=== PATIENT | male | born 1950 | race Caucasian/White ===

== ENCOUNTER 2018-05-07 11:20 | Day surgery (SDC) | payer MEDICARE ==
[~2018-05-07] VITALS: Ht 195.6 cm; Wt 115.7 kg
[~2018-05-07 11:20] MED LIST: ALPRAZOLAM0.5 MG PO; ASPIRIN EC325 MG PO; ATENOLOL100 MG PO; B COMPLEX1 EACH PO; CEPHALEXIN250 MG PO; CEPHALEXIN500 MG PO; CIPRO500 MG PO; CIPROFLOXACIN500 MG PO; COQ-10100 MG PO; DULCOLAX10 MG PR; GLIMEPIRIDE1 MG PO; GLYCOLAX225 GM PO; HYDROCODON-ACE1 EA10 PO; KEFLEX500 MG PO; LEVAQUIN750 MG PO; LEVO-T150 MCG PO; LOSARTAN POTAS100 MG PO; LOSARTAN POTASS25 MG PO; METAMUCIL FIBE3.4 GM PO; MULTIVITAMINS1 EAC8 PO; NORCO 5-325 TA1 EACH PO; OMEGA-31000 MG PO; OMEPRAZOLE20 M1 PO; PANTOPRAZOLE SO40 MG PO; POTASSIUM CHLO10 MEQ PO; PROBIOTIC1 EAC1 PO; PROTONIX40 MG PO; VERAPAMIL ER120 M1 PO; VERAPAMIL HCL120 MG; VITAMIN C250 MG PO; VITAMIN D5000 UNIT PO; WARFARIN SODIU7.5 MG PO; WARFARIN SODIUM5 MG PO
[2018-05-07] MEDS ORDERED: LEVAQUIN500 MG PO (17:30)
[2018-05-07] MEDS ORDERED: PERCOCET 5-3251 EACH PO (17:30)
[2018-05-07] MEDS ORDERED: PYRIDIUM200 MG PO (17:31)
--- NOTE | 2018-05-10 14:20 | OR ---
[facility] [address] [facility] [address] [place] [address] Signed DATE OF OPERATION: 05/07/2018 SURGEON: Vickie Hayes MD PREOPERATIVE DIAGNOSES: 1. 2.5 cm bladder calculus. 2. Neurogenic bladder with resulting urinary retention. POSTOPERATIVE DIAGNOSES: 1. 2.5 cm bladder calculus. 2. Neurogenic bladder with resulting urinary retention. NAMES OF PROCEDURES: 1. Diagnostic cystoscopy. 2. Urethral dilation from 16-Micronesian to 24-Micronesian. 3. Laser lithotripsy and extraction of multiple bladder calculi, the largest measuring 2.5 cm. ANESTHESIA: General. ESTIMATED BLOOD LOSS: Minimal. COMPLICATIONS: None. SPECIMENS: Multiple bladder calculi fragments sent to the lab for stone analysis. DRAINS: A 22-Micronesian three-way Rm catheter, connected to gravity drainage. INDICATIONS FOR PROCEDURE: Mr. Aparicio is a very pleasant 68-year-old gentleman with neurogenic bladder, which results in urinary retention. The patient currently catheterizes himself every 6 hours or so using a 14-Micronesian catheter. He has a history of urethral stricture and has reportedly undergone surgery for urethral stricture in the past. He recently underwent a KUB, given his history of a neurogenic bladder. He was found to have a 2.5 cm stone present within his bladder. He is a former patient of Dr. Kristina Paul, who at that Electronically Signed By: VICKIE HAYES MD 05/10/18 1420 PATIENT NAME: FABIENNE APARICIO OPERATIVE REPORT DATE OF : 52 REPORT #: [id number] PHYSICIAN: VICKIE HAYES MD PCP: Dez GUTIÉRREZ MD REPORT IS CONFIDENTIAL AND NOT TO BE RELEASED WITHOUT AUTHORIZATION [facility] [address] [place], [place] [address] Signed time noted bilateral Hutch diverticula that was subsequently causing issues with recurrent urinary tract infections. He presents today to undergo cystoscopy with possible urethral dilation, along with lithotripsy and extraction of his large bladder stone. OPERATIVE FINDINGS: 1. Urethroscopy revealed an approximately 16-Micronesian caliber pendulous urethra. No obvious strictures or stenoses noted. I was able to successfully dilate the patient's pendulous urethra from a 16-Micronesian to a 24-Micronesian without difficulty. 2. Diagnostic cystoscopy revealed presence of a large capacity bladder with two large Hutch diverticula located on the lateral wall of each side of the bladder. There is an approximately 2 cm os that communicates with each Hutch diverticulum. On the left-sided Hutch diverticulum, I located the very large 2.5 cm stone, along with multiple smaller stone fragments. 3. The large stone was basketed and brought out to the main portion of the bladder where it was then fragmented into smaller stones using a 600 micron fiber. All of the stone fragments were then extracted from the bladder via the cystoscope. 4. At the end of the procedure, a 22-Micronesian three-way Rm catheter was inserted into the patient's bladder and connected to gravity drainage. A three-way Rm catheter was inserted in anticipation of possible gross hematuria postoperatively. DESCRIPTION OF PROCEDURE: After informed consent was obtained, the patient was taken back to the operating room. He was transferred from the [facility] to the operating room table, where general anesthesia was induced. He was placed in the dorsal lithotomy position and his genitalia prepped and draped in a standard sterile fashion. Using a 30-degree lens on a 17-Micronesian introducer, rigid cystoscope was inserted through the patient's urethra and a complete urethroscopy was performed. Please see above findings. A 0.035 Sensor wire was placed into the patient's bladder via the cystoscope. The cystoscope was removed and then the patient's bladder was then dilated using Ad sounds over a wire from 16-Micronesian to 24-Micronesian without difficulty. I was then able to insert a 22-1/2-Micronesian sheath under direct visualization and a thorough cystoscopy was performed. Please see above findings. Bilateral ureteral orifices were in the normal anatomic location. There were no obvious bladder masses or lesions noted. There was however a very large stone located in the left Hutch diverticulum. The patient has two Hutch diverticula present on the lateral wall on both sides. There was approximately 2 cm os that communicates with the main bladder and each Hutch diverticulum. On the left side of the Hutch diverticulum where I located the multiple bladder calculi, the largest one measuring 2.5 cm in size. The smaller stone fragments were extracted immediately using a Zero tip basket. The large bladder calculus was brought out from the Hutch and into the main bladder where it was then fragmented using a 600 micron holmium laser fiber. Once the bladder stone was fragmented to my satisfaction, I extracted all the small stone Electronically Signed By: VICKIE HAYES MD 05/10/18 2599 PATIENT NAME: FABIENNE APARICIO OPERATIVE REPORT DATE OF : 52 REPORT #: [id number] PHYSICIAN: VICKIE HAYES MD PCP: Dez GUTIÉRREZ MD REPORT IS CONFIDENTIAL AND NOT TO BE RELEASED WITHOUT AUTHORIZATION [address] [address] Signed fragments via the cystoscope. Once the patient's bladder was completely free of stone, debris, and sediment, the patient's bladder was then drained and the cystoscope was removed. A 22-Micronesian three-way Rm catheter was inserted into the patient's bladder and connected to gravity drainage. The procedure was then terminated. The patient tolerated the procedure well without any complication. He will now be transferred to the postanesthesia care unit in stable condition. DISPOSITION: Mr. Aparicio will be discharged to home later today in stable condition. I discussed the results of today's procedure with his and answered all of her questions. He will be sent home with Levaquin for a total of 7 days. He will return to clinic in approximately 3 days to undergo removal of his Rm catheter. He will then return to his usual self catheterization schedule. I recommended to the patient that he increase the diameter of his catheters to 16-Micronesian. I also had a long discussion with the patient's today regarding ways to diminish his risk of recurrent UTIs and bladder stones. I recommended that the best way to do so would be to undergo a diverticulectomy at the hands of a surgeon, who specializes in this area. The will discuss this in detail with her once he is fully recovered. MD TUTU Aguilar/RIVAS /[id number] Copies: ~ Electronically Signed By: VICKIE HAYES MD 05/10/18 1420 PATIENT NAME: FABIENNE APARICIO OPERATIVE REPORT DATE OF : 52 REPORT #: [id number] PHYSICIAN: VICKIE HAYES MD PCP: Dez GUTIÉRREZ MD REPORT IS CONFIDENTIAL AND NOT TO BE RELEASED WITHOUT AUTHORIZATION
[2018-05-15] MEDS ORDERED: VERAPAMIL ER120 M1 PO (12:42)
[2018-05-15] MEDS ORDERED: ATENOLOL50 MG PO (12:43)
[2018-05-15] MEDS ORDERED: WARFARIN SODIUM5 MG PO (14:22)
[2018-05-15] MEDS ORDERED: METAMUCIL660 GM PO (14:25)
== END 2018-05-07 18:35 | disposition home or self-care (01) ==
LOC: DS 11:20 → OPS 11:20 → DS 13:00 → OPS 18:35
PROVIDERS: Urology
PROC: 0TCB8ZZ Extirpation of Matter from Bladder, Via Natural or Artificial Opening Endoscopic (ICD-10-PCS; principal; 2018-05-07 13:00)
DX: N21.0 Calculus in bladder (principal); N32.3 Diverticulum of bladder; N31.9 Neuromuscular dysfunction of bladder, unspecified; R33.9 Retention of urine, unspecified; I10 Essential (primary) hypertension; E11.9 Type 2 diabetes mellitus without complications; E03.9 Hypothyroidism, unspecified; D68.9 Coagulation defect, unspecified; F32.9 Major depressive disorder, single episode, unspecified; Z88.1 Allergy status to other antibiotic agents; Z86.73 Personal history of transient ischemic attack (TIA), and cerebral infarction without residual deficits; Z79.82 Long term (current) use of aspirin; Z79.84 Long term (current) use of oral hypoglycemic drugs; Z79.899 Other long term (current) drug therapy
CPT/HCPCS: 82365; J1580; J2250; J2370; J2405; J3010; J3370; J7040; J7120

== ENCOUNTER 2018-08-26 09:56 | Emergency (ER) | payer MEDICARE ==
[~2018-08-26] VITALS: Ht 195.6 cm; Wt 115.7 kg
--- OUTSIDE RECORDS SUMMARY | ~2018-08-26 | XMS | Clinical Summary ---
Demographics + + + | Address | [address] | | | [place] [address] | + + + | Home Phone | | + + + | Preferred Language | Unknown | + + + | Marital Status | Unknown | + + + | Yazidism Affiliation | Unknown | + + + | Race | Unknown | + + + | Ethnic Group | Unknown | + + + Author + + + | Author | [facility] | | | and Pb | + + + | Organization | [facility] | | | and [place] | + + + | Address | Unknown | + + + | Phone | Unavailable | + + + Care Team Providers + +------+ + | Care Assignment Officer Name | Role | Phone | + +------+ + PP | Unavailable | + +------+ + Allergies Not on File Current Medications Not on file Active Problems Not on file Social History + +-------+ +--------+------+ | Tobacco Use | Types | Packs/Day | Years | Date | | | | | Used | | + +-------+ +--------+------+ | Never Assessed | | | | | + +-------+ +--------+------+ + + + | Sex Assigned at | Date Recorded | | | | + + + | Not on file | | + + + Plan of Treatment + + + + + | Health Maintenance | Due Date | Last Done | Comments | + + + + + | Vaccine: | | | | | Dtap/Tdap/Td (1 - | 0 | | | | Tdap) | | | | + + + + + | Vaccine: Zoster (1 | | | | | of 2) | 1 | | | + + + + + | Vaccine: | | | | | Pneumococcal 65+ | 6 | | | | Low/Medium Risk (1 | | | | | of 2 - PCV13) | | | | + + + + + | Vaccine: Influenza | | | | | (#1) | 8 | | | + + + + + Results Not on filefrom Last 3 Months"
--- OUTSIDE RECORDS SUMMARY | ~2018-08-26 | XMS | Clinical Summary ---
Demographics + + + | Address | [address] | | | [place] [address] | + + + | Home Phone | | + + + | Preferred Language | Unknown | + + + | Marital Status | Unknown | + + + | Cheondoism Affiliation | Unknown | + + + | Race | Unknown | + + + | Ethnic Group | Unknown | + + + Author + + + | Author | NON REVENUE LOCATIONS | + + + | Organization | NON REVENUE LOCATIONS | + + + | Address | Unknown | + + + | Phone | Unavailable | + + + Care Team Providers + +------+ + | Care Field Crop Harvest Worker Name | Role | Phone | + +------+ + PP | Unavailable | + +------+ + Source Comments PAULA is fully live on both [facility] and [facility] Allergies Not on File Current Medications Not [...] | + + + + + | Pneumococcal (Adult) | | | | | (1 of 2 - PCV13) | 6 | | | + + + + + | INFLUENZA VACCINE | | | | | (FLU SHOT) | 8 | | | + + + + + Results Not on filefrom Last 3 Months"
--- OUTSIDE RECORDS SUMMARY | ~2018-08-26 | XMS | Clinical Summary ---
Demographics + + + | Address | [address] | | | [place] [address] | + + + | Home Phone | | + + + | Preferred Language | Unknown | + + + | Marital Status | Unknown | + + + | Jewish Affiliation | Unknown | + + + | Race | Unknown | + + + | Ethnic Group | Unknown | + + + Author + + + | Author | [facility] | | | and Pb | + + + | Organization | [facility] | | | and [place] | + + + | Address | Unknown | + + + | Phone | Unavailable | + + + Care Team Providers + +------+ + | Care Nurse Care Manager Name | Role | Phone | + [...]
--- OUTSIDE RECORDS SUMMARY | ~2018-08-26 | XMS | Clinical Summary ---
Demographics + + + | Address | [address] | | | [place] [address] | + + + | Home Phone | | + + + | Preferred Language | Unknown | + + + | Marital Status | Unknown | + + + | Christian Affiliation | Unknown | + + + [...] Team Providers + +------+ + | Care Tank Cleaner Name | Role | Phone | + +------+ + PP | Unavailable | + +------+ + Source Comments PAULA is fully live on both [facility] and [facility] InPatient.[facility] Allergies Not on File Current Medications Not [...]
[~2018-08-26 09:56] MED LIST changes: +ATENOLOL50 MG PO; +IRON325 M1 PO; +LEVAQUIN500 MG PO; +LIPITOR20 MG PO; +METAMUCIL660 GM PO; +PERCOCET 5-3251 EACH PO; +PYRIDIUM200 MG PO
== END 2018-08-26 15:15 | disposition home or self-care (01) ==
LOC: ED 09:56
DX: M25.551 Pain in right hip (principal); R53.1 Weakness; E11.9 Type 2 diabetes mellitus without complications; I10 Essential (primary) hypertension; Z88.8 Allergy status to other drugs, medicaments and biological substances; Z79.899 Other long term (current) drug therapy; Z79.84 Long term (current) use of oral hypoglycemic drugs; Z79.01 Long term (current) use of anticoagulants; W17.89XA Other fall from one level to another, initial encounter
CPT/HCPCS: 70450; 73502; 73700; 99284

== ENCOUNTER 2020-01-20 14:44 | Observation (INO) | payer MEDICARE ==
[~2020-01-20] VITALS: Ht 195.6 cm; Wt 108.4 kg
[~2020-01-20 14:44] MED LIST changes: +LIPITOR10 MG PO; +VITAMIN D32000 UNI1 PO
--- OUTSIDE RECORDS SUMMARY | 2020-01-20 14:48 | XMS ---
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 Care History Medical/Surgical 07/09/2019 [facility] - [facility] RECEIVED CASE MANAGEMENT CONSULT- FOR FOLLOW UP WITH PATIENT AFTER ED DISCHARGE. - [facility] PROVIDED ED NOTES TO PATIENT UROLOGIST DR HAYES. DR HAYES WILL BE CONTACTING PATIENT TODAY 07/09/19 AND SCHEDULING A FOLLOW UP APT. 07/09/2019 [facility] - Patient is currently established with [facility]. If patient is seen in the ED during business hours. Please contact CHWs at [facility]. Care Recommendation: This patient has had 5 or more Emergency Department visits in the last 12 months.\T\nbsp; Patient requires education on the scope and purpose of the ED as an acute care provider not a Primary Care Provider and should not be utilized for chronic conditions.\T\nbsp; These are guidelines and the provider should exercise clinical judgment when providing care. E.D. VISIT COUNT (12 MO.) 2 [facility]. TOTAL 2 NOTE: Visits indicate total known visits. 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
--- NOTE | 2020-01-20 17:50 | EKG ---
[facility] [address], [place] [address] Signed Normal sinus rhythm Low voltage QRS Borderline ECG When compared with ECG of 01-MAY-2018 14:59, No significant change was found Confirmed by WILLIS PENA MD ([id number]) on 01/20/2020 5:50:06 PM Electronically Signed By: WILLIS PENA MD 01/20/20 175 PATIENT NAME: DIDIERFABIENNE THIAGO Electrocardiogram DATE OF : 52 PHYSICIAN: WILLIS PENA MD REPORT #: [id number] REPORT IS CONFIDENTIAL AND NOT TO BE RELEASED WITHOUT AUTHORIZATION
--- NOTE | 2020-01-20 22:10 | NUR ---
ADMISSION COMPLETED. PATIENT ARRIVED VIA STRETCHER. PATIENT MOVED TO BED FROM STRETCHER. PATIENT HAS [address] PATIENTS MACHUCA EMPTIED. MACHUCA CARE COMPLETED. PATIENT OREINTED TO FLOOR, CALL LIGHT, AND ROOM. PATIENT DENIES ANY QUESTIONS. NO NEEDS NOTED. CALL LIGHT IN REACH.
--- NOTE | 2020-01-20 22:38 | NUR ---
EMPTIED MACHUCA AND NEW BAG OF IRIGATION IN PLACE.
[2020-01-20] MEDS ORDERED: NITROFURANTOIN100 MG PO (23:23)
--- NOTE | 2020-01-20 23:24 | NUR ---
IN ROOM TO ASSESS PT AND EMPTY CBI BAG. INCREASED FLUID RATE AGAIN DRAINAGE IS STILL PRETTY RED. PT REPORTS FEELING SHAKY, ALTHOUGH IT IS NOT VISABLY SEEN. TOOK HIS VS AGAIN AND THEY ARE ALL WNL. HE REPORTS IS BS WAS RECENTLY TAKEN AND IS 166 AND HE ATE A SANDWICH AND APPLEJUICE WHEN HE ARRIVED TO THE FLOOR. PT HAS RESIDUAL R SIDED WEAKNESS AND N/T FROM PRIOR STROKE WELL BILAT LE NEUROPATHY. HE DENIES FURTHER NEEDS AT THIS TIME ADVISED PT TO CALL AND LET US KNOW IF SHAKING GETS WORSE. CALL LIGHT IN HAND AND HE REPORTS NOT FEELING COLD WITH BLANKETS OFF.
--- NOTE | 2020-01-20 23:58 | NUR ---
WENT IN TO THE ROOM TO EMPTY THE CBI BAG. PATIENT STATED "IT STARTING HURT AGAIN". PRIMARY RN NOTIFIED. WARM BLANKET PROVIDED.
--- NOTE | 2020-01-21 00:07 | NUR ---
WENT INTO ROOM TO TALK TO PT ABOUT PAIN AND PT IS RESTING WITH EYES CLOSED AT THIS TIME. CALL LIGHT IS CLOSE.
--- NOTE | 2020-01-21 01:30 | NUR ---
MACHUCA BAG CLOTTED AND CHANGED OUT FOR A NEW ONE. PT WAS ALSO HAVING 7/10 PAIN AT THIS TIME AND LINE WAS NOT RUNNING MUCH. COMMISSARY AGENT FLUSHED CATHETER AND IT A CLOT FLOWED OUT. PT HAD IMMEDIATE RELIEF AND NO LONGER WAS IN PAIN. TURNED FLUID UP RUNNING THROUGH CBI. PT DENIES FURTHER NEEDS AT THIS TIME CALL LIGHT IS WITHIN REACH.
--- NOTE | 2020-01-21 02:20 | NUR ---
ADMINSITERED INSULIN AND EMPTIED MACHUCA. CBI IS INFUSING FINE, PT DENIES PAIN AT THIS TIME. CALL LIGHT IS CLOSE.
--- NOTE | 2020-01-21 03:35 | NUR ---
EMPTIED MACHUCA, IN ORDER TO KEEP IT FROM CLOTTING THE BAGS HAVE TO BE CHECKED [id number] ALONG WITH EMPTYING THE MACHUCA BAG. PT DENIES PAIN AT THIS TIME. CALL LIGHT IS CLOSE.
--- NOTE | 2020-01-21 04:15 | NUR ---
EMPTIED MACHUCA AND HUNG 2 NEW BAGS OF CBI FLUID. PT IS RESTING WITH EYES CLOSED, RR IS EVEN AND NONLABORED. IV IS INFUSING FINE. NO CLOTS NOTED IN CBI BAG.
--- NOTE | 2020-01-21 04:45 | NUR ---
EMPTIED MACHUCA BAG. PT IS RESTING WITH EYES CLOSED, RR IS EVEN AND NONLABORED. CALL LIGHT IS CLOSE.
--- NOTE | 2020-01-21 05:19 | NUR ---
IN ROOM TO START NEW IV FLUID. DUSTIN LARA RN SWITCHED MACHUCA BAG TO LARGER BAG. PT DENIES PAIN AT THIS TIME. HIS CBI FLUID IS RUNNING LIGHT PINK NOW. CALL LIGHT IS CLOSE AND IV IS INFUSING FINE.
--- NOTE | 2020-01-21 06:09 | NUR ---
PT TRIED USING BED ALEXIS BUT DID NOT HAVE A BM. AFTER ROLLING TO HIS SIDE HIS HIS CBI TUBING INCREASED IN REDNESS FROM LIGHT PINK. PT DENIES NEEDS AT THIS TIME. CALL LIGHT IS CLOSE.
--- NOTE | 2020-01-21 06:55 | NUR ---
PLACED CALL TO MD TO UPDATE PATIENT. MD UPDATED AND ALL QUESTIONS ANSWERED. LAB ORDERED PER MD. LAB NOTIFIED. LAB ON THE FLOOR TO DRAW LABS.
--- NOTE | 2020-01-21 07:45 | NUR ---
PT TRANSPORTED TO OR VIA HOSPITAL BED.
--- NOTE | 2020-01-21 09:21 | NUR ---
01/21/20 0921 Audrey Brandt 0908-PATIENT ARRIVED TO PACU ON 6L MASK NONAROUSABLE. ORAL AIRWAY IN PLACE. PATIENTS HEAD REPOSITIONED TO MAINTAIN OPEN AIRWAY. SR. CBI CONNECTED TO MACHUCA DRAINING CLEAR URINE. CBI WAS SLOWED DOWN BY RETAIL FINANCIAL ANALYST. 0914-PATIENT AROUSING TO VERBAL STIMULI OPENING EYES ORAL AIRWAY REMOVED. 0918-PLACED ON RA. RR EVEN. 100% PATIENT AWAKE DROWSY DENIES PAIN OR NAUSEA.
[2020-01-21] MEDS ORDERED: ATORVASTATIN CA20 MG PO (09:49)
[2020-01-21] MEDS ORDERED: GLIMEPIRIDE2 MG PO (09:53)
--- NOTE | 2020-01-21 10:10 | NUR ---
PT TO ROOM 123 FROM PACU. PT ALERT AND ORIENTED ON ROOM AIR, REPORTS NO PAIN OR NAUSEA AT THIS TIME. V/S SATBLE, CBI INFUSING TITRATING DOWN, URINE IN MACHUCA TUBE AND BAG CLEAR YELLOW.
--- NOTE | 2020-01-21 10:35 | NUR ---
RECIEVED REPORT FROM DESIREE. PT LYING IN BED AWAKE. DENIES PAIN OR PRESSURE. CBI FLOWING AT SLOW RATE, URINE IN BAG AND TUBE CLEAR AND LIGHT YELLOW. IV INFUSING WNL. CLEAR LIQUIDS ORDERED. CALL LIGHT WITHIN REACH.
--- NOTE | 2020-01-21 13:00 | NUR ---
Spoke with Eder following his surgery. He lives in [place] with his . 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 House is a 1 story with 2 steps to get in. He has handrails. Daughter checks on them. He states his has been ill with sepsis and recently released from [place]. He self caths and get his equipment from [facility]. Has Walker, shower chair, and tall toilet. Per pt he will dc to home this afternoon.
--- NOTE | 2020-01-21 13:14 | NUR ---
PATIENT SITTING UP IN BED TAKING HIS LUNCH. VITAL SIGNS AND I&O DONE. ICE WATER GIVEN. CALL LIGHT WITHIN REACH. NO OTHER NEEDS AT THIS TIME
[2020-01-21] MEDS ORDERED: [UNRECOGNIZED DRUG - OTHER] (13:35)
[2020-01-21] MEDS ORDERED: PERCOCET 5-3251 EACH PO (13:43)
[2020-01-21] MEDS ORDERED: BELLADONNA-OPIU30 MG PR (13:44)
--- NOTE | 2020-01-21 13:45 | NUR ---
CBI CLAMPED AT THIS TIME. URINE REMAINS CLEAR LIGHT YELLOW. PT HAS AMALIA CLEAR LIQUIDS. DENIES PAIN OR OTHER CONCERN. ASSISTED TO ORDER LUNCH. CALL LIGHT WITHIN REACH.
--- NOTE | 2020-01-21 16:15 | NUR ---
APPLIED LEG BAG PER ORDERS AND EDUCATED PT AND HIS ON USE OF LEG BAG, OVERNIGHT BAG, AND MACHUCA CATH CARE. WHEN PT MOVED TO EDGE OF BED TO GET DRESSED IT WAS NOTED THAT HE HAD A SMALL AMOUNT OF BRIGHT RED BLEEDING FROM URETHRAL MEATUS. CLEANED UP AND BLEEDING STOPPED QUICKLY. PT CONT TO GET DRESSED WITH HELP FROM . IV'S DC'D WNL.
--- NOTE | 2020-01-21 16:25 | NUR ---
CALLED TO REPORT PT CONCERNS OF FEELING WEAK AT THIS TIME. DR. HAYES FEELS HE IS SAFE TO DISCHARGE, PT HAS BEEN UP IN ROOM TO DRESS WITH MINIMAL ASSIST AND WAS ABLE TO AMBULATE WITH HIS OWN WALKER WITH STREADY PACE TO TRANSFER TO WHEELCHAIR.
--- NOTE | 2020-01-27 08:09 | OR ---
[facility] [address], [place] [address] Signed DATE OF OPERATION: 01/21/2020 SURGEON: Vickie Hayes MD PREOPERATIVE DIAGNOSES: 1. Acute onset severe gross hematuria, with associated blood clots. 2. Urinary retention. 3. Neurogenic bladder, secondary to longstanding bladder outlet obstruction. POSTOPERATIVE DIAGNOSES: 1. Acute onset severe gross hematuria, with associated blood clots. 2. Urinary retention. 3. Neurogenic bladder, secondary to longstanding bladder outlet obstruction. 4. No obvious evidence of source of gross hematuria, cause of hematuria likely secondary to trauma during self catheterization. NAMES OF PROCEDURES: 1. Diagnostic cystoscopy with blood clot evacuation and bladder irrigation. 2. Complicated insertion of indwelling 24-Mauritanian 3-way Rm catheter. ANESTHESIA: General. ESTIMATED BLOOD LOSS: 100 mL. COMPLICATIONS: None. SPECIMENS: None. DRAINS: A 24-Mauritanian 3-way Rm catheter, connected to continuous bladder irrigation. INDICATIONS FOR PROCEDURE: Mr. Aparicio is a very pleasant -[id number] gentleman, who is relatively well known to me. Over a year ago, he underwent cystoscopy with cystolitholapaxy for extraction of multiple large bladder stones present in his bilateral Hutch bladder diverticula. He has a history of urinary retention secondary to neurogenic bladder, Electronically Signed By: VICKIE HAYES MD 01/27/20 0809 PATIENT NAME: FABIENNE APARICIO OPERATIVE REPORT DATE OF : 52 REPORT #: [id number] PHYSICIAN: VICKIE HAYES MD PCP: JEZ PEGUERO MD REPORT IS CONFIDENTIAL AND NOT TO BE RELEASED WITHOUT AUTHORIZATION [facility] [address] [place], [place] [address] Signed which developed as a consequence of longstanding bladder outlet obstruction. The patient currently manages his bladder with self catheterization q.4 hours. The patient reports approximately 4 days ago, he noticed beginnings of some gross hematuria at the end of catheterization. This worsened very quickly to the point where he was experiencing active blood clots and experiencing difficulties with self catheterization. He also subsequently experienced clot retention and was seen in the emergency department on the evening of January 20, 2020, for severe gross hematuria with associated bladder spasms. He underwent a CT scan at that time, which revealed multiple well-organized blood clots within the patient's otherwise very distended bladder. A nurse in the emergency department manually irrigated the patient, was able to get some of the blood clots out, however the catheter was not draining on its own and required continuous bladder irrigation. Of note, his blood work was otherwise within normal limits including hemoglobin in the 15 range. He was admitted by ma and placed on continuous bladder irrigation for management of his persistent gross hematuria. Of note, the patient takes Coumadin daily for history of ischemic stroke, which occurred a few years ago. On the following morning, the patient's gross hematuria was still rather severe and requiring multiple bags of sterile saline to keep the Rm catheter patent. The decision was made at that time to take the patient to the operating room, where he would undergo cystoscopy with blood clot evacuation and to hopefully determine the cause of the gross hematuria. OPERATIVE FINDINGS: 1. Digital rectal examination was performed, which revealed diffusely enlarged prostate with no evidence of any discrete nodules on palpation. 2. Diagnostic cystoscopy revealed no evidence of any obvious urethral trauma. The bladder was full of well-organized blood clots located in the main chamber of the bladder as well as in the bilateral Hutch diverticula. These clots were irrigated out successfully using a Osman syringe. 3. Formal diagnostic cystoscopy performed without obstructing blood clot revealed no obvious evidence of the source of the bleeding. There was no evidence of any suspicious masses, lesions, or stones within the bladder. There were a couple of areas of erythema on the wall of the bladder, consistent with his recent indwelling Rm catheter. 4. After all the blood clots were successfully extracted from the patient's bladder, a 24-Mauritanian 3-way Rm catheter was inserted into the patient's bladder over a Sensor wire to ensure proper placement. This catheter was then connected to continuous bladder irrigation. DESCRIPTION OF PROCEDURE: After informed consent was obtained, the patient was taken back to the operating room. He was transferred from the [facility] to the operating room table, where general anesthesia was induced. He was placed in the dorsal lithotomy position and his genitalia prepped and draped in a standard sterile fashion. Using a 30-degree lens on a 22-1/2 Mauritanian Electronically Signed By: VICKIE HAYES MD 01/27/20 0809 PATIENT NAME: FABIENNE APARICIO OPERATIVE REPORT DATE OF : 52 REPORT #: [id number] PHYSICIAN: VICKIE HAYES MD PCP: JEZ PEGUERO MD REPORT IS CONFIDENTIAL AND NOT TO BE RELEASED WITHOUT AUTHORIZATION [address] [address] Signed introducer, a rigid cystoscope was inserted through the urethra and into his bladder under direct visualization. Panendoscopic views of the bladder were then obtained. Please see above findings. The cystoscope was removed and the patient's bladder was irrigated with a Osman syringe. I was able to extract quite a few very large well-organized clots from the patient's bladder. This required about 15-20 minutes of active manual bladder irrigation. A cystoscopy was repeated and this time I was able to easily appreciate the entire bladder and closely inspect the wall of the bladder and the Hutch diverticula. There is no evidence of any overt prostatic hypertrophy as he had had a TURP in the past. Once I was satisfied that there were no obvious areas that required cauterization, the cystoscope was removed. A Sensor wire was inserted through the 26-Mauritanian sheath and into the patient's bladder. The sheath was removed fully intact. Over the wire, a 24-Mauritanian 3-way Rm catheter was inserted into the patient's bladder, connected to continuous bladder irrigation. The procedure was then terminated. The patient was taken to the PACU in stable condition. DISPOSITION: I discussed the details of today's procedure with the patient and his and answered all their questions. I anticipate that the patient will be discharged to home later today with a Rm catheter to gravity drainage. I have ordered the patient to stop use of his Coumadin for now until I can speak with Dr. Peguero and request that he see the patient in consultation to reassess the need for daily Coumadin use in a patient with a relatively remote history of ischemic CVA. He was also instructed to continue his current Macrobid suppression dose, 100 mg p.o. at bedtime for prevention of recurrent UTIs. He will be scheduled to return to Urology Clinic in one week with a nurse visit to have his Rm catheter removed. Hopefully at that time we will have a better idea of whether or not he will need to remain on Coumadin therapy. Vickie Hayes MD AR/MODL /[id number] Copies: Electronically Signed By: VICKIE HAYES MD 01/27/20 0809 PATIENT NAME: FABIENNE APARICIO OPERATIVE REPORT DATE OF : 52 REPORT #: [id number] PHYSICIAN: VICKIE HAYES MD PCP: JEZ PEGUERO MD REPORT IS CONFIDENTIAL AND NOT TO BE RELEASED WITHOUT AUTHORIZATION [address] [address] Signed ~ Electronically Signed By: VICKIE HAYES MD 01/27/20 0809 PATIENT NAME: FABIENNE APARICIO OPERATIVE REPORT DATE OF : 52 REPORT #: [id number] PHYSICIAN: VICKIE HAYES MD PCP: JEZ PEGUERO MD REPORT IS CONFIDENTIAL AND NOT TO BE RELEASED WITHOUT AUTHORIZATION
--- NOTE | 2020-01-29 10:08 | NUR ---
FOLLOW UP CALL WITH PT. STATES HE HAD ONE FOLLOW UP VISIT WITH DR HAYES OFFICE AND THEY REMOVED HIS MACHUCA AND SINCE HE HAS BEEN SELF CATHING LIKE HE NORMALLY DOES. NOTED SOME BLOOD AND A FEW CLOTS. BUT IS FOLLOWING UP WITH DR PEGUERO THIS AFTERNOON. STATES HE IS INCREASING HIS ACTIVITY GRADUALLY AND THINKS DR PEGUERO MAY RESTART HIS COUMADIN OR SOMETHING. DENIES FURTHER QUESTIONS, OR CONCERNS AT THIS TIME.
== END 2020-01-21 16:33 | disposition home or self-care (01) ==
LOC: ED 14:44 → MS 14:46
PROVIDERS: ADMIT Urology
PROC: 0T9B80Z Drainage of Bladder with Drainage Device, Via Natural or Artificial Opening Endoscopic (ICD-10-PCS; 2020-01-21)
PROC: 0TCB8ZZ Extirpation of Matter from Bladder, Via Natural or Artificial Opening Endoscopic (ICD-10-PCS; principal; 2020-01-21 07:49)
DX: R31.0 Gross hematuria (principal); R33.9 Retention of urine, unspecified; N31.9 Neuromuscular dysfunction of bladder, unspecified; N13.9 Obstructive and reflux uropathy, unspecified; N32.89 Other specified disorders of bladder; E11.9 Type 2 diabetes mellitus without complications; E78.00 Pure hypercholesterolemia, unspecified; I10 Essential (primary) hypertension; N32.0 Bladder-neck obstruction; Z87.440 Personal history of urinary (tract) infections; Z86.73 Personal history of transient ischemic attack (TIA), and cerebral infarction without residual deficits; Z88.8 Allergy status to other drugs, medicaments and biological substances; Z88.1 Allergy status to other antibiotic agents; Z79.2 Long term (current) use of antibiotics; Z79.01 Long term (current) use of anticoagulants; Z79.84 Long term (current) use of oral hypoglycemic drugs; Z79.899 Other long term (current) drug therapy
CPT/HCPCS: 00910; 36415; 51700; 51702; 71045; 74177; 80053; 81001; 83605; 85025; 85610; 86850; 86900; 86901; 87040; 93005; 93010; 96361; 99285-25; G0378; J0692; J1100; J1170; J1815; J2001; J2370; J2405; J2704; J3010; J7030

== ENCOUNTER 2021-10-09 20:02 | Observation (INO) | payer MEDICARE ==
[~2021-10-09] VITALS: Ht 195.6 cm; Wt 111.9 kg
[~2021-10-09 20:02] MED LIST changes: +ATORVASTATIN CA20 MG PO; +BELLADONNA-OPIU30 MG PR; +FEROSUL325 MG PO; +GLIMEPIRIDE2 MG PO; -IRON325 M1 PO; +NITROFURANTOIN100 MG PO; +VITAMIN D3125 MC1 PO; -VITAMIN D5000 UNIT PO; +[UNRECOGNIZED DRUG - OTHER]
--- NOTE | 2021-10-10 01:13 | NUR ---
REPORT FROM FABIENNE Zimmer RN.
--- NOTE | 2021-10-10 01:46 | NUR ---
PT ARRIVED TO [facility] FLOOR AT 0116 AND WAS PULLED OVER TO BED 3PA. VS TAKEN AND ENTERED AND WNL. MACHUCA CATH IN PLACE. PT HAS FWW FROM HOME IN ROOM. COMPLETED ADMISSION HX WITH PT. PT IS POOR HISTORIAN WITH DETAILS OF MEDICATIONS. SUGAR FREE JELLO PROVIDED AND PT DENIES FURTHER NEEDS. CALL LIGHT IS CLOSE.
--- NOTE | 2021-10-10 02:35 | NUR ---
PT RESTING IN BED EYES CLOSED RR EVEN 20 BPM, NO DISTRESS NOTED.
--- NOTE | 2021-10-10 05:40 | NUR ---
PT ADMITTED FROM [facility] AT 0116, HE ARRIVED ALERT AND ORIENTED, RIGHT SIDE FACIAL SWELLING/CELLULITIS. SHE REPORTS NO PAIN OVER SHIFT, HE WAS ABLE TO ASSIST TRANSFER FROM STRETCHER TO HOSPITAL BED. HE USES FWW AT BASELINE SINCE CVA 2013 RESIDUAL RIGHT SIDED WEAKNESS. PER HAS POOR DENTURE. HE HAS SLEPT SINCE ADMIT.
--- NOTE | 2021-10-10 07:36 | NUR ---
PT APPEARS TO BE SLEEPING SOUNDLY AT SHIFT EXCHANGE, LEFT UNDISTUBED. CALL LIGHT IN REACH, BREATHING EVEN AND UNLABORED.
--- NOTE | 2021-10-10 10:30 | NUR ---
pt awake and cooperative for morning meal. states eating is difficult due to dental issues. remains resting in bed after meal, up to toilet at this time sba using fww.
--- NOTE | 2021-10-10 12:41 | NUR ---
pt has continued to rest in bed this shift. up to the toilet a few times then returns to resting. noon meal served pt eating soup. denies pain or needs of
--- NOTE | 2021-10-10 16:20 | NUR ---
PT CONTINUES TO SLEEP MOST OF THIS SHIFT. UP TO THE TOILET SEVERAL TIMES TO MOVE HIS BOWELS RETURNS TO RESTING EYES CLOSED. STATES HE JUST DOESN'T FEEL GOOD. DENIES PAIN OR SPECIFIC C/O.
--- NOTE | 2021-10-10 19:31 | NUR ---
SHIFT REPORT RECEIVED BY THIS NURSE FROM SADIE DE SANTIAGO. PATIENT VISITING WITH HIS IN THE ROOM AT THIS TIME. PATIENT DENIES ANY CARE NEEDS AT THIS TIME. CALL LIGHT IS IN REACH.
--- NOTE | 2021-10-10 21:19 | NUR ---
IV PUMP ALARMING, pt RESTING IN BED ASLEEP, BREATHING UNLABORED. AWAKENS TO VOICE. pt TALKATIVE, ALERT. IV SITE FLUSHED WNL AND IV ANTIBIOTIC INFUSING ORDERED. CBG 213, SS INSULIN ADMINISTERED. VSS. CALL LIGHT IN REACH.
--- NOTE | 2021-10-10 21:20 | NUR ---
V/S AND I&O'S DONE. BLOOD SUGAR CHECK DONE. ICE WATER REFILLED.
--- NOTE | 2021-10-10 21:25 | NUR ---
PATIENT RESTING QUIETLY IN BED ON HIS LEFT SIDE. PATIENT A+O AND DENIES PAIN AND NAUSEA. ASSESSMENT COMPLETE, VS STABLE, ICE WATER IS FULL, NEW IV BAG HANGING, CALL LIGHT IN REACH, AND PATIENT DENIES ANY OTHER CARE NEEDS AT THIS TIME. LIGHTS TURNED DOWN.
--- NOTE | 2021-10-10 23:24 | NUR ---
PATIENT ASSISTED TO THE BATHROOM WITH FWW BY BALTAZAR CHARGE NURSE. PATIENT HAD A BM AND IS BACK TO BED. PATIENT'S MACHUCA BAG EMPTIED BY THIS RN. PATIENT HAD NO FURTHER CARE NEEDS AT THIS TIME. CALL LIGHT IS IN REACH.
--- NOTE | 2021-10-11 01:50 | NUR ---
PATIENT'S IV PUMP WAS BEEPING AND PATIENT HAD ROLLED ON TUBING OCCLUDING IT. OCCLUSION RESOLVED AND ANTIBIOTIC FOR 2AM STARTED. PATIENT HAD NO OTHER CARE NEEDS AT THIS TIME. CALL LIGHT IS IN REACH.
--- NOTE | 2021-10-11 03:53 | NUR ---
PATIENT RESTING QUIETLY ON HIS LEFT SIDE, EYES CLOSED, RESPIRATIONS ARE REGULAR AND EVEN, AND CALL LIGHT IS IN REACH. PATIENT HAS NO CARE NEEDS AT THIS TIME.
--- NOTE | 2021-10-11 05:30 | NUR ---
PATIENT SLEEPING WHEN THIS RN AND DAVIN WILSON CAME IN TO DO VS AND AM ASSESSMENTS. PATIENT DENIES PAIN AND STATUS HAS NOT REALLY CHANGED TONIGHT. FACIAL REDNESS AND SWELLING IS DOWN FROM INITAL ADMISSION TIME. PATIENT HAD NO OTHER CARE NEEDS AT THIS TIME. CALL LIGHT IS IN REACH.
--- NOTE | 2021-10-11 07:21 | NUR ---
PT RESTING EYES CLOSED AT TIME OF SHIFT EXCHANGE. CALL LIGHT IN REACH, LEFT UNDISTURBED
--- NOTE | 2021-10-11 10:30 | NUR ---
Spoke with pt, he has history of CVA, self cathing, uses a walker. Pt denies needs. He states he drives and does all the grocery shopping. He is set up with a [email or web address] company as he st. caths 6 x per day. He denies needs and will pick him up this afternoon.
--- NOTE | 2021-10-11 10:38 | NUR ---
PT UP TO TOILET ABLE TO MOVE BOWELS. RETURNS TO SITTING IN BED EATS 100% OF MORNING MEAL. AGREES HE FEELS BETTER TODAY.
[2021-10-11] MEDS ORDERED: AUGMENTIN 875-1 EACH PO (10:54)
--- NOTE | 2021-10-11 14:09 | NUR ---
PATIENT TO EDGE OF BED, SBA FWW. PATIENT GETTING READY TO DISCHARGE. VITALS AND I&O'S CHARTED. CALL LIGHT IN REACH. NO FURTHER NEEDS AT THIS TIME.
--- NOTE | 2021-10-11 14:38 | NUR ---
PTS RIDE IS HERE ESCORTED OUT VIA W/C
== END 2021-10-11 14:40 | disposition home or self-care (01) ==
LOC: ED 20:02 → MS 20:05
PROVIDERS: ADMIT Internal Medicine; ATTEND Internal Medicine
DX: L03.211 Cellulitis of face (principal); E11.65 Type 2 diabetes mellitus with hyperglycemia; I69.351 Hemiplegia and hemiparesis following cerebral infarction affecting right dominant side; E03.9 Hypothyroidism, unspecified; N31.9 Neuromuscular dysfunction of bladder, unspecified; R31.9 Hematuria, unspecified; Z88.8 Allergy status to other drugs, medicaments and biological substances; Z87.440 Personal history of urinary (tract) infections; Z79.84 Long term (current) use of oral hypoglycemic drugs; Z20.822 Contact with and (suspected) exposure to COVID-19
CPT/HCPCS: 70487; 71045; 80048; 80053; 81001; 83605; 83735; 85025; 90694; C9803; J0295; J1815; J2405; J3370; J7030; J7060; Q9967; U0003

== ENCOUNTER 2021-11-03 21:11 | Inpatient (IN) | payer MEDICARE ==
[~2021-11-03] VITALS: Ht 195.6 cm; Wt 110.4 kg
[~2021-11-03 21:11] MED LIST changes: +AUGMENTIN 875-1 EACH PO
--- OUTSIDE RECORDS SUMMARY | 2021-11-03 21:18 | XMS ---
PreManage Notification: FABIENNE VELÁSQUEZ Security Tour Guide Events No recent Security Events currently on file CRITERIA MET - [facility] - 2 Visits in 30 Days CARE PROVIDERS MARIELENA [facility] Internal Medicine 07/09/2019-Current PHONE: [phone] Ben has no Care Guidelines for this patient. Care History Medical/Surgical 2020 [facility] Patient admitted.\T\nbsp; Follow up scheduled 01/22/[address] Hayes 07/09/2019 [facility] - CHW RECEIVED CASE MANAGEMENT CONSULT- FOR FOLLOW UP WITH PATIENT AFTER ED DISCHARGE. - CHW PROVIDED ED NOTES TO PATIENT UROLOGIST DR HAYES. DR HAYES WILL BE CONTACTING PATIENT TODAY 07/09/19 AND SCHEDULING A FOLLOW UP APT. 07/09/2019 [facility] - Patient is currently established with [facility]. If patient is seen in the ED during business hours. Please contact CHWs at [facility]. Care Recommendation: This patient has had 5 [...] care. E.D. VISIT COUNT (12 MO.) [address] [facility] TOTAL 2 NOTE: Visits indicate total known visits. ED/UCC VISIT TRACKING (12 MO.) 11/03/2021 21:11 [facility] TYPE: Emergency COMPLAINT: - WEAKNESS 10/09/2021 20:04 [facility] TYPE: Emergency COMPLAINT: - RIGHT SIDED FACE SWELLENING, NAUSEA INPATIENT VISIT TRACKING (12 MO.) 10/09/2021 20:05 [facility] TYPE: Observation COMPLAINT: - R FACE CELLULITIS DIAGNOSES: - Hemiplegia and hemiparesis following cerebral infarction affecting right dominant side - Personal history of urinary (tract) infections - Hypothyroidism, unspecified - Allergy status to other drugs, medicaments and biological substances - Cellulitis of face - Neuromuscular dysfunction of bladder, unspecified - Type 2 diabetes mellitus with hyperglycemia - Hematuria, unspecified - long-term (current) use of oral hypoglycemic drugs [email or web address]
[2021-11-04] MEDS ORDERED: LEVOTHYROXINE175 MC1 PO (08:49)
[2021-11-04] MEDS ORDERED: GLIMEPIRIDE4 MG PO (15:33)
--- NOTE | 2021-11-04 21:19 | EKG ---
[facility] [address], [place] [address] Signed Sinus rhythm with 1st degree AV block Otherwise normal ECG When compared with ECG of 20-JAN-2020 15:33, No significant change was found Confirmed by MAXINE LAKE DO ([id number]) on 11/04/2021 9:18:53 PM Electronically Signed By: MAXINE LAKE DO 11/04/212118 PATIENT NAME: FABIENNE VELÁSQUEZ Electrocardiogram DATE OF : 52 PHYSICIAN: MAXINE LAKE DO REPORT #: [id number] REPORT IS CONFIDENTIAL AND NOT TO BE RELEASED WITHOUT AUTHORIZATION
--- NOTE | 2021-11-06 20:46 | EKG ---
[facility] [address] [place] [address] Signed Sinus bradycardia Otherwise normal ECG When compared with ECG of 03-NOV-2021 21:39, Vent. rate has decreased BY 30 BPM Confirmed by MAXINE LAKE DO ([id number]) on 11/06/2021 8:46:20 PM Electronically Signed By: MAXINE LAKE DO 11/06/212045 PATIENT NAME: DIDIERFABIENNE Electrocardiogram DATE OF : 52 PHYSICIAN: MAXINE LAKE DO REPORT #: [id number] REPORT IS CONFIDENTIAL AND NOT TO BE RELEASED WITHOUT AUTHORIZATION
[2021-11-08] MEDS ORDERED: CEFPODOXIME PR200 MG PO (10:14)
== END 2021-11-08 13:55 | disposition home or self-care (01) | DRG 698 ==
LOC: ED 21:11 → CCU 21:12 → ED 21:12 → CCU 11-04 01:43 → ED 11-04 01:43 → CCU 11-04 01:44 → MS 11-04 12:45
PROVIDERS: ADMIT Internal Medicine; ATTEND Internal Medicine
DX: T83.518A Infection and inflammatory reaction due to other urinary catheter, initial encounter (principal); A41.51 Sepsis due to Escherichia coli [E. coli]; R65.20 Severe sepsis without septic shock; N30.00 Acute cystitis without hematuria; I69.351 Hemiplegia and hemiparesis following cerebral infarction affecting right dominant side; N17.9 Acute kidney failure, unspecified; Z20.822 Contact with and (suspected) exposure to COVID-19; Y84.6 Urinary catheterization as the cause of abnormal reaction of the patient, or of later complication, without mention of misadventure at the time of the procedure; Z96.641 Presence of right artificial hip joint; N31.9 Neuromuscular dysfunction of bladder, unspecified; K21.9 Gastro-esophageal reflux disease without esophagitis; E03.9 Hypothyroidism, unspecified; E78.5 Hyperlipidemia, unspecified; D50.9 Iron deficiency anemia, unspecified; E86.1 Hypovolemia; E87.6 Hypokalemia; G47.33 Obstructive sleep apnea (adult) (pediatric); I10 Essential (primary) hypertension; E11.9 Type 2 diabetes mellitus without complications; Z98.890 Other specified postprocedural states; Z98.818 Other dental procedure status; Z88.1 Allergy status to other antibiotic agents; Z88.8 Allergy status to other drugs, medicaments and biological substances; Z79.84 Long term (current) use of oral hypoglycemic drugs; Z79.899 Other long term (current) drug therapy
CPT/HCPCS: 51702; 71045; 80048; 80053; 81001; 83605; 83735; 85025; 87040; 87088; 93005; 93010; 94760; 97116; 97162; 97530; 99285-25; C9113; C9803; G0378; J0692; J0696; J1650; J1815; J2405; J2543; J2550; J7030; J7121; U0003

== ENCOUNTER 2024-05-21 16:08 | Emergency (ER) | payer MEDICARE ==
[~2024-05-21] VITALS: Ht 195.6 cm; Wt 115.0 kg
[~2024-05-21 16:08] MED LIST changes: +CEFPODOXIME PR200 MG PO; +GLIMEPIRIDE4 MG PO; +LEVOTHYROXINE175 MC1 PO
[2024-05-21] MEDS ORDERED: GLIPIZIDE ER10 MG PO (17:15)
[2024-05-21] MEDS ORDERED: PIOGLITAZONE HC45 MG PO (17:16)
[2024-05-21] MEDS ORDERED: LEVOTHYROXINE175 MCG PO (17:16)
[2024-05-21] MEDS ORDERED: BAYER CHEWABLE81 MG PO (17:18)
[2024-05-21] MEDS ORDERED: TRULICITY0.75 MG/0. SUB-Q (17:20)
[2024-05-21 17:33] LABS: BASOPHILS 2.2 % (0-2); EOSINOPHILS 2.5 % (0-6); HEMATOCRIT 21.4 % (35.0-50.0); HEMOGLOBIN 6.4 g/dL (12.0-18.0); LYMPHOCYTES 8.6 % (24-44); MCHC 30.1 g/dl (30-36); MONOCYTES 9.3 % (0-12); NEUTROPHILS 77.4 % (39-80); PLATELET COUNT 269 K/uL (140-440); RBC 2.58 M/ul (4.3-5.7); RDW 16.7 (10.5-15.0)
[2024-05-21 17:42] LABS: ALBUMIN 2.8 g/dL (3.4-5.0); ALBUMIN/GLOBULIN RATIO 0.68 (1.1-2.4); ANION GAP 14.1 (7-21); BUN/CREATININE RATIO 13.37 (6.0-28.6); CALCIUM 8.5 mg/dL (8.5-10.1); CREATININE, SERUM 1.57 mg/dL (0.70-1.30); POTASSIUM 4.1 mmol/L (3.5-5.1); PROTEIN, TOTAL 6.9 g/dL (6.4-8.2)
[2024-05-21 18:00] LABS: ABO A; ANTIBODY SCREEN NEGATIVE; RH NEGATIVE
[2024-05-21 18:38] LABS: IS CROSSMATCH COMPATIBLE
[2024-05-22 00:55] VITALS: BP 126/60
== END 2024-05-22 00:55 | disposition home or self-care (01) ==
LOC: ED 16:08
PROVIDERS: Emergency Medicine
DX: D50.9 Iron deficiency anemia, unspecified (principal); I10 Essential (primary) hypertension; E11.9 Type 2 diabetes mellitus without complications; Z86.73 Personal history of transient ischemic attack (TIA), and cerebral infarction without residual deficits; Z96.641 Presence of right artificial hip joint; Z88.8 Allergy status to other drugs, medicaments and biological substances; Z79.82 Long term (current) use of aspirin; Z79.890 Hormone replacement therapy; Z79.899 Other long term (current) drug therapy
CPT/HCPCS: 36415; 80053; 85025; 86850; 86900; 86901; 86922

== ENCOUNTER 2025-02-11 10:05 | Inpatient (IN) | payer MEDICARE ==
[~2025-02-11] VITALS: Ht 195.6 cm; Wt 115.6 kg
[~2025-02-11 10:05] MED LIST changes: +BAYER CHEWABLE81 MG PO; +GLIPIZIDE ER10 MG PO; +LEVOTHYROXINE175 MCG PO; +PIOGLITAZONE HC45 MG PO; +TRULICITY0.75 MG/0. SUB-Q
[2025-02-11] MEDS ORDERED: DEXTROSE 50% 50 ML SYR IV ONE (10:15)
[2025-02-11 10:51] LABS: BASOPHILS 0.3 % (0-2); EOSINOPHILS 4.2 % (0-6); HEMATOCRIT 19.3 % (35.0-50.0); LYMPHOCYTES 15.4 % (24-44); MCH 24.9 (27-36); MCV 80.3 fl (81-99); MONOCYTES 12.7 % (0-12); NEUTROPHILS 67.4 % (39-80); PLATELET COUNT 111 K/uL (140-440); RDW 19.8 (10.5-15.0)
[2025-02-11 11:25] LABS: ALBUMIN 2.5 g/dL (3.4-5.0); ALBUMIN/GLOBULIN RATIO 0.74 (1.1-2.4); ANION GAP 15.3 (7-21); BILIRUBIN, TOTAL 1.5 mg/dL (0.2-1.0); BUN/CREATININE RATIO 14.43 (6.0-28.6); CALCIUM 8.5 mg/dL (8.5-10.1); CREATININE, SERUM 1.94 mg/dL (0.70-1.30); MAGNESIUM 2.1 mg/dL (1.8-2.4); POTASSIUM 4.3 mmol/L (3.5-5.1); PROTEIN, TOTAL 5.9 g/dL (6.4-8.2)
[2025-02-11 11:33] LABS: BILIRUBIN, URINE NEGATIVE (negative); BLOOD/HGB, URINE NEGATIVE (Negative); KETONE, URINE NEGATIVE (Negative); LEUK ESTERASE, URINE TRACE (negative); NITRITE, URINE POSITIVE (negative)
[2025-02-11 11:40] LABS: BACTERIA, URINE 3+ /hpf (negative); CASTS, URINE NONE SEEN \\lpf; COLLECTION TYPE, URINE CLEAN CATCH; CRYSTALS, URINE NONE SEEN (0-1+); EPITHELIAL CELLS, URINE SQUAMOUS 2+ /lpf (0-1+); RED BLOOD CELLS, URINE 0-1 /hpf (0-5); REFLEX CULTURE, URINE No (No)
[2025-02-11 12:18] LABS: ABO A; ANTIBODY SCREEN NEGATIVE; RH NEGATIVE
[2025-02-11 12:57] LABS: IS CROSSMATCH COMPATIBLE
[2025-02-11] MEDS ORDERED: PANTOPRAZOLE SODIUM 40 MG/10 ML VIAL IV SCH (13:05)
[2025-02-11] MEDS ORDERED: LACTATED RINGER'S 1,000 ML IV SCH (13:15)
[2025-02-11] MEDS ORDERED: ondansetron HCL 4 MG/2 ML VIAL IV PRN (13:15)
[2025-02-11] MEDS ORDERED: DEXTROSE 50% 50 ML SYR IV PRN ×2 (13:15)
[2025-02-11] MEDS ORDERED: IBLOOD GLUCOSE TEST STRIP 1 EA TEST XX PRN (13:15)
[2025-02-11] MEDS ORDERED: ACETAMINOPHEN 325 MG TAB PO PRN (13:15)
[2025-02-11] MEDS ORDERED: GLUCAGON,HUMAN RECOMBINANT 1 MG/ML VIAL SUB-Q PRN (13:15)
[2025-02-11] MEDS ORDERED: DEXTROSE 5% 1,000 ML IV PRN (13:15)
--- NOTE | 2025-02-11 13:47 | EKG ---
[facility] [address] [place] [address] Signed Junctional rhythm Low voltage QRS Abnormal ECG When compared with ECG of 06-NOV-2021 16:06, Junctional rhythm has replaced Sinus rhythm Nonspecific T wave abnormality has replaced inverted T waves in Inferior leads Confirmed by Dillon Tse DO ([id number]) on 02/11/2025 1:46:58 PM Electronically Signed By: DILLON TSE DO 02/11/25 1347 PATIENT NAME: DIDIERFABIENNE THIAGO Electrocardiogram DATE OF : 52 PHYSICIAN: DILLON TSE DO REPORT #: [id number] REPORT IS CONFIDENTIAL AND NOT TO BE RELEASED WITHOUT AUTHORIZATION
[2025-02-11 14:17] VITALS: BP 105/53
[2025-02-11] MEDS ORDERED: LEVOTHYROXINE175 MCG PO (14:35)
--- NOTE | 2025-02-11 15:07 | NUR ---
THIS RN TO ER, BEDSIDE REPORT RECEIVED FROM SADIE MELLO AT 1400. THIS RN ESCORTS PT FROM ER TO MED-SURG ROOM 110 VIA GURNEY. PT ARRIVES AT 1410. PT TRANSFERRED TO BED VIA SLIDE SHEET, TOLERATES THIS WELL. VSS. PT ORIENTED TO ROOM, CALL LIGHT PHONE AND BED. BED RAILS UP X4, BED LOCKED IN LOW POSITION, CALL LIGHT IN REACH. BLOOD TRANSFUSION CONTINUES. ADMISSION ASSESSMENT COMPLETE. FAMILY AT BEDSIDE. SCD'S TO BLE. ICE WATER PROVIDED. NO FURTHER REQUEST AT THIS TIME.
--- NOTE | 2025-02-11 15:56 | NUR ---
PATIENT GIVEN IV PROTONIX. CALL TO DR. DOBSON TO ADDRESS PATIENT'S URINARY SELF CATH NEEDS. DISCUSSED WITH PATIENT AND FAMILY TO HAVE NURSE STRAIGHT CATH PATIENT Q4H.
--- NOTE | 2025-02-11 15:56 | NUR ---
MED REC COMPLETE
[2025-02-11] MEDS ORDERED: LIDOCAINE 2% VISCOUS 6 ML SYR TOP ONE ×2 (16:00→18:45)
[2025-02-11 16:30] LABS: BILIRUBIN, URINE NEGATIVE (negative); BLOOD/HGB, URINE TRACE-I (Negative); KETONE, URINE NEGATIVE (Negative); LEUK ESTERASE, URINE SMALL (negative); NITRITE, URINE POSITIVE (negative)
--- NOTE | 2025-02-11 16:46 | NUR ---
FIRST UNIT OF PRBS COMPLETE. PT TOLERATED THIS WELL. SECOND UNIT OF PRBS STARTED. PT RESTS IN BED, RESP EVEN AND UNLABORED. SCDS IN PLACE TO BLE. PT DENIES PAIN OR DISCOMFORT AT THIS TIME. RESPONDS, "YES" WHEN ASKED IF HE IS FEELING BETTER SINCE RECEIVED THE FIRST UNIT OF BLOOD. AT BEDSIDE.
[2025-02-11] MEDS ORDERED: IBLOOD GLUCOSE TEST STRIP 1 EA TEST VI SCH (17:00)
[2025-02-11] MEDS ORDERED: ATORVASTATIN 20 MG TAB PO SCH (17:00)
[2025-02-11] MEDS ORDERED: INSULIN LISPRO 100 UNIT/ML ML SUB-Q SCH (17:00)
[2025-02-11 17:09] LABS: BACTERIA, URINE 2+ /hpf (negative); CASTS, URINE NONE SEEN \\lpf; COLLECTION TYPE, URINE CLEAN CATCH; CRYSTALS, URINE NONE SEEN (0-1+); EPITHELIAL CELLS, URINE SQUAMOUS 1+ /lpf (0-1+); RED BLOOD CELLS, URINE 0-1 /hpf (0-5); REFLEX CULTURE, URINE Yes (No)
--- NOTE | 2025-02-11 17:44 | NUR ---
PT SITS UP IN BED, FEEDS SELF DINNER. CALL LIGHT IN REACH. NO REQUESTS AT THIS TIME.
[2025-02-11] MEDS ORDERED: FUROSEMIDE 40 MG/4 ML VIAL IV STA (18:17)
[2025-02-11 18:24] VITALS: BP 115/44
--- NOTE | 2025-02-11 19:06 | NUR ---
MACHUCA CATHETER INSERTED VIA STERILE TECHNIQUE, SILICONE 14 FR PLACED AFTER FAILED ATTEMPT WITH 16 FR THAT MET RESISTANCE. URINE RETURN NOTED, BALLOON FILLED WITH 10 CC AND SEEDED. CATHETER SECURED TO RLE. PT TOLERATED WELL. NOTED DARK YELLOW CLOUDY URINE DRAINING TO GRAVITY.
--- NOTE | 2025-02-11 19:15 | NUR ---
REPORT RECEIVED FROM DAY SHIFT RN. PT LYING IN BED ALERT AND ORIENTED. DENIES NEEDS. WHITE BOARD UPDATED. CALL LIGHT IN REACH.
--- NOTE | 2025-02-11 19:30 | NUR ---
REPORT RECEIVED FROM DAY SHIFT RN. PT LYING IN BED ALERT AND ORIENTED. DENIES NEEDS. WHITE BOARD UPDATED. CALL LIGHT IN REACH.
--- NOTE | 2025-02-11 19:57 | NUR ---
BLOOD TRANSFUSION COMPLETE. VS OBTAINED, WNL. NO TRANSFUSION REACTION NOTED. PT SL PER ORDER.
[2025-02-11 20:37] VITALS: BP 121/60
[2025-02-11 20:38] VITALS: BP 121/60
[2025-02-11] MEDS ORDERED: NITROFURANTOIN MONOHYD MACROCR 100 MG CAP PO SCH (21:00)
[2025-02-11] MEDS ORDERED: MELATONIN 3 MG TAB PO PRN (21:00)
--- NOTE | 2025-02-11 21:05 | NUR ---
EVENING ASSESSMENT COMPLETE. SCHEDULED MEDS ADMIN PER EMAR. PT DENIES PAIN OR NAUSEA. DENIES SOB AT REST. LUNGS CLEAR, DIM IN BASES. SpO2 100% ON RA. MACHUCA PATENT WITH QS CLEAR YELLOW URINE. EDEMA IN UPPER AND LOWER EXTREMITIES NOTED. SCD'S IN PLACE. PT DENIES QUESTIONS OR CONCERNS. CALL LIGHT IN REACH.
[2025-02-12] VITALS (10 sets, daily range): BP systolic 104–148; BP diastolic 50–69
--- NOTE | 2025-02-12 00:33 | NUR ---
2PA TO BED ALEXIS TO ATTEMPT BM WITH NO RESULTS. PT REPORTS PASSED A "LOT OF GAS." VS AND I&O OBTAINED. ASSISTED PT TO TURN TO LEFT SIDE WITH PILLOWS. NO FURTHER NEEDS. CALL LIGHT IN REACH.
--- NOTE | 2025-02-12 02:31 | NUR ---
PT RESTING IN BED WITH EYES CLOSED. RESPIRATIONS EVEN. CALL LIGHT IN REACH.
--- NOTE | 2025-02-12 04:00 | NUR ---
PT REPOSITIONED SELF IN BED. EYES CLOSED. RESPIRATIONS EVEN. CALL LIGHT IN REACH.
[2025-02-12 05:44] LABS: HEMATOCRIT 21.9 % (35.0-50.0); HEMOGLOBIN 7.2 g/dL (12.0-18.0); LYMPHOCYTES 20.8 % (24-44); MCH 26.3 (27-36); MCHC 32.8 g/dl (30-36); MCV 80.1 fl (81-99); MONOCYTES 12.3 % (0-12); NEUTROPHILS 61.9 % (39-80); PLATELET COUNT 93 K/uL (140-440); RBC 2.74 M/ul (4.3-5.7)
--- NOTE | 2025-02-12 05:50 | NUR ---
VS AND I&O OBTAINED. ASSISTED PT TO REPOSITION IN BED TO RIGHT SIDE WITH PILLOWS. BED WEIGHT OBTAINED. PT DENIES NEEDS. CALL LIGHT IN REACH.
[2025-02-12 05:55] LABS: ANION GAP 11.6 (7-21); BUN/CREATININE RATIO 14.57 (6.0-28.6); CALCIUM 8.3 mg/dL (8.5-10.1); CREATININE, SERUM 1.99 mg/dL (0.70-1.30); POTASSIUM 3.6 mmol/L (3.5-5.1)
[2025-02-12] MEDS ORDERED: LEVOTHYROXINE SODIUM 175 MCG TAB PO SCH ×2 (06:00→09:00)
--- NOTE | 2025-02-12 06:41 | NUR ---
BLOOD GLUCOSE WITH MORNING LABS 57. JUICE PROVIDED. BLOOD SUGAR RECHECK 84.
--- NOTE | 2025-02-12 07:49 | NUR ---
RECEIVED REPORT FROM NIGHT RN. PT RESTING UPON ENTERING ROOM, DID NOT AWAKEN, RESPIRATIONS UNLABORED. SCDS IN PLACE. CALL LIGHT WITHIN REACH, WILL CONTINUE TO MONITOR.
--- NOTE | 2025-02-12 08:37 | NUR ---
Hourly rounding. Board has been updated. Patient reports regan but feeling cold. I took patient temp, 98.0 was the temp. Patient reports that this effect is not something new. Charge nurse has been alerted. No request from patient at this time.
[2025-02-12] MEDS ORDERED: NITROFURANTOIN MONOHYD MACROCR 100 MG CAP PO SCH (09:00)
[2025-02-12] MEDS ORDERED: PANTOPRAZOLE SODIUM 40 MG TABEC PO SCH (09:00)
--- NOTE | 2025-02-12 09:06 | NUR ---
UR CLINICAL REVIEW: 2 MN FOR VERSALUS-PER PASTEURIZER HELPER MEETS INPT FOR ANEMIA WITH NEED TO TRANSFUSE/MONITOR [facility] MEDICARE INPT 02/11/25 @ 1317 ORDER MATCHES REG CLINICALS SENT TO [facility] FOR AUTH REVIEW DISCHARGE TO HOME WHEN STABLE.
--- NOTE | 2025-02-12 10:07 | NUR ---
ALERT AND ORIENTED IN BED. STATES HE LIVES AT HOME WITH IS , PAULY. THEY HAVE 2 STEPS TO GET INTO THE HOUSE, BUT IS A SINGLE LEVEL HOME. PATIENT HAS A CANE AND WALKER AT HOME. HE USES A WALKER AT BASELINE. HE NO LONGER DRIVES DUE TO POOR VISION. HIS WIVE, PAULY, ASSISTS HIM WITH TRANSPORTATION. PATIENT STATES HE AND HAVE NO DIFFICULTY PAYING ULTILITIES OR GETTING FOOD OR MEDICATIONS. INFORMED DC PLAN IS PENDING FURTHER TREATMENT AND EVALUATION BY THERAPIES. STATES HE HAS PREVIOUSLY BEEN TO [facility] FOR REHAB AND IS AGREEABLETO SNF IF IT IS NEEDED.
[2025-02-12] MEDS ORDERED: POTASSIUM CHLORIDE 10 MEQ TABCR PO ONE (10:15)
[2025-02-12] MEDS ORDERED: methylPREDNISolone SOD SUCC 40 MG/ML VIAL IV SCH (10:15)
[2025-02-12] MEDS ORDERED: FUROSEMIDE 40 MG/4 ML VIAL IV ONE (10:15)
--- NOTE | 2025-02-12 10:19 | NUR ---
PT NOT AVAILABLE FOR VISIT. PROVIDED PRAYER.
[2025-02-12] MEDS ORDERED: POLYETHYLENE GLYCOL 3350 BOTTLE PO ONE (10:30)
[2025-02-12] MEDS ORDERED: PHARMACY RENAL DOSE ADJUSTMENT 1 DOSE MISC PO SCH (12:00)
--- NOTE | 2025-02-12 13:43 | NUR ---
PATIENT IN BED AT THIS TIME. THIS SOUND EDITOR AND SADIE CAT MOVED PATIENT FROM CHAIR TO BED VIA MIKHAIL. PATIENTS CALL LIGHT WITHIN REACH, NO FURTHER NEEDS AT THIS TIME.
--- NOTE | 2025-02-12 13:44 | NUR ---
PT/OT RECOMMENDING SNF. PATIENT CHOICES PROVIDED TO PATIENT FOR SNF. WOULD PREFER TO STAY IN [place] IF POSSIBLE BECAUSE HIS IS IN [place]. STATES HE WOULD LIKE HIS TO HAVE INPUT ABOUT WHICH FACILITY HE GOES TO. CALLED AND SPOKE WITH PAULY. STATES SHE PREFERS HE STAY IN [place] AND GO TO [place] IF POSSIBLE, AFTER PATIENT CHOICES OF FACILITIES REVIEWED. WILL SEND REFERRAL TO [facility].
--- NOTE | 2025-02-12 13:48 | NUR ---
REFERRAL FOR SNF SENT TO [facility]
--- NOTE | 2025-02-12 15:04 | NUR ---
Hourly rounding. patient appears to be in a good mood, no request. Jag has been eptied and has been documented on the board
--- NOTE | 2025-02-12 18:20 | NUR ---
PT IN ROOM, VISITING WITH FAMILY. PT HAS HAD A SMALL SMEAR, COMPLETED BOWEL PREP ABOUT 1.5HRS AGO. MD NOTIFIED, HE WOULD LIKE MAGNESIUM CITRATE X1 ORDERED WELL. ORDERS INPUT.
[2025-02-12 18:24] LABS: HEMATOCRIT 23.4 % (35.0-50.0); HEMOGLOBIN 7.6 g/dL (12.0-18.0); MCV 80.9 fl (81-99); RBC 2.89 M/ul (4.3-5.7)
[2025-02-12 18:28] LABS: BASOPHILS 0.3 % (0-2); LYMPHOCYTES 9.8 % (24-44); MCH 26.3 (27-36); MCHC 32.5 g/dl (30-36); MONOCYTES 3.7 % (0-12); NEUTROPHILS 86.2 % (39-80); PLATELET COUNT 97 K/uL (140-440); RDW 18.8 (10.5-15.0)
[2025-02-12] MEDS ORDERED: MAGNESIUM CITRATE 300 ML BTL PO ONE (18:30)
--- NOTE | 2025-02-12 19:05 | NUR ---
REPORT RECEIVED FROM MT NOEL. pt RESTING IN THE BED. BOARD UPDATED. pt DENIES ANY OTHER NEEDS AT THIS TIME. CALL LIGHT WITHIN REACH.
[2025-02-12 19:36] LABS: FERRITIN 11 ng/mL (31-409)
[2025-02-12 19:57] LABS: IRON BINDING CAPACITY TOTAL 315 ug/dL (240-450); IRON,SERUM OR PLASMA 23 ug/dL (45-182); TRANSFERRIN SATURATION 7 %sat (20-50)
--- NOTE | 2025-02-12 20:00 | NUR ---
SCHEDULED MEDS ADMINISTERED. pt CHANGED FOR A LIQUID BM X1. ASSESSMENT AND VITAL SIGNS DONE. 1+ PITTING EDEMA IN RIGHT ARM. NO EDEMA IN ANY OTHER EXTREMITY. SCD'S ON. IV ASSESSED, WNL. pt RESTING IN THE BED. WATER REFRESHED. pt DENIES ANY OTHER NEEDS AT THIS TIME. pt PLACED ON BED ALEXIS.
[2025-02-12 20:02] LABS: TRANSFERRIN 265 mg/dL (200-360)
[2025-02-12 20:08] LABS: THYROXINE FREE 1.1 ng/dL (0.9-1.7)
--- NOTE | 2025-02-12 20:17 | CONS ---
[facility] [address], [place] [address] Signed DATE OF CONSULTATION: 02/12/2025 CHIEF COMPLAINT: Anemia. 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 He still lives with his here in town. He decided recently to quit driving. He said he had a pretty good stroke a number of years ago when Dr. Santiago was his primary care provider. When Dr. Santiago was his primary care provider, it affected his right arm. He has a number of other medical issues as well. He remains as a full code mainly because of his 's wishes. He came in April of last year because he was so anemic that he needed 2 units of packed red blood cells through the ER. Once again, he was feeling short of breath and weak and having increased edema in his legs. He intermittently has some blood associated with bowel movements. He cannot recall ever having peptic ulcer disease. He came back into the emergency room and sure enough he is anemic again with a hemoglobin of 6. He had guaiac positive stool. No melena. He has no upper or lower GI complaints. Chest x-ray showed possible right lower lobe aspiration. CT scan of the abdomen and pelvis showed some inflammation of the cecum, right colon along with enlarged bilateral inguinal lymph nodes with some anasarca and of course he has a small right pleural effusion and then he does have a 9 mm stone in his left ureter but is not obstructing and it looks like he has a 3 mm stone at the right UVJ and it is not obstructing and he also has some stones up in the kidneys as well. He also has a bladder diverticulum and some stones in his bladder as well. He has to do self catheterization since 2013. He has recurrent urinary tract infections and apparently follows with a specialist down in [place]. He was admitted to the Internal Medicine service. He has received a couple units of packed red blood cells. I was asked to see him as a local general surgeon for consideration of upper and lower endoscopy because of the anemia, but also because the inflammation in the right colon. He seems to be doing quite well and he is watching TV and he is just now getting the MiraLAX at the bedside. PAST MEDICAL HISTORY: Type 2 diabetes, hyperlipidemia, hypertension, hypothyroidism, peptic ulcer disease. He denies IV drug abuse, recurrent urinary tract infections and urinary retention requiring self catheterization since 2013. He has a bladder diverticulum with stones in the urinary bladder. He has stones in his kidneys and he has a stone in each ureter. He has a history of anemia. He had a fairly significant stroke affecting his right side back in 2008. He has some venous stasis disease. PAST SURGICAL HISTORY: Includes an EGD and colonoscopy many years ago at our [facility] probably in his early 50s with Dr. Greenwood, tonsillectomy, adenectomy, right total hip replacement and cystoscopy in 2013. Electronically Signed By: KELLIE GAN MD 02/12/252016 PATIENT NAME: FABIENNE VELÁSQUEZ CONSULTATION DATE OF : 52 REPORT #: [id number] PHYSICIAN: KELLIE GAN MD PCP: CARLOS LUNA DO REPORT IS CONFIDENTIAL AND NOT TO BE RELEASED WITHOUT AUTHORIZATION [facility] [address] [place] [id number] Signed SOCIAL HISTORY: He said he never smoked. He drank a little when he was younger. No IV drug abuse. It looks like he has a urologist in [place]. He is a full code. Dr. Carlos Luna is his primary care provider. He lives with his , Candelario in the house. He does not drive in the last few weeks. 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 FAMILY HISTORY: He denies any family history of colon cancer, colon polyps or inflammatory bowel disease. REVIEW OF SYSTEMS: He had 10 systems reviewed and he filled in quite a bit of detail as reviewed above. ALLERGIES: Clonazepam. MEDICATIONS: 1. Macrobid. 2. Synthroid. 3. Lipitor. 4. Protonix. 5. Glipizide. 6. Glimepiride. 7. Trulicity. 8. Atenolol. 9. Aspirin. 10. Pioglitazone. 11. Vitamin C. 12. Vitamin D. 13. Vitamin B. 14. Potassium chloride. PHYSICAL EXAMINATION: VITAL SIGNS: His blood pressure is 140/69, his heart rate is 66, respiratory rate is 18, temperature is 98.4, he is 98% on room air. He is 6 feet 5 inches tall, 113 kg with a body mass index of 29. GENERAL: Fabienne is a 75-year-old gentleman, lying supine in his hospital bed, watching TV. He has almost a sense of jaundice to him and he looks much older than his stated age, although his memory is actually very good, can tell his right arm is not particularly helpful. LUNGS: Clear to auscultation bilaterally. HEART: Regular rate and rhythm without murmurs. ABDOMEN: Soft, flat, nontender. He has no masses. He has a urine catheter in place. EXTREMITIES: He has mild to moderate lower extremity edema, also little bit in his Electronically Signed By: KELLIE GAN MD 02/12/252016 PATIENT NAME: FABIENNE VELÁSQUEZ CONSULTATION DATE OF : 52 REPORT #: [id number] PHYSICIAN: KELLIE GAN MD PCP: CARLOS LUNA DO REPORT IS CONFIDENTIAL AND NOT TO BE RELEASED WITHOUT AUTHORIZATION [facility] [address], [place] [address] Signed hands. LABORATORY DATA: His white blood count is 4.9, hemoglobin 7.2, mean cell volume is 80, neutrophils 61, platelets 93, BUN 29, creatinine 1.99. Blood sugars are 72 to 98. BNP is 928. TSH is 54. Urinalysis showed white blood cells, nitrite and bacteria. Urine culture is pending. Hepatitis C pending. HIV pending. SPEP pending RADIOGRAPHIC STUDIES: Chest x-ray shows maybe some right lower lobe aspiration versus pneumonia, although it is probably his pleural effusion. CT scan of abdomen and pelvis shows the small right pleural effusion, right-sided inflammation of the cecum and colon. The 9 mm nonobstructing stone in the left ureter and the 3 mm nonobstructing stone at the right UVJ. He has bilateral inguinal lymph nodes, which were probably reactive and he has some anasarca. ASSESSMENT AND PLAN: Fabienne is a 75-year-old gentleman with rather significant past medical history. Once again, he is anemic and he has some inflammation to the cecum and right colon. He has not had upper and lower endoscopy in many years. He said he has been referred but because of his health has been poor and his activity level has been poor, he has never made it out of the house to go and have any repeat endoscopies. I reviewed with him upper and lower endoscopy along with the risks and benefits. We discussed the need for monitored anesthesia care given his age and medical issues. He said he would like to proceed with the two procedures. We will go ahead and add him on tomorrow. I have encouraged him to start the bowel prep immediately now that has been brought to his bedside about 30 minutes ago. He said he is more than happy to do that. Kellie Gan MD ALB/MODL /[id number] cc: DO Kellie Billings MD Electronically Signed By: KELLIE GAN MD 02/12/252016 PATIENT NAME: FABIENNE VELÁSQUEZ CONSULTATION DATE OF : 52 REPORT #: [id number] PHYSICIAN: KELLIE GAN MD PCP: CARLOS LUNA DO REPORT IS CONFIDENTIAL AND NOT TO BE RELEASED WITHOUT AUTHORIZATION [facility] [address] [place] [address] [place], [place] [address] Signed Copies: CARLOS LUNA ANDREW L MD ~ Electronically Signed By: KELLIE GAN MD 02/12/252016 PATIENT NAME: FABIENNE VELÁSQUEZ CONSULTATION DATE OF : 52 REPORT #: [id number] PHYSICIAN: KELLIE GAN MD PCP: CARLOS LUNA DO REPORT IS CONFIDENTIAL AND NOT TO BE RELEASED WITHOUT AUTHORIZATION
--- NOTE | 2025-02-12 20:50 | NUR ---
pt TAKEN OFF BED ALEXIS. NO BLOOD IN STOOL NOTED. SCHEDULED MEDS ADMINISTERED. BG CHECKED WITH A RESULTS OF 212. SS INSULIN HELD DUE TO pt HAVING TROUBLES WITH HYPOGLYCEMIA. MD AWARE. pt CLEANED UP AND RESTING. NO OTHER NEEDS AT THIS TIME. CALL LIGHT WITHIN REACH. CALL LIGHT WITHIN REACH.
--- NOTE | 2025-02-12 20:53 | NUR ---
dr quiroga called, hs accucheck result of 212-per emar pt to get 3 units insulin ss-per dr quiroga okay to hold tonight's dose as pt is npo at midnight w/ hx of low sugars in the mornings. primary rn updated and aware. dr quiroga also updated on most recent h&h results per md request-no new orders received.
--- NOTE | 2025-02-12 22:55 | NUR ---
PT STATED THAT HE HAD A BM. CERTIFIED LOW VISION THERAPIST AND RN CHANGED PT CHUCKS PAD AND BREIF. PT PLACED ON BED ALEXIS AND INSTRUCTED TO CALL WHEN READY. CALL LIGHT WITHIN REACH.
--- NOTE | 2025-02-12 23:33 | NUR ---
VERTICAL ROLL OPERATOR AND RN REMOVED BEDPAN. PT HAD LARGE BM. PT CHUCKS AND BREIF CHANGED. PT STATES NO FURTHER NEEDS AT THIS TIME. CALL LIGHT WITHIN REACH.
[2025-02-13] VITALS (13 sets, daily range): BP systolic 106–128; BP diastolic 49–60
--- NOTE | 2025-02-13 02:40 | NUR ---
CALL LIGHT ANSWERED. PT HAD BM. SOFTWARE DESIGN ENGINEER AND RN CHANGED PT BREIF AND MATILDA PAD. PT STATES NO FURTHER NEEDS AT THIS TIME. CALL LIGHT WITHIN REACH.
[2025-02-13 03:33] LABS: FOLATE,SERUM 14.5 ng/mL (>=5.9)
--- NOTE | 2025-02-13 04:41 | NUR ---
pt RESTING IN THE BED WITH EYE CLOSED. RR EVEN AND UNLABORED. CALL LIGHT WITHIN REACH.
[2025-02-13 05:32] LABS: BASOPHILS 0.4 % (0-2); EOSINOPHILS 0.2 % (0-6); HEMATOCRIT 21.7 % (35.0-50.0); HEMOGLOBIN 7.1 g/dL (12.0-18.0); LYMPHOCYTES 16.4 % (24-44); MCH 26.4 (27-36); MCHC 32.9 g/dl (30-36); MCV 80.2 fl (81-99); MONOCYTES 10.5 % (0-12); NEUTROPHILS 72.5 % (39-80); PLATELET COUNT 97 K/uL (140-440); RBC 2.71 M/ul (4.3-5.7); RDW 19.4 (10.5-15.0)
[2025-02-13 05:51] LABS: ALBUMIN 2.2 g/dL (3.4-5.0); ALBUMIN/GLOBULIN RATIO 0.71 (1.1-2.4); ANION GAP 13.7 (7-21); BILIRUBIN, TOTAL 1.6 mg/dL (0.2-1.0); BUN/CREATININE RATIO 15.46 (6.0-28.6); CREATININE, SERUM 1.94 mg/dL (0.70-1.30); MAGNESIUM 2.6 mg/dL (1.8-2.4); POTASSIUM 3.7 mmol/L (3.5-5.1); PROTEIN, TOTAL 5.3 g/dL (6.4-8.2)
--- NOTE | 2025-02-13 06:00 | NUR ---
pt CALLED TO BE CHANGED. LRG LIQUID BM CHANGED. pt DENIES ANY OTHER NEEDS AT THIS TIME. CALL LIGHT WITHIN REACH.
--- NOTE | 2025-02-13 06:45 | NUR ---
CALL LIGHT ANSWERED. PT HAD BM. PAINT ROLLER COVER MACHINE SETTER AND RN CHANGED PT CHUCKS PAD AND BRIEF. PT STATES NO FURTHER NEEDS AT THIS TIME. CALL LIGHT WITHIN REACH.
--- NOTE | 2025-02-13 07:02 | NUR ---
REPORT RECEIVED FROM IRON WORKER APPRENTICE SADIE KATE. PATIENT IS LYING IN BED WITH EYES CLOSED AND RESPIRATIONS ARE EVEN AND UNLABORED. CALL LIGHT AND PERSONAL BELONGINGS ARE WITHIN REACH.
--- NOTE | 2025-02-13 08:06 | NUR ---
NO MEDICATIONS ADMINISTERED AT THIS TIME. FULL ASSESSMENT COMPLETE AND DOCUMENTED IN THE CHART. PATIENT IS ALERT AND ORIENTED TIMES FOUR. PATIENT WITH SCD'S IN PLACE. PATIENT IS A MIKHAIL LIFT WITH TRANSFERS. PATIENT IS NPO AT THIS TIME. BOWEL TONES ARE ACTIVE IN ALL FOUR QUADRANTS. PATIENT IS ON ROOM AIR AND LUNG SOUNDS ARE CLEAR BILATERALLY. CARDIAC WITH NORMAL S1 AND S2 ON AUSCULTATION. 2+ PITTING EDEMA NOTED TO THE BLE WITH 1+ PITTING EDEMA NOTED TO THE RIGHT ELBOW. RIGHT HAND IS ELEVATED ON A PILLOW. CAPILLARY REFILL IN THE UPPER AND LOWER EXTREMITIES IS LESS THAN 3 SECONDS BILATERALLY. RADIAL AND PEDAL PULSES ARE STRONG BILATERALLY. PATIENT WITH NO COMPLAINTS OF PAIN OR NAUSEA. SKIN WITH SCATTERED BRUISING, REDNESS TO CLAYTON AREA, AND DRY/PEELING TO BILATERAL FEET. NIO FOR DESENEX ORDER AT THIS TIME. IV SITE FLUSHED WITH 10 ML NORMAL SALINE AND IS SALINE LOCKED. IV DRESSING IS CLEAN, DRY, AND INTACT. PATIENT WITH RIGHT SIDED WEAKNESS AND R SIDED NUMBNESS AT BASELINE FROM PREVIOUS CVA. PATIENT WITH A CHRONIC MACHUCA CATHETER. PATIENT STATED NO FURTHER NEEDS AT THIS TIME. CALL LIGHT AND PERSONAL BELONGINGS ARE WITHIN REACH.
--- NOTE | 2025-02-13 08:36 | NUR ---
MOLD REPAIRER ASSISTED DAVIN NELSON WITH A BREIF CHANGE, CHANGED CHUCKS, BREIF TWICE, AND NEW DRAW SHEET. GOT PATIENT READJUSTED AND PULLED UP IN BED. CALL LIGHT WITH IN REACH AND NOTHING ELSE NEEDED AT THIS TIME.
[2025-02-13] MEDS ORDERED: MICONAZOLE NITRATE 1 EA BTL TOP SCH (09:00)
--- NOTE | 2025-02-13 09:20 | NUR ---
PATIENT IS LYING IN BED AND BEING CHANGED BY DAVIN NELSON AND DAVIN FONSECA. LESLIE STATED THAT VITAL SIGNS AND INTAKE AND OUTPUT COMPLETE. PATIENT STATED NO FURTHER NEEDS AT THIS TIME. CALL LIGHT AND PERSONAL BELONGINGS ARE WITHIN REACH.
--- NOTE | 2025-02-13 09:30 | NUR ---
PATIENT WAS IN BED AT THIS TIME, DAVIN () AND DAVIN NELSON ASSISTED PATIENT IN A TOTAL OF 3 BED CHANGES AT THIS TIME. WE GOT THE PATIENT CLEANED UP, THEN HAD TO CHANGE HIM AGAIN, THEN REALIZED WE NEEDE A FULL BED CHANGE AND BREIF CHANGE AGAIN. BUT WE FINALLY GOT HIM ALL CLEANED UP RIGHT BEFORE HIS PROCEDURE. GOT HIM TRANSFERED OVER TO THE OTHER BED FOR SURGERY BY MIKHAIL. THEN DAVIN NELSON AND I DID ANOTHER FULL BED CHANGE SO IT WAS ALL CLEAN AND READY FOR HIM WHEN HE GETS BACK.
[2025-02-13] MEDS ORDERED: LACTATED RINGER'S 500 ML IV ONE (09:49)
--- NOTE | 2025-02-13 09:49 | NUR ---
PATIENT LEFT AT THIS TIME FOR PROCEDURE.
[2025-02-13] MEDS ORDERED: propofoL 200 MG/20 ML VIAL ONE ×2 (10:13→10:53)
[2025-02-13] MEDS ORDERED: LIDOCAINE HCL 2% 5 ML SDV ONE (10:21)
--- NOTE | 2025-02-13 10:26 | NUR ---
PATIENT REMAINS OFF THE FLOOR AT THIS TIME.
[2025-02-13] MEDS ORDERED: ePHEDrine sulfate 50 MG/ML AMP ONE (10:51)
--- NOTE | 2025-02-13 10:54 | NUR ---
ATTEMPTED TO SEE PATIENT. PATIENT PAINFUL AND REQUESTS I COME BACK AT A LATER TIME. WILL CHECK IN LATER TODAY.
[2025-02-13] MEDS ORDERED: PHENYLEPHRINE HCL 10 MG/ML VIAL ONE (11:00)
--- NOTE | 2025-02-13 11:07 | NUR ---
PATIENT REMAINS OFF THE FLOOR AT THIS TIME.
[2025-02-13] MEDS ORDERED: POLYETHYLENE GLYCOL 3350 BOTTLE PO ONE (11:30)
--- NOTE | 2025-02-13 11:30 | NUR ---
02/13/25 1130 Audrey Brandt 1117-PATIENT ARRIVED TO PACU ON 2L NC RR EVEN ORAL AIRWAY IN PLACE NONAROUSABLE. PATIENT LAYING LEFT LATERAL. IVF INFUSING. IV IS POSITIONAL. SR. ABDOMEN SOFT.
[2025-02-13] MEDS ORDERED: ferumoxytoL 510 MG in SODIUM CHLORIDE 0.9% 100 ML IV ONE (12:00)
--- NOTE | 2025-02-13 12:10 | NUR ---
REPORT RECEIED FROM SADIE KNOX FROM PACU/OR/DAY-SURGERY. VITAL SIGNS TAKEN AND CHARTED BY SADIE FONSECA. IV FLUSHED BY THIS RN. IV FLUSHED WITH 10 ML NORMAL SALINE AND IS SALINE LOCKED. IV DRESSING IS CLEAN, DRY, AND INTACT. PATIENT WITH NO COMPLAINTS OF PAIN OR NAUSEA. PATIENT STATED NO FURTHER NEEDS AT THIS TIME. CALL LIGHT AND PERSONAL BELONGINGS ARE WITHIN REACH. CPOX AT BEDSIDE.
--- NOTE | 2025-02-13 12:21 | NUR ---
PATIENT JUST GOT BQACK FROM HIS PROCEDURE, DIRECTOR OF ARCHITECTURE ASSISTED WITH MOVING THE PATIENT BACK TO BED. CHARTED VITALS AND BLOODSUGAR AND ADJUSTED PATIENT. CALL LIGHT WITH IN REACH AND NOTHING ELSE NEEDED AT THIS TIME.
--- NOTE | 2025-02-13 12:45 | NUR ---
PATIENT MEDICATED PER EMAR. CLAYTON AREA CLEANED WITH WET WIPES, DRIED WITH DRY WIPES, AND DESENEX POWDER APPLIED TO REDDENED AREA. PATIENT DENIES ANY FURTHER NEEDS AT THIS TIME. CALL LIGHT AND PERSONAL BELONGINGS WITHIN REACH.
--- NOTE | 2025-02-13 13:05 | NUR ---
PATIENT SITTING UP EATING LUNCH AT THIS TIME. CALL LIGHT AND PERSONAL BELONGINGS WITHIN REACH.
--- NOTE | 2025-02-13 13:45 | NUR ---
INTO SEE PATIENT. PATIENT EATING AND JUST GOT BACK FROM A SCOPE. PATIENT STILL AGREEABLE TO SNF. WAITING TO HEAR BACK FROM [facility]. NO CM NEEDS AT THIS TIME.
--- NOTE | 2025-02-13 13:59 | OR ---
[facility] [address] [place], [place] [address] Signed DATE OF OPERATION: 02/13/2025 SURGEON: Kellie Gan MD PREOPERATIVE DIAGNOSES: 1. Chronic anemia. 2. Intermittent blood associated with bowel movements. 3. Guaiac-positive stool. 4. Right-sided colitis. 5. Gastroesophageal reflux disease. POSTOPERATIVE DIAGNOSES: 1. Gastroparesis. 2. Moderate left-sided diverticulosis. 3. 7 mm polyp at 7 cm in rectum. 4. Long redundant colon. 5. Moderate circumferential external hemorrhoids. PROCEDURES: 1. Esophagogastroduodenoscopy with CLOtest and biopsy of the antrum. 2. Colonoscopy with snare polypectomy. ESTIMATED BLOOD LOSS: None. INDICATIONS: Fabienne is a 75-year-old obese diabetic gentleman, who suffered a rather significant stroke back in 2008. It has affected his right arm and leg. 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 He is known to have chronic anemia for years. His last upper and lower endoscopy were [facility] 2000 at age of 51 [facility]. Those records are no longer available. He has been encouraged to repeat the upper and lower endoscopy by his primary care provider. He said going through the bowel prep at home would be quite treacherous. He said it would be quite ordeal on him and his . He was supposed to come see me last fall in the office, but never followed through. He has been in the hospital now twice because of symptomatic anemia with shortness of breath and dyspnea on exertion and weakness. He has received a couple of units of packed red blood cells in April 2024 and again on this admission. He also had developed some increasing edema in his lower extremities. His family brought him to the emergency room for evaluation. He was found to be anemic once again with a BNP of 928, and his TSH is elevated at 54. He was admitted to our Internal Medicine service. A CT scan of Electronically Signed By: KELLIE GAN MD 02/13/25 1359 PATIENT NAME: FABIENNE VELÁSQUEZ OPERATIVE REPORT DATE OF : 52 REPORT #: [id number] PHYSICIAN: KELLIE GAN MD PCP: CARLOS LUNA DO REPORT IS CONFIDENTIAL AND NOT TO BE RELEASED WITHOUT AUTHORIZATION [facility] [address] [place], [place] [address] Signed the abdomen and pelvis was done and he apparently has some inflammation in the cecum and right colon. He has anasarca and some reactive lymph nodes in his groins. Chest x-ray was not particularly concerning. He prior has just a small right pleural effusion. I was asked to see him as a local general surgeon on-call to consider upper and lower endoscopy. I had met with Fabienne here in the hospital. I got on the computer and went through some of his old records. He tells me he is a full code mostly at the desire of his . He said he could no longer drive. He finally decided he would do the upper and lower endoscopy. We reviewed that together. He understands there is risk including, but not limited to gas bloating, crampy abdominal pain, bleeding, perforation requiring surgery, and missed diagnosis. We also reviewed the need for monitored anesthesia care given his advanced age and decreased functional status. He also has a complex past medical history. We also gave him a full gallon of polyethylene glycol. We had to give him a whole bottle of magnesium citrate after the polyethylene glycol just to get him to initiate the bowel movements. The nurse told me this morning that it was liquid and mostly clear. Unfortunately, he had quite dark particulate stool matter when we brought him in the endoscopy suite. He had expressed understanding and wished to proceed. DESCRIPTION OF PROCEDURE: Fabienne was taken into our endoscopy suite and placed in supine semi-recumbent position. He was given monitored anesthesia care with propofol infusion per our nurse uplands division director. A bite block was utilized. The adult gastroscope was introduced and advanced under direct visualization of camera into the stomach. He had quite a bit of food in the stomach. Much of it covered the antrum. We made our way past the food carefully and out into the pyloric bulb into the duodenum. The duodenum and pyloric bulb were unremarkable. What we could see the antrum was unremarkable. The incisura body and fundus of the stomach were unremarkable. Upon retroflexion of scope, there was no hiatal hernia. No obvious gastritis or ulcerations. The scope was withdrawn up through the area of the GE junction, which was compliant without stricture. Minimal irritation around the Z-line. No Wise's mucosa. No distal esophagitis. The middle and upper esophagus were unremarkable. After this, the gas was suctioned out and the gastroscope removed. Fabienne tolerated the upper endoscopy quite well. Fabienne was then rotated into the left lateral decubitus position with appropriate padding and monitoring. He was maintained on IV propofol per our nurse uplands division director. A digital rectal exam was performed. He has moderate sized circumferential external hemorrhoids. Of course, he had little sphincter tone with the propofol infusion. There were no masses. The adult colonoscope was introduced and advanced under direct visualization of camera. We immediately encountered multiple areas of dark brown liquid particulate stool matter. It frequently clogged the scope. We made our way up to all the way to the handle. We thought we were probably in the very proximal transverse colon or very distal right colon. We made our way back carefully and we could see that he does have Electronically Signed By: KELLIE GAN MD 02/13/25 2272 PATIENT NAME: FABIENNE VELÁSQUEZ OPERATIVE REPORT DATE OF : 52 REPORT #: [id number] PHYSICIAN: KELLIE GAN MD PCP: CARLOS LUNA DO REPORT IS CONFIDENTIAL AND NOT TO BE RELEASED WITHOUT AUTHORIZATION [facility] [address] [place], [place] [address] Signed moderate-sized diverticula in the left and sigmoid colon. There were few to moderate in number. He had one small polyp in the left colon that we could not find because of liquid stool. We did find the 7 mm polyp at about 7 cm in the rectum. It was divided with the snare and suctioned through the scope. Upon retroflexion of scope he has very minimal internal hemorrhoid tissue. After this, the gas was suctioned out, colonoscope removed. Fabienne tolerated lower endoscopy quite well. However, he did need some and some fluid boluses during the procedure. RECOMMENDATIONS: Fabienne will go back to his hospital bed on the medical service. We will continue him on clear liquid diet. We will repeat the MiraLAX today. I will talk to him later today or in the morning to see if he wants to repeat the colonoscopy with a better bowel prep. Kellie Gan MD ALB/MODL /[id number] cc: MD Carlos Coe DO Copies: KELLIE GAN MD, ARIAN DO ~ Electronically Signed By: KELILE GAN MD 02/13/25 1359 PATIENT NAME: FABIENNE VELÁSQUEZ OPERATIVE REPORT DATE OF : 52 REPORT #: [id number] PHYSICIAN: KELLIE GAN MD PCP: CARLOS LUNA DO REPORT IS CONFIDENTIAL AND NOT TO BE RELEASED WITHOUT AUTHORIZATION
--- NOTE | 2025-02-13 14:15 | NUR ---
PATIENT FOCUS ASSESSMENT COMPLETE. PATIENT IS SITTING UP IN BED DRINKING FLUIDS. PATIENT IS ON A CLEAR LIQUID DIET WITH ACTIVE BOWEL TONES. PATIENT IS WITHIOUT COMPLAINTS OF PAIN OR NAUSEA AT THIS TIME. IV FLUSHED WITH 10ML OF NS, DRESSING INTACT. PATIENT DENIES ANY FURTHER NEEDS AT THIS TIME. CALL LIGHT AND PERSONAL BELONINGS WITHIN REACH. CPOX AT BEDSIDE.
[2025-02-13 14:25] LABS: HIV 1,2 COMBO ANTIGEN/ANTIBODY Negative (Negative)
--- NOTE | 2025-02-13 15:10 | NUR ---
PATIENT IS SITTING UP IN BED. LAST SET OF POST-OP VITALS TAKEN AT THIS TIME. VS STABLE. PATIENT REPORTS 3/10 PAIN, BUT DECLINES ANY PAIN MEDICATION AT THIS TIME. PATIENT DENIES ANY FURTHER NEEDS. CALL LIGHT AND PERSONAL BELONGINGS WITHIN REACH.
--- NOTE | 2025-02-13 15:26 | NUR ---
MARIAN AND I WENT IN TO CHECK TO SEE IF PATIENT NEEDED TO BE CHANGED. PATIENT WAS DRY.
--- NOTE | 2025-02-13 16:12 | NUR ---
PATIENT RESTING IN BED WITH EYES CLOSED. EVEN AND UNLABORED RESPIRATIONS NOTED. CALL LIGHT AND PERSONAL BELONGINGS WITHIN REACH.
--- NOTE | 2025-02-13 17:20 | NUR ---
PATIENT SITTING UP IN BED EATING DINNER. FAMILY AT BEDSIDE. PATIENT MEDICATED PER EMAR. PATIENT REPORTS 3/10 PAIN, BUT STILL DENIES ANY MEDICATION FOR IT. PATIENT STATED HE WOULD LET RN KNOW IF HE FEELS LIKE HE NEEDS IT. PATIENT DENIES ANY FURTHER NEEDS AT THIS TIME. CALL LIGHT AND PERSONAL BELONGINGS WITHIN REACH. CPOX AT BEDSIDE.
--- NOTE | 2025-02-13 18:45 | NUR ---
PATIENT HAVING ACTIVE WATERY STOOLS AT THIS TIME. RECTAL TUBE PLACED TO PREVENT SKIN BREAKDOWN. PATIENT TOLERATED WELL AFTER CONSENTING TO RECTAL TUBE BEING PLACED. DAVIN NELSON AND DAVIN FONSECA IN ROOM TO CHANGE BED LINEN. PATIENT STATED NO FURTHER NEEDS.
--- NOTE | 2025-02-13 19:05 | NUR ---
pt RESTING IN THE BED. FAMILY IN . BOARD UPDATED. pt DENIES ANY OTHER NEEDS AT THIS TIME. CALL LIGHT WITHIN REACH.
--- NOTE | 2025-02-13 20:30 | NUR ---
INSURANCE JOB TITLES OBTAINED VITALS AND I&O. PT STATES NO NEEDS AT THIS TIME. CALL LIGHT WITHIN REACH AND IN ROOM.
[2025-02-13 20:38] LABS: VITAMIN B1,PLASMA 11 nmol/L (4-15)
--- NOTE | 2025-02-13 20:45 | NUR ---
ASSESSMENT AND VITAL SIGNS DONE. pt RESTING IN THE BED. pt DRINKING THE REST OF BOWEL PREP. pt RESPOSITIONED ON LEFT SIDE. PILLOWS PLACED UNDER LEGS AND RIGHT ARM. BG CHECKED WITH A RESULTS OF 123. NO SS INSULIN AT THIS TIME. SCHEDULED MEDS ADMINISTERED. pt DENIES ANY OTHER NEEDS AT THIS TIME. CALL LIGHT WITHIN REACH.
[2025-02-13 23:47] LABS: HAPTOGLOBIN 35 mg/dL (30-200)
[2025-02-14] VITALS (13 sets, daily range): BP systolic 97–142; BP diastolic 54–67
--- NOTE | 2025-02-14 00:05 | NUR ---
pt RESTING IN THE BED. WITH EYES CLOSED. RR EVEN AND UNLABORED. CALL LIGHT WITHIN REACH.
--- NOTE | 2025-02-14 02:58 | NUR ---
pt RESTING IN THE BED WITH EYES CLOSED. RR EVEN AND UNLABORED. CALL LIGHT WITHIN REACH.
--- NOTE | 2025-02-14 04:19 | NUR ---
pt RESTING IN THE BED WITH EYES CLOSED. RR EVEN AND UNLABORED. CALL LIGHT WITHIN REACH.
[2025-02-14 05:29] LABS: BASOPHILS 0.2 % (0-2); EOSINOPHILS 2.7 % (0-6); HEMATOCRIT 23.1 % (35.0-50.0); HEMOGLOBIN 7.4 g/dL (12.0-18.0); LYMPHOCYTES 16.3 % (24-44); MCH 26.3 (27-36); MCHC 32.2 g/dl (30-36); MCV 81.8 fl (81-99); MONOCYTES 9.7 % (0-12); NEUTROPHILS 71.1 % (39-80); PLATELET COUNT 97 K/uL (140-440); RBC 2.82 M/ul (4.3-5.7); RDW 19.4 (10.5-15.0)
[2025-02-14 05:45] LABS: ALBUMIN/GLOBULIN RATIO 0.67 (1.1-2.4); ANION GAP 10.8 (7-21); BILIRUBIN, TOTAL 1.5 mg/dL (0.2-1.0); BUN/CREATININE RATIO 15.46 (6.0-28.6); CALCIUM 8.6 mg/dL (8.5-10.1); CREATININE, SERUM 1.81 mg/dL (0.70-1.30); MAGNESIUM 2.5 mg/dL (1.8-2.4); PHOSPHORUS, INORGANIC 3.4 mg/dL (2.5-4.9); POTASSIUM 3.8 mmol/L (3.5-5.1)
[2025-02-14] MEDS ORDERED: LEVOTHYROXINE SODIUM 175 MCG TAB PO SCH (06:00)
--- NOTE | 2025-02-14 06:58 | NUR ---
ASSESSMENT AND VITAL SIGNS DONE. pt RESTING ON THE LEFT SIDE. RECTAL TUBE BAG CHANGED. pt DENIES ANY OTHER NEEDS AT THIS TIME. CALL LIGHT WITHIN REACH.
--- NOTE | 2025-02-14 07:05 | NUR ---
PATIENT RESTING WITH HIS EYES CLOSED, LAYING ON HIS LEFT SIDE. EVEN AND UNLABORED RESPIRATIONS NOTED. CALL LIGHT AND PERSONAL BELONGINGS WITHIN REACH.
[2025-02-14] MEDS ORDERED: LACTATED RINGER'S 1,000 ML IV SCH (07:45)
--- NOTE | 2025-02-14 08:00 | NUR ---
PATIENT ASSESSMENT COMPLETED. PATIENT IS ALERT AND ORIENTED X4 AND IS A MIKHAIL LIFT/MAX ASSISST DUE TO RIGHT SIDED WEAKNESS FROM PREVIOUS CVA IN 2008. CARDIAC IS WITH NORMAL S1-S2 WITH STRONG PULSES IN BLE AND BUE. PATIENT IS WITH CHRONIC NUMBNESS/TINGLING IN THE RIGHT UPPER AND LOWER EXTREMETIES. PATIENT HAS NON-PITTING 2+ EDEMA IN THE BILATERAL UPPER AND LOWER EXTREMETIES; CAP REFILLS ARE <3 SECONDS. PATIENT IS ON ROOM AIR, LUNG SOUNDS ARE CLEAR THROUGHOUT. PATIENT HAS CHRONIC MACHUCA, WITH CLEAR YELLOW URINE. PATIENT IS NPO AT THIS TIME FOR COLONOSCOPY AT A LATER TIME TODAY. PATIENT IS HAVING WATERY STOOL AND HAS A RECTAL TUBE IN PLACE TO PREVENT FURTHER SKIN BREAKDOWN. BOWEL TONES ARE ACTIVE IN ALL 4 QUADRANTS. PATIENT'S CLAYTON AREA IS REDENED AND IS DUE FOR DESENEX THIS MORNING. PATIENT HAS SCATTERED BRUISING, DRY/CALLUS AREA TO BILATERAL TOP OF FEET AND ONE TO RIGHT BUTTOCK. IV FLUSHED WITH 10ML OF NS, DRESSING INTACT. LR INFUSING CONTINUOUS AT 100ML/HR. CALL LIGHT AND PERSONAL BELONGINGS WITHIN REACH.
--- NOTE | 2025-02-14 09:06 | NUR ---
KATEY FROM [facility] CALLED. PATIENT HAS ACCEPTANCE.
--- NOTE | 2025-02-14 09:14 | NUR ---
FAXED OVER PROG NOTES TO [facility]. WILL SEND PT/OT NOTES MONDAY. NO FUTHER CM NEEDS AT THIS TIME.
--- NOTE | 2025-02-14 09:35 | NUR ---
PATIENT IS LYING IN BED ON THEIR LEFT SIDE WITH EYES CLOSED AND RESPIRATIONS ARE EVEN AND UNLABORED. CPOX AT BEDSIDE. DAVIN NELSON IS IN THE ROOM AND GETTING VITAL SIGNS AND INTAKE AND OUTPUT. CALL LIGHT AND PERSONAL BELONGINGS ARE WITHIN REACH.
--- NOTE | 2025-02-14 10:20 | NUR ---
PT NOT AVAILABLE FOR VISIT. PROVIDED PRAYER.
--- NOTE | 2025-02-14 10:39 | NUR ---
PATIENT TAKEN OFF THE WITH SADIE HASTINGS FROM SURGERY AT THIS TIME.
[2025-02-14] MEDS ORDERED: LIDOCAINE HCL 2% 5 ML SDV ONE (10:48)
[2025-02-14] MEDS ORDERED: propofoL 200 MG/20 ML VIAL ONE ×3 (10:48→12:04)
--- NOTE | 2025-02-14 10:54 | NUR ---
PATIENT JUST WENT OFF TO HIS COLONOSCOPY, HEALTH INFORMATION MANAGER CHANGED HIS LINENS AND CLEANED ROOM UP A BIT.
--- NOTE | 2025-02-14 11:33 | NUR ---
PATIENT REMAINS OFF THE FLOOR AT THIS TIME. CLEAN BED LINENS IN PLACE.
--- NOTE | 2025-02-14 12:27 | NUR ---
PATIENT REMAINS OFF THE FLOOR AT THIS TIME.
--- NOTE | 2025-02-14 13:01 | NUR ---
02/14/25 1301 Sheets,Juli 1241 PT ARRIVED TO PACU ON 6L VIA MASK AND PT ASLEEP, RESP EVEN AND UNLABORED. VSS/ 1245 PT WOKE TO VERBAL STIMULI AND O2 MASK REMOVED. PT REORIENTED TO PACU AND DENIES CONCERNS. PT ENCOURAGED TO PASS GAS NEEDED. 1257 CBG 79.
--- NOTE | 2025-02-14 13:45 | NUR ---
SHOWER CAP AND BED BATH COMPLETE. PATIENT TOLERATED WELL. MACHUCA CARE COMPLETE. CLAYTON AREA CLEANED AND DESENEX POWDER APPLIED. PATIENT IS NOW SITTING UPRIGHT IN BED AND EATING LUNCH. PATIENT STATED NO FURTHER NEEDS AT THIS TIME. 1200 INSULIN HELD DUE TO BLOOD SUGAR BEING WITHIN RANGE.
--- NOTE | 2025-02-14 14:50 | NUR ---
PATIENT FOCUS ASSESSMENT COMPLETED. PATIENT IS LAYING IN BED WATCHING TV. PATIENT IS WITHOUT PAIN AT THIS TIME. PATIENT DIET IS 60G CARB, TOLERATING WELL BOWEL TONES ARE ACTIVE IN ALL 4 QUADRANTS. IV FLUSHED WITH 10ML OF NS, DRESSING INTACT. IV FLUIDS INFUSING AT 75ML/HR CONTINUOUS. PATIENT NOTED TO HAVE 2 SMALL AREAS OF OPENED SKIN, ALLEVYNS IN PLACE, NO DRAINAGE NOTED. PATIENT WITHOUT FURTHER NEEDS AT THIS TIME. CALL LIGHT AND PERSONAL BELONGINGS WITHIN REACH.
--- NOTE | 2025-02-14 15:30 | NUR ---
THIRD SET OF POST OP VITAL SIGNS TAKEN AND DOCUMENTED IN THE CHART. PATIENT IS LYING IN BED WITH EYES CLOSED AND RESPIRATIONS ARE EVEN AND UNLABORED THROUGHOUT THE INTERACTION. TV IS ON. CALL LIGHT AND PERSONAL BELONGINGS ARE WITHIN REACH.
--- NOTE | 2025-02-14 16:02 | NUR ---
PATIENT RESTING IN BED WITH EYES CLOSED. EVEN AND UNLABORED RESPIRATIONS NOTED. CALL LIGHT AND PERSONAL BELONGINGS WIHTIN REACH.
--- NOTE | 2025-02-14 16:21 | NUR ---
FINAL SET OF POST OP VITAL SIGNS TAKEN AND DOCUMENTED IN THE CHAERT. DAVIN FONSECA AND DAVIN DEJESUS ARE IN THE ROOM AT THIS TIME AND GETTING PATIENT ON THE BED ALEXIS. CPOX AT BEDSIDE. PATIENT STATED NO FURTHER NEEDS AT THIS TIME. CALL LIGHT AND PERSONAL BELONGINGS ARE WITHIN REACH.
--- NOTE | 2025-02-14 17:00 | NUR ---
PATIENT WAS IN BED AT THIS TIME AND NEEDED THE BED ALEXIS, OUTBOUND SALES CONSULTANT ASSISTED ONTO THE BED ALEXIS. THEN BACK OFF THE BED ALEXIS, CHANGED HIS BREIF AND WINTER PAD. GOT HIM REPOSITIONED IN BED AND SET UP FOR DINNER. CALL LIGHT WITH IN REACH AND NOTHING ELSE NEEDED AT THIS TIME.
--- NOTE | 2025-02-14 17:45 | NUR ---
PATIENT SITTING UP IN BED EATING DINNER. PATIENT DENIES ANY FURTHER NEEDS AT THIS TIME. CALL LIGHT AND PERSONAL BELONGINGS WITHIN REACH.
--- NOTE | 2025-02-14 18:00 | NUR ---
ROAD CLEANER CHARTED VITALS AND I&O'S, FAMILY IN ROOM WITH PATIENT. PATIENT SAID HE WAS FEELING NASUOUS, SADIE DUVALL AND SRINIVAS NOTIFIED. CALL LIGHT WITH IN REACH AND NOTHING ELSE NEEDED AT THIS TIME.
--- NOTE | 2025-02-14 18:05 | NUR ---
PATIENT REPORTING FEELING NAUSEATED. PRN DOSE OF ZOFRAN GIVEN. PATIENT WITHOUT ANY FURTHER NEEDS AT THIS TIME. FAMILY AT BEDSIDE. VS STABLE. CALL LIGHT AND PERSONAL BELONGINGS WITHIN REACH.
--- NOTE | 2025-02-14 19:05 | NUR ---
REPORT RECEIVED FROM BINU NOEL. pt RESTING IN THE BED. BOARD UPDATED. pt DENIES ANY OTHER NEEDS AT THIS TIME. CALL LIGHT WITHIN REACH.
--- NOTE | 2025-02-14 21:06 | NUR ---
Pt alert and oriented, on room air. had a semi liquid bm, skin care, lotion to periarea. desenex applied, clean attends in place. f/c patent draining medium colored yellow urine. fc care done, desenex to periarea applied, CBG 135, no coverage needed, helpful with turning and repositioning, LE and Head elevated. IVF insfusing w/o problems
--- NOTE | 2025-02-14 21:09 | NUR ---
FABIENNE IS AWAKE IN BED ON ROOM AIR WATCHING TV. HOB IS ELEVATED TO 46 DEGREES.
--- NOTE | 2025-02-14 21:20 | NUR ---
ASSEMENT AND VITAL SIGNS DONE. pt REPOSITIONED ON LEFT SIDE. SCHEDULED MEDS ADMINISTERED. pt DENIES ANY OTHER NEEDS AT THIS TIME. CALL LIGHT WITHIN REACH. BOWEL TONES ACTIVE.
--- NOTE | 2025-02-14 22:28 | NUR ---
Pt used call light, had 2 smears of liquid green scant amount of bm. skin care, lotion to nic area, clean attends. Helped with turning and repositioning. On room air, desats to 83% when turning and repositioning, Up to 95% as sonn as he is back on his back. R hand elevated with pillows, turned and repositionied. no c/o pian. f/c patent
[2025-02-15] VITALS (13 sets, daily range): BP systolic 109–138; BP diastolic 47–65
--- NOTE | 2025-02-15 00:17 | NUR ---
pt RESTING IN THE BED WITH EYES CLOSED. RR EVEN AND UNLABORED. CALL LIGHT WITHIN REACH.
--- NOTE | 2025-02-15 02:03 | NUR ---
Resting, awakens easily, on 2Lnc AT THIS TIME, NOT CHRONIC, bedside CPOX in place. Generalized edema present. took sips of fluids, tolerating well. f/c patent. .
--- NOTE | 2025-02-15 02:59 | NUR ---
FABIENNE IS ASLEEP ON A 2L NC.
--- NOTE | 2025-02-15 05:20 | NUR ---
Pt placed on Oxymask earlier, O2 titrated up to 3L, repositioned in bed. R leg and FOB elevated with pillows. f/c patent. draining small amounts medium dark yellow urine. attends in place, has had 2 smears of greenighs colored bm. skin care done. alert and oriented
[2025-02-15 05:24] LABS: BASOPHILS 0.3 % (0-2); EOSINOPHILS 0.6 % (0-6); HEMATOCRIT 22.5 % (35.0-50.0); HEMOGLOBIN 7.3 g/dL (12.0-18.0); MCH 26.3 (27-36); MCHC 32.5 g/dl (30-36); MONOCYTES 9.8 % (0-12); NEUTROPHILS 78.3 % (39-80); PLATELET COUNT 94 K/uL (140-440); RBC 2.78 M/ul (4.3-5.7); RDW 19.4 (10.5-15.0)
[2025-02-15 05:41] LABS: ALBUMIN 2.1 g/dL (3.4-5.0); ALBUMIN/GLOBULIN RATIO 0.7 (1.1-2.4); ANION GAP 12.1 (7-21); BILIRUBIN, TOTAL 1.6 mg/dL (0.2-1.0); BUN/CREATININE RATIO 17.11 (6.0-28.6); CALCIUM 8.8 mg/dL (8.5-10.1); CREATININE, SERUM 1.87 mg/dL (0.70-1.30); MAGNESIUM 2.2 mg/dL (1.8-2.4); POTASSIUM 4.1 mmol/L (3.5-5.1); PROTEIN, TOTAL 5.1 g/dL (6.4-8.2)
--- NOTE | 2025-02-15 07:04 | NUR ---
REPORT RECEIVED FROM SADIE KATE. PATIENT RESTING IN BED. PATIENT WITHOUT ANY NEEDS AT THIS TIME. CALL LIGHT AND PERSONAL BELONGINGS WITHIN REACH. CPOX AT BEDSIDE.
--- NOTE | 2025-02-15 07:55 | NUR ---
PATIENT APPEAR MORE LETHARGIC AND STATES HE IS UNABLE TO HOLD HIS CUP OF WATER FOR A DRINK, THIS IS NEW FROM YESTERDAY. PATIENT IS ALSO VERY WARM TO THE TOUCH. TEMP RETAKEN AT THIS TIME AND WAS 101.0. PATIENT HAS RECEIVED DOSE OF TYLENOL FOR 100.5 TEMP AT 0514. PRN DOSE OF TYLENOL IS Q6P. PATIENT ALSO ON 4L OXY MASK AT THIS TIME WITH SATS OF 91%. HEART RATE 84, BLOOD PRESSURE, 109/47 WITH A MAP OF 60. DR DOBSON NOTIFIED. STATES HE WILL PUT SOME BLOOD CULTURES IN AND GO FROM THERE. WITH NO FURTHER ORDERS AT THIS TIME.
[2025-02-15] MEDS ORDERED: CEFTRIAXONE SODIUM 2 GM VIAL ONE (08:17)
--- NOTE | 2025-02-15 08:22 | NUR ---
PATIENT ASSESSMENT COMPLETED. PATIENT IS ALERT AND ORIENTED X4. PATIENT IS A MIKHAIL LIFT DUE TO RIGHT SIDED WEAKNESS FROM PREVIOUS CVA IN 2008. CARDIAC IS WITH NORMAL S1-S2, WITH STRONG PULSES IN UPPER AND LOWER EXTREMETIES. PATIENT REPORTS CHRONIC NUMBNESS/TINGLING IN UPPER AND LOWER RIGHT EXTREMETIES. CAP REFILL IS <3 IN BILATERAL UPPER AND LOWER EXTREMETIES. PATIENT IS WITH 3+ EDEMA IN UPPER AND LOWER EXTREMETIES BILATERALLY. PATIENT IS ON 2L NC AT 92% AT THIS TIME WITH CLEAR LUNG SOUNDS THROUGHOUT. CPOX AT BEDSIDE. PATIENT IS ON 60G CARB DIET WITH ACTIVE BOWEL TONES IN ALL 4 QUADRANTS. PATIENT REPORTS HIS ABDOMEN "JUST FEELS OFF", BUT DENIES ANY OTHER PAIN. PATIENT ALSO REPORTS FEELING WEAK. PATIENT HAS CHRONIC URINARY RETENTION AND STRAIGHT CATHS SELF, BUT HAS A MACHUCA WHILE HOSPITALIZED. PATIENT STATES HE IS UNABLE TO "DRINK MUCH BECAUSE I'M TOO WEAK AND JUST DON'T FEEL GOOD". URINARY OUTPUT IS MINIMAL AT THIS TIME, BUT DID HAVE ADEQUATE OUTPUT DURING LAST SHIFT. URINE IS CONCENTRATED YELLOW. PATIENT HAS SCATTERED BRUISING THROUGHOUT AND TWO OPEN SKIN AREAS (ONE IN MIDDLE OF CHEST AND ONE AT FRONT OF SHOULDER) THAT HAVE NO DRAINAGE AND COVERED WITH ALLEVYNS. IV FLUSHED WITH 10ML OF NS, DRESSING INTACT. SITTING UP TO TRY AND EAT SOME BREAKFAST. SADIE SCHMID AT BEDSIDE TO ASSISST PATIENT NEEDED. PATIENT DENIES ANY FURTHER NEEDS AT THIS TIME. CALL LIGHT AND PERSONAL BELONINGS WITHIN REACH.
--- NOTE | 2025-02-15 08:38 | NUR ---
IMAGING AT BEDSIDE FOR CHEST XRAY
--- NOTE | 2025-02-15 08:41 | OR ---
[facility] [address], [place] [address] Signed DATE OF OPERATION: 02/14/2025 SURGEON: Kellie Gan MD PREOPERATIVE DIAGNOSES: 1. Intermittent blood associated with bowel movements. 2. Guaiac-positive stool. 3. Right-sided colitis on recent CT scan. 4. Chronic anemia. 5. Diverticulosis. 6. Personal history of colorectal polyps from yesterday. 7. He has a long redundant colon. 8. Moderate external hemorrhoids. POSTOPERATIVE DIAGNOSES: 1. Long redundant colon. 2. Tortuous sigmoid colon. 3. Moderate left-sided diverticulosis. 4. Moderate external hemorrhoids. 5. 5 mm polyp at 50 cm in left colon. 6. Cecal polyps x2. 7. 8 mm polyp on the ileocecal valve. 8. Seven polyps in right colon ranging from 4 mm up to 7 mm. 9. 5 mm polyp in the hepatic flexure. PROCEDURE: Colonoscopy with snare polypectomy and hot biopsy. ESTIMATED BLOOD LOSS: None. 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 He has a long history of type 2 diabetes, hypertension, hypothyroidism, chronic anemia, urinary retention requiring self catheterizations since 2013. He has had trouble with kidney stones as well as a significant stroke in 2008, which has affected his right arm and leg along with some lower extremity edema. He said his last upper and lower endoscopy was in 2000 at the age of 51 [address] Greenwood at our [facility]. Those records are no longer available. He still lives with his , Alisia in the house. He is no longer able to drive. He does remain a full code. He Electronically Signed By: KELLIE GAN MD 02/15/25 0841 PATIENT NAME: FABIENNE VELÁSQUEZ OPERATIVE REPORT DATE OF : 52 REPORT #: [id number] PHYSICIAN: KELLIE GAN MD PCP: MISSY LUNA DO REPORT IS CONFIDENTIAL AND NOT TO BE RELEASED WITHOUT AUTHORIZATION [facility] [address], [place] [address] Signed came in the hospital in April 2024 with significant anemia and required a couple of units of packed red blood cells because he was symptomatic. He once again developed symptomatic anemia and came back in the hospital on our Internal Medicine service. He again received a couple units of packed red blood cells. The CT scan was concerning for some inflammation in the cecum and right colon. He appears to have some reactive bilateral inguinal lymph nodes and some anasarca. I have been asked to see him as a local general surgeon for consideration of upper and lower endoscopy. I had met with Fabienne, we had a long discussion regarding the above findings. I went back and reviewed an enormous amount of his records. He told me to put himself through a bowel prep at home and be more less prohibitive. He said it would be awful for him and works for his . He was supposed to come see me as an outpatient in 2022, but because of his physical functional status along with his concerns over transportation, he did not want to make that appointment. He decided since he was in the hospital might be a good idea to go ahead and go through his bowel prep with the help of the nurses. We did that for him and we took him for upper and lower endoscopy yesterday. Despite his bowel prep and clear liquid status, he had food in his stomach. 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 We found moderate left-sided diverticulosis along with a polyp in the rectum. He does have a long redundant colon and some moderate external hemorrhoids. Unfortunate, his bowel prep was moderately poor. We just simply could not see his multiple areas and we thought in the end, we made it probably to the hepatic flexure. We decided to repeat the bowel prep yesterday with clear liquid diet and try once again today. He is fully aware of colonoscopy at this point. There is risk including, but not limited to gas bloating, crampy abdominal pain, bleeding, perforation requiring surgery, and missed diagnosis. Also, because of his functional status and his medical issues we did ask for anesthesia care as we did yesterday. That worked out quite nicely today. Fabienne had expressed understanding and wished to try once again for his colonoscopy today. DESCRIPTION OF PROCEDURE: Fabienne was taken into our endoscopy suite and placed in the left lateral decubitus position. He was given monitored anesthesia care propofol infusion per our nurse hvac/r service technician. A digital rectal exam was performed and again he has circumferential external hemorrhoids. He had decent sphincter tone with respect to his propofol infusion. There were no masses. The adult colonoscope was introduced and advanced under direct visualization of camera. We did have to suction out some liquid stool and he seems to have an enormous amount of small seeds in his diet. We completely clogged up the first scope and had to change it out for a second scope. At that time, we made it very carefully he has very tortuous sigmoid colon and up and around into the hepatic flexure. We had to rotate him in the supine position and used two people with abdominal compression and to get the scope down and into the cecum itself. He had some light green bilious fluid in the right colon, but it was easily suctioned out. We were impressed that the number of polyps that he had but thankfully none of them were Electronically Signed By: KELLIE GAN MD 02/15/25 0841 PATIENT NAME: FABIENNE VELÁSQUEZ OPERATIVE REPORT DATE OF : 52 REPORT #: [id number] PHYSICIAN: KELLIE GAN MD PCP: MISSY LUNA DO REPORT IS CONFIDENTIAL AND NOT TO BE RELEASED WITHOUT AUTHORIZATION [facility] [address], [place] [address] Signed particularly large. We used a combination of the snare and hot biopsy forceps to remove the polyps. We went very slowly given the fact this will probably be his last colonoscopy. It does not appear that any of the polyps were large enough that would have bothered him in his lifetime. Most of the polyps were captured, some were not. Some were so small, we simply cauterized them. It was impressive the redundancy of his colon. He does have moderate-sized diverticula in the left and sigmoid colon. There were few to moderate in number and scattered about. Again, he has a tortuous sigmoid colon. Once in the rectum, the scope was retroflexed and we did not see any pathology above the anal canal. After this, the gas was suctioned out. The colonoscope removed. Fabienne tolerated the procedure quite well. RECOMMENDATIONS: Fabienne will be returned to his hospital bed on our hospitalist service. We will resume his diet. I am not sure that any of these polyps or the findings in the stomach would explain his chronic anemia. In due time he can come by the office so we can call him at home with those results. We will also share them with his primary care provider, Dr. Luna. Kellie Gan MD ALB/MODL /[id number] cc: DO Kellie Billings MD Copies: MISSY LUNA ANDREW L MD ~ Electronically Signed By: KELLIE GAN MD 02/15/25 0841 PATIENT NAME: FABIENNE VELÁSQUEZ OPERATIVE REPORT DATE OF : 52 REPORT #: [id number] PHYSICIAN: KELLIE GAN MD PCP: MISSY LUNA DO REPORT IS CONFIDENTIAL AND NOT TO BE RELEASED WITHOUT AUTHORIZATION
[2025-02-15] MEDS ORDERED: PANTOPRAZOLE SODIUM 40 MG TABEC PO SCH (09:00)
[2025-02-15] MEDS ORDERED: CEFTRIAXONE SODIUM 2 GM in SODIUM CHLORIDE 0.9% 100 ML IV SCH (09:00)
--- NOTE | 2025-02-15 09:05 | NUR ---
PATIENT ASSISTED WITH EATING HIS YOGURT AT THIS TIME DUE TO PATIENT STATING HIS YOGURT "KEEPS SLIPPING" OUT OF HIS HANDS. BREAKFAST FINISHED AND HIS TRAY REMOVED AT THIS TIME. IV ROCEPHIN DOSE COMPLETE. IV SITE FLUSHED WITH 10 ML NORMAL SALINE AND IS SALINE LOCKED. IV DRESSING IS CLEAN, DRY, AND INTACT. PATIENT STATED NO FURTHER NEEDS AT THIS TIME. CALL LIGHT AND PERSONAL BELONGINGS ARE WITHIN REACH.
[2025-02-15] MEDS ORDERED: CEFEPIME HCL 1 GM in SODIUM CHLORIDE 0.9% 100 ML IV SCH ×2 (10:00→14:00)
[2025-02-15] MEDS ORDERED: metroNIDAZOLE 250 MG TAB PO SCH (10:00)
--- NOTE | 2025-02-15 10:30 | NUR ---
PATIENT LAYING DOWN IN BED RESTING WITH EYES CLOSED. EVEN AND UNLABORED RESPIRATIONS NOTED. PATIENT EASILY AROUSABLE. PATIENT ABLE TO SIT UP AND SWALLOW MEDICATIONS. MACHUCA CARE COMPLETED. CLAYTON AREA CLEAN, OLD POWER CLEANED OFF TO VISUALIZE SKIN. AREA STILL RED WITH BREAKDOWN. DESENEX POWER REAPPLIED. PATIENT AT 97% ON 2L NC. THIS RN TURNED OXYGEN DOWN TO 1L NC AT THIS TIME. CPOX AT BEDSIDE. PATIENT WITHOUT FURTHER NEEDS. CALL LIGHT AND PERSONAL BELONGINGS WITHIN REACH.
--- NOTE | 2025-02-15 11:15 | NUR ---
PATIENT RESTING IN BED WITH EYES CLOSED. EVEN AND UNLABORED RESPIRATIONS NOTED. PATIENT WOKEN BY THIS RN TO COLLECT MRSA SWAB. PATIENT TOLERATED WELL. PATIENT DENIES ANY FURTHER NEEDS AT THIS TIME. CALL LIGHT AND PERSONAL BELONGINGS WITHIN REACH.
--- NOTE | 2025-02-15 11:51 | NUR ---
PATIENT CBG WAS 141. LOWEST NUMBER ON SLIDING SCALE IS 141. PATIENT HAS HISTORY OF DROPPING GLUCOSE QUICKLY. DR DOBSON NOTIFIED. WITH VERBAL ORDER TO HOLD 1 UNIT OF INSULIN AT THIS TIME.
--- NOTE | 2025-02-15 12:35 | NUR ---
PATIENT RESTING IN BED. 75ML OF CONCENTRATED URINE WITH SEDIMENT NOTED IN MACHUCA. PATIENT BLADDER SCANNED AT THIS TIME. 0ML OF URINE IN BLADDER. LUNCH TRAY SET UP FOR PATIENT. PATIENT REPORTS STILL FEELING WEAK. FRESH ICE WATER PROVIDED. PATIENT WITHOUT FURTHER NEEDS AT THIS TIME. CALL LIGHT AND PERSONAL BELONGINGS WITHIN REACH.
[2025-02-15] MEDS ORDERED: CEFEPIME HCL 1 GM VIAL ONE ×2 (13:30→21:03)
--- NOTE | 2025-02-15 13:50 | NUR ---
PATIENT IS LYING IN BED AND RESTING UPON THIS RN ENTERING THE ROOM. 1330 FLAGYL AND 1400 CEFEPIME ADMINISTERED PER THE EMAR. PATIENT IS ALERT AND ORIENTED TIMES FOUR. PATIENT WITH WEAKNESS THROUGHOUT. CHRONIC NUMBNESS NOTED TO THE RIGHT SIDE IN THE UPPER AND LOWER EXTREMITIES. PATIENT WITH 2+ PITTING EDEMA NOTED TO THE UPPER EXTREMITIES AND 3+ PITTING EDEMA NOTED TO THE BILATERAL LOWER EXTREMITIES. IV SITE FLUSHED WITH 10 ML NORMAL SALINE AND THE DRESSING IS CLEAN, DRY, AND INTACT. CEFEPIME IS INFUSING AT THIS TIME. PATIENT RATED PAIN 2/10 IN THE LOWER BACK BUT IS NOT REQUESTING ANYTHING FOR PAIN AT THIS TIME. VITAL SIGNS AND INTAKE AND OUTPUT VALUES TAKEN AND ARE DOCUMENTED IN THE CHART. PATIENT STATED NO FURTHER NEEDS AT THIS TIME. CALL LIGHT AND PERSONAL BELONGINGS ARE WITHIN REACH.
--- NOTE | 2025-02-15 14:21 | NUR ---
PATIENT IS LYING IN BED WITH EYES CLOSED AND RESPIRATIONS ARE EVEN AND UNLABORED. PATIENT IS ON ROOM AIR WITH AN SPO2 OF 97%. CALL LIGHT AND PERSONAL BELONGINGS ARE WITHIN REACH.
[2025-02-15 14:40] LABS: HCV GENOTYPE BY SEQUENCING Indeterminate (())
--- NOTE | 2025-02-15 15:20 | NUR ---
PATIENT IS LYING IN BED WITH EYES CLOSED AND RESPIRATIONS ARE EVEN AND UNLABORED. PATIENT IS ON ROOM AIR AND SPO2 IS 96%. CPOX AT BEDSIDE. CALL LIGHT AND PERSONAL BELONGINGS ARE WITHIN REACH.
--- NOTE | 2025-02-15 16:26 | NUR ---
PATIENT IS LYING IN BED WITH EYES CLOSED AND RESPIRATIONS ARE EVEN AND UNLABORED. PATIENT IS ON ROOM AIR AND SPO2 IS 93%. CALL LIGHT AND PERSONAL BELONGINGS ARE WITHIN REACH.
--- NOTE | 2025-02-15 17:13 | NUR ---
PATIENT BOOSTED UP IN BED AND SITTING UP IN THE BED. VITAL SIGNS TAKEN AND DOCUMENTED IN THE CHART. PATIENT PROVIDED A CHOCOLATE ENSURE AND FRESH CUP OF ICE WATER. PATIENT IS DOING THE ACCAPELLA AT THIS TIME. PATIENT STATED NO FURTHER NEEDS AT THIS TIME. CALL LIGHT AND PERSONAL BELONGINGS ARE WITHIN REACH.
--- NOTE | 2025-02-15 17:50 | NUR ---
UPDATE GIVEN TO PATIENT DAUGHTER AT THIS TIME. SADIE AQUINO SALINE LOCKED THE IV AT THIS TIME. PATIENT FAMILY WITH NO FURTHER QUESTIONS OR CONCERNS
--- NOTE | 2025-02-15 18:10 | NUR ---
PATIENT IS LYING IN BED WITH HOB ELEVATED WITH EYES CLOSED AND RESPIRATIONS ARE EVEN AND UNLABORED. PATIENT STATES BEING DONE WITH HIS DINNER TRAY. THIS RN REMOVED DINNER TRAY AT THIS TIME. PATIENT REMAINS ON RA WITH THE CPOX AT BEDSIDE. PATIENT WITH TWO FAMILY MEMBERS SITTING ON THE COUCH. PATIENT STATED NO FURTHER NEEDS AT THIS TIME. CALL LIGHT AND PERSONAL BELONGINGS ARE WITHIN REACH.
--- NOTE | 2025-02-15 19:20 | NUR ---
RECEIVED REPORT FROM DAY SHIFT RN. PATIENT IS RESTING IN BED VISITING WITH FAMILY. PATIENT AND FAMILY DENY AND NEEDS AT THIS TIME. CALL LIGHT IN REACH.
--- NOTE | 2025-02-15 20:42 | NUR ---
FABIENNE IS AWAKE IN BED WATCHING TV. HE IS ROOM AIR W/HOB ELEVATED.
--- NOTE | 2025-02-15 21:15 | NUR ---
PATIENTS VITALS TAKEN AND RECORDED. PATIENTS MACHUCA EMPTIED. MACHUCA CARE COMPLETED. PATIENTS INTAKE AND OUTPUT RECORDED. PATIENT HAD A SMEAR BM. NEW ATTEND IN PLACE. PATIENT REPOSITIONED IN BED ON LEFT SIDE. PATIENT DENIES AY PAIN. PATIENT DENIES ANY SOB. PATIENT IS ON RA. PATIENT HAS SCDS IN PLACE. PATIENT IS ON CPOX. AT BEDSIDE AND UPDATED ON PLAN OF CARE AND ALL QUESTIONS ANSWERED. PATIENT DENIES ANY FURTHER NEEDS. CALL LIGHT IN REACH. IV ABX INFUSING PER ORDER. PATIENTS BS CHECKED AND SS ADMIN PER ORDER.
--- NOTE | 2025-02-15 22:00 | NUR ---
PATIENT IS POSITIONED IN BED ON LEFT SIDE. PATIENT REPORTS "I THINK I POOPED OR JUST A LOT OF GAS". PATIENTS ATTEND CHECKED AND IS DRY AT THIS TIME. NO BM NOTED. PATIENT DENIES ANY FURTHER NEEDS. CALL LIGHT IN REACH. WARM BLANKET PROVIDED. IV ABX INFUSING PER ORDER.
[2025-02-16] VITALS (10 sets, daily range): BP systolic 123–141; BP diastolic 55–63
--- NOTE | 2025-02-16 00:29 | NUR ---
PATIENT IS RESTING IN BED WITH EYES CLOSED, CPOX READINGS ARE WNL. NAD NOTED. CALL LIGHT IN REACH.
--- NOTE | 2025-02-16 01:34 | NUR ---
FABIENNE IS ASLEEP ON ROOM AIR.
--- NOTE | 2025-02-16 02:21 | NUR ---
PATIENT IS RESTING IN BED WITH EYES CLOSED, CPOX READINGS ARE WNL. NAD NOTED. CALL LIGHT IN REACH.
--- NOTE | 2025-02-16 03:56 | NUR ---
PATIENT INCONT STOOL. PATIENTS ATTEND CHANGED, CLAYTON CARE COMPLETED AND NEW ATTEND IN PLACE. PATIENT REPOSITIONED IN BED. PATIENT PROVIDED SIPS OF WATER. PATIENT DENIES ANY FURTHER NEEDS. CALL LIGHT IN REACH.
[2025-02-16] MEDS ORDERED: CEFEPIME HCL 1 GM VIAL ONE ×3 (04:56→22:07)
[2025-02-16 05:28] LABS: BASOPHILS 0.3 % (0-2); EOSINOPHILS 1.7 % (0-6); HEMATOCRIT 21.4 % (35.0-50.0); HEMOGLOBIN 6.9 g/dL (12.0-18.0); LYMPHOCYTES 14.5 % (24-44); MCH 26.3 (27-36); MCHC 32.1 g/dl (30-36); MONOCYTES 11.2 % (0-12); NEUTROPHILS 72.3 % (39-80); PLATELET COUNT 85 K/uL (140-440); RBC 2.61 M/ul (4.3-5.7); RDW 19.7 (10.5-15.0)
--- NOTE | 2025-02-16 05:34 | NUR ---
PATIENTS VITALS TAKEN AND RECORDED. MACHUCA EMPTIED. MACHUCA CARE COMPLETED. INTAKE AND OUTPUT RECORDED. PATIENTS IV FLUSHED AND AM IV ABX INFUSING PER ORDER. PATIENTS AM PO MEDS GIVEN PER ORDER. PATIENT REPOSITIONED IN BED. PATIENT IS ON RA. CPOX IN USE. PATIENT HAS SCDS IN USE. PATIENT DENIES ANY FURTHER NEEDS. CALL LIGHT IN REACH.
[2025-02-16 05:44] LABS: ALBUMIN 1.9 g/dL (3.4-5.0); ALBUMIN/GLOBULIN RATIO 0.61 (1.1-2.4); ANION GAP 13.2 (7-21); BILIRUBIN, TOTAL 1.5 mg/dL (0.2-1.0); BUN/CREATININE RATIO 19.56 (6.0-28.6); CREATININE, SERUM 1.84 mg/dL (0.70-1.30); POTASSIUM 4.2 mmol/L (3.5-5.1)
--- NOTE | 2025-02-16 07:06 | NUR ---
REPORT RECEIVED FROM SADIE CAHN. PATIENT RESTING IN BED WITH EYES CLOSED, EVEN AND UNLABORED NOTED. CALL LIGHT AND PERSONAL BELONGINGS WITHIN REACH. CPOX AT BEDSIDE.
[2025-02-16 08:03] LABS: ABO A; ANTIBODY SCREEN NEGATIVE; IS CROSSMATCH COMPATIBLE; RH NEGATIVE
--- NOTE | 2025-02-16 08:15 | NUR ---
NOTIFIED OF PATIENT TEMPERATURES TAKEN PRIOR TO BLOOD ADMINISTRATION. DR. DOBSON STATED TO PROCEED WITH BLOOD ADMINISTRATION. WITH NO FURTHER ORDERS AT THIS TIME.
--- NOTE | 2025-02-16 08:20 | NUR ---
SADIE SCHMID AND THIS RN AT BEDSIDE TO CONFIRM BLOOD PRODUCTS AND START BLOOD TRANSFUSION. THIS RN TO STAY AT BEDSIDE FOR FIRST 15 MINS OF BLOOD TRANSFUSION. PATIENT EDUCATED ON SIGNS AND SYMPTOMS TO ALERT NURSE OF FOR TRANSFUSION REACTION. PATIENT VERBALIZED UNDERSTANDING.
--- NOTE | 2025-02-16 09:01 | NUR ---
PATIENT RESTING IN BED, DENIES WANTING TO EAT BREAKFAST AT THIS TIME. FRESH ICE WATER PROVIDED. PATIENT WITHOUT FURTHER NEEDS AT THIS TIME. CALL LIGHT AND PERSONAL BELONGINGS WITHIN REACH.
--- NOTE | 2025-02-16 10:13 | NUR ---
PATIENT IS LYING IN BED WITH EYES CLOSED AND RESPIRATIONS ARE EVEN AND UNLABORED. PATIENT IS ON ROOM AIR. CPOX AT BEDSIDE. PATIENT ORAL TEMPERATURE IS 98.4 AT THIS TIME. BLOOD CONTINUES TO INFUSE. PATIENT STATED NO FURTHER NEEDS AT THIS TIME. CALL LIGHT AND PERSONAL BELONGINGS ARE WITHIN REACH.
--- NOTE | 2025-02-16 11:05 | NUR ---
PATIENT IS LAYING IN BED WITH EYES CLOSED, EVEN AND UNLABORED RESPIRATIONS NOTED. CALL LIGHT AND PERSONAL BELONGINGS WITHIN REACH.
--- NOTE | 2025-02-16 11:57 | NUR ---
Ifeanyi Hamilton. Patient is currently sleeping. No request from patient at this time
--- NOTE | 2025-02-16 12:01 | NUR ---
1200 MEDICATIONS ADMINISTERED PER THE EMAR. PATIENT IS SITTING UPRIGHT IN BED AND EATING LUNCH. PATIENT STATED NO FURTHER NEEDS AT THIS TIME. PATIENT REMAINS ON ROOM AIR WITH THE CPOX AT BEDSIDE. FIRST UNIT OF BLOOD IS FINISHING. CALL LIGHT AND PERSONAL BELONGINGS ARE WITHIN REACH.
--- NOTE | 2025-02-16 12:17 | NUR ---
UNIT OF BLOOD COMPLETE. VITAL SIGNS TAKEN AND DOCUMENTED IN THE CHART. SADIE SOLORIO SALINE LOCKED THE PATIENT. CEFEPIME IS INFUSING AT THIS TIME. PATIENT IS SITTING UP IN BED AND EATING LUNCH. PATIENT IS ON ROOM AIR AND THE CPOX AT BEDSIDE. PATIENT IV PUMP CLEARED AT THIS TIME. PATIENT STATED NO FURTHER NEEDS AT THIS TIME. CALL LIGHT AND PERSONAL BELONGINGS ARE WITHIN REACH.
--- NOTE | 2025-02-16 13:30 | NUR ---
PATIENT REPORT HE NEEDED TO HAVE A BM. PATIENT PLACED ON BED ALEXIS. PATIENT HAD MEDIUM, LOOSE, BM. PATIENT CLEANED UP, NEW BRIEF PLACED. THIS RN ASSISSTED PT WITH USING THE MIKHAIL TO TRANSFER PATIENT FROM BED TO CHAIR. PATIENT TOLERATED WELL. PATIENT NOW SITTING UP IN CHAIR WATCHING TV. FRESH ICE WATER, SPRITE WITH CRANBERRY JUICE, AND CHOCOLATE ENSURE PROVIDED. FRESH GOWN PLACED ON PATIENT. SADIE SCHMID CHANGED PATIENT LINEN AND PLACED WAFFLE MATTRESS. PATIENT DENIES ANY FURTHER NEEDS AT THIS TIME. CALL LIGHT AND PERSONAL BELONGINGS WITHIN REACH.
--- NOTE | 2025-02-16 15:45 | NUR ---
PATIENT FOCUS ASSESSMENT COMPLETED. PATIENT IV FLUSHED WITH 10ML OF NS, DRESSING INTACT. IV ABX INFUSING AT 25ML/HR. PATIENT IS WITH 2+ NON PITTING EDEMA TO LEFT UPPER EXTREMETY, 3+ NON-PITTING EDEMA TO RIGHT UPPER EXTREMETY, AND 2+ NON-PITTING EDEMA TO BILATERAL LOWER EXTREMETIES. PATIENT PULSES ARE STRONG IN UPPER AND LOWER EXTREMETIES. PATIENT REPORTS CHRONIC NUMBNESS/TINGLING TO RIGHT UPPER AND LOWER EXTREMETIES. PATIENT DENIES ANY PAIN, JUST REPORTS FEELING WEAK AND TIRED. PATIENT WITHOUT FURTHER NEEDS AT THIS TIME. CALL LIGHT AND PERSONAL BELONGINGS WITHIN REACH.
--- NOTE | 2025-02-16 16:05 | NUR ---
PATIENT SITTING UP IN CHAIR WITH TV PLAYING. PATIENT EYES ARE CLOSED AT THIS TIME. EVEN AND UNLABORED RESPIRATIONS NOTED. CALL LIGHT AND PERSONAL BELONGINGS WITHIN REACH.
--- NOTE | 2025-02-16 17:02 | NUR ---
PATIENT MEDICATED PER EMAR. PATIENT SITTING UP IN CHAIR EATING DINNER AND VISITING WITH DAUGHTER AT BEDSIDE. PATIENT IS WITHOUT ANY NEEDS AT THIS TIME. CALL LIGHT AND PERSONAL BELONGINGS WITHIN REACH.
--- NOTE | 2025-02-16 17:15 | NUR ---
ROUNDED ON PATIENT. HE IS UP TO THE CHAIR FOR DINNER. FAMILY AT BEDSIDE. PT HAD NO COMPLAINTS OR NEEDS AT THIS TIME. CALL LIGHT IN REACH.
--- NOTE | 2025-02-16 17:51 | NUR ---
PATIENT IS SITTING IN THE CHAIR WITH BILATERAL LOWER EXTREMITIES ELEVATED. PATIENT IS WORKING ON EATING HER DINNER. CEFEPIME INFUSION IS RUNNING AT THIS TIME. PATIENT WITH TV. PATIENT IS ON ROOM AIR. PATIENT STATED NO FURTHER NEEDS AT THIS TIME. CALL LIGHT AND PERSONAL BELONGINGS ARE WITHIN REACH.
--- NOTE | 2025-02-16 18:20 | NUR ---
PATIENT SITTING UP IN CHAIR VISITING WITH DAUGHTER AND WATCHING TV. PATIENT WITHOUT FURTHER NEEDS AT THIS TIME. CALL LIGHT AND PERSONAL BELONGINGS WITHIN REACH.
--- NOTE | 2025-02-16 19:08 | NUR ---
RECEIVED REPORT FROM DAY SHIFT RN. PATIENT IS RESTING IN RECLINER. PATIENT DENIES ANY NEEDS AT THIS TIME. CALL LIGHT IN REACH. FAMILY AT BEDSIDE.
--- NOTE | 2025-02-16 20:22 | NUR ---
PATIENT HOYERED BACK TO BED. PATIENT PLACED ON BED ALEXIS. PATIENT HAD BM. PATIENTS ATTEND CHANGED AND CLAYTON CARE COMPLETED. MACHUCA CARE COMPLETED. PATIENTS POWEDER APPLIED TO GROIN AREA. PATIENTS MACHUCA EMPTIED. INTAKE AND OUTPUT RECORDED. PATIENTS VITALS TAKEN AND RECORDED. PATIENT REPOSITIONE DIN BED. PATIENTS HAS SCDS IN PLACE AND BILAT LOW EXT ELEVATED ON PILLOWS. PATIENTS RUE ELEVATED ON X2 PILLOWS. PATIENTS PM MEDS GIVEN PER ORDER. PATIENT REPORTS 3/10 PAIN "ALL OVER", PRN MEDICATION GIVEN PER ORDER. PATIENTS IV FLUSHED AND SL PER ORDER. PATIENT ASSESMENT COMPLETED. PATIENT IS AAOX4. UPDATE PATIENTS AND PATIENTS ON PLAN OF CARE AND ALL QUESTION ANSWERED. CPOX IN USE. PATIENT REMAINS ON RA. FRESH ICE WATER AND WARM BLANKET PROVIDED. PATIENT AND PATIENTS FAMILY DENY ANY FURTHER NEEDS. CALL LIGHT IN REACH.
--- NOTE | 2025-02-16 22:21 | NUR ---
PATIENT IS RESTING IN BED WITH EYES CLOSED, CPOX READINGS ARE WNL. NAD NOTED. IV ABX INFUSING PER ORDER. CALL LIGHT IN REACH.
[2025-02-17] VITALS (9 sets, daily range): BP systolic 117–147; BP diastolic 52–65
--- NOTE | 2025-02-17 00:06 | NUR ---
PATIENT IS RESTING IN BED WITH EYES CLOSED, CPOX READINGS ARE WNL. IV ABX INFUSING PER ORDER. NAD NOTED. CALL LIGHT IN REACH.
[2025-02-17 01:53] LABS: ALBUMIN 2.78 g/dL (3.75-5.01); ALPHA 1 GLOBULIN 0.21 g/dL (0.19-0.46); ALPHA 2 GLOBULIN 0.42 g/dL (0.48-1.05); BETA GLOBULIN 0.86 g/dL (0.48-1.10); GAMMA 1.53 g/dL (0.62-1.51); IMMUNOFIXATION REFLEX Not Done (()); TOTAL PROTEIN,SERUM 5.8 g/dL (6.3-8.2)
--- NOTE | 2025-02-17 02:13 | NUR ---
PATIENT REPOSITIONED ONTO HIGH LEFT SIDE. PATIENT PROVIDED SIPS OF WATER. PATIENT DENIES ANY PAIN. PATIENT REMAINS ON RA. CPOX IN USE. SCDS IN PLACE. BILAT LOW EXT ELEVATED. RUE ELEVATED ON PILLOWS. PATIENT DENIES ANY FURTHER NEEDS. CALL LIGHT IN REACH.
--- NOTE | 2025-02-17 02:18 | NUR ---
FABIENNE IS ASLEEP ON ROOM AIR W/ HOB ALMOST FLAT.
--- NOTE | 2025-02-17 03:02 | NUR ---
PATIENT REPOSITIONED IN BED. PATIENT STATED "I AM JUST UNCOMFORTABLE", PRN MEDICATION GIVEN PER ORDER. PATIENT PROVIDED SIPS OF WATER. PATIENT DENIES ANY FURTHER NEEDS. CALL LIGHT IN REACH.
--- NOTE | 2025-02-17 04:05 | NUR ---
PATIENT IS RESTING IN BED WITH EYES CLOSED, CPOX READINGS ARE WNL. NAD NOTED. CALL LIGHT IN REACH.
[2025-02-17] MEDS ORDERED: CEFEPIME HCL 1 GM VIAL ONE ×3 (05:01→20:48)
--- NOTE | 2025-02-17 05:21 | NUR ---
PATIENT REPOSITIONED IN BED. VITALS TAKEN BY GENERALIST. PATIENT DENIES ANY PAIN OR SOB. PATIENT REMAINS ON RA. PATIENTS AM MEDS GIVEN PER ORDER. PATIENTS AM IV ABX INFUSING PER ORDER. PATIENT PROVIDED FRESH ICE OLAYINKA AND WARM BLANKET. PATIENT DENIES ANY FURTHER NEEDS. CALL LIGHT IN REACH. SCDS IN USE.
[2025-02-17 05:47] LABS: ALBUMIN 1.8 g/dL (3.4-5.0); ALBUMIN/GLOBULIN RATIO 0.6 (1.1-2.4); ANION GAP 11.2 (7-21); BILIRUBIN, TOTAL 1.1 mg/dL (0.2-1.0); BUN/CREATININE RATIO 20.83 (6.0-28.6); CALCIUM 8.8 mg/dL (8.5-10.1); CREATININE, SERUM 1.92 mg/dL (0.70-1.30); POTASSIUM 4.2 mmol/L (3.5-5.1); PROTEIN, TOTAL 4.8 g/dL (6.4-8.2)
[2025-02-17 05:50] LABS: BASOPHILS 0.3 % (0-2); EOSINOPHILS 3.6 % (0-6); HEMATOCRIT 22.7 % (35.0-50.0); HEMOGLOBIN 7.4 g/dL (12.0-18.0); MCH 27.4 (27-36); MCHC 32.7 g/dl (30-36); MCV 83.8 fl (81-99); MONOCYTES 13.6 % (0-12); NEUTROPHILS 68.5 % (39-80); PLATELET COUNT 95 K/uL (140-440); RDW 19.8 (10.5-15.0)
--- NOTE | 2025-02-17 06:04 | NUR ---
PATIENT IS RESTING IN BED WITH EYES CLOSED, CPOX READINGS ARE WNL. NAD NOTED. CALL LIGHT IN REACH.
--- NOTE | 2025-02-17 07:08 | NUR ---
REPORT RECEIVED FROM CLOTH EXAMINER RN DUSTIN. PATIENT IS LYING IN BED WITH EYES CLOSED AND RESPIRATIONS ARE EVEN AND UNLABORED. PATIENT IS ON ROOM AIR WITH THE CPOX AT BEDSIDE. CALL LIGHT AND PERSONAL BELONGINGS ARE WITHIN REACH.
--- NOTE | 2025-02-17 07:50 | NUR ---
0800 AND 0900 MEDICATIONS ADMINISTERED PER THE EMAR. CLAYTON CARE AND MACHUCA CARE COMPLETE. PATIENT TOLERATED WELL. PATIENT WITH HOB ELEVATED AND IS SET UP FOR BREAKFAST. PATIENT STATED NO FURTHER NEEDS AT THIS TIME. CALL LIGHT AND PERSONAL BELONGINGS ARE WITHIN REACH.
--- NOTE | 2025-02-17 08:36 | NUR ---
PATIENT IS LYING IN BED WITH HOB ELEVATED. PATIENT IS ON ROOM AIR WITH THE CPOX AT BEDSIDE. PATIENT DAUGHTER IS SITTING IN THE RECLINER AT BEDSIDE. PATIENT IS EATING BREAKFAST. PATIENT STATED NO FURTHER NEEDS AT THIS TIME. CALL LIGHT AND PERSONAL BELONGINGS ARE WITHIN REACH.
--- NOTE | 2025-02-17 09:29 | NUR ---
PATIENT IS LYING IN BED WITH HOB ELEVATED. PATIENT DAUGHTER REMAINS SITTING AT THE BEDSIDE IN THE RECLINER. DAVIN NELSON IS IN THE ROOM AT THIS TIME. CALL LIGHT AND PERSONAL BELONGINGS ARE WITHIN REACH.
--- NOTE | 2025-02-17 10:00 | NUR ---
PATIENT IS LYING IN BED WITH HOB ELEVATED. PATIENT DAUGHTER IS SITTING IN THE RELCINER AT BEDSIDE. PATIENT IS ALERT AND ORIENTED TIMES FOUR. PATIENT LAST BM WAS 02/16/25. PATIENT IS A MIKHAIL LIFT AND IS WORKING WITH PT/OT. SCD'S IN PLACE. PATIENT IS ON A 60 GRAM DIET WITH ACTIVE BOWEL TONES. PATIENT WITH SOME DISCOMFORT IN THE ABDOMEN AFTER MEALS. PATIENT WITH A MACHUCA CATHETER IN PLACE. CLAYTON CARE AND MACHUCA CARE COMPLETE EARLIER THIS MORNING. PATIENT WITH SOME NAUSEA BUT REFUSED MEDICATION WHEN OFFERED BY THIS RN. PATIENT IS ON ROOM AIR WITH THE CPOX AT BEDSIDE. LUNG SOUNDS ARE CLEAR IN THE UPPER LOBES AND DIMINISHED IN THE BASES BILATERALLY. CARDIAC WITH NORMAL S1 AND S2 ON AUSCULTATION. 3+ PITTING EDEMA NOTED TO THE BLE AND 1+ PITTING EDEMA NOTED TO THE RUE. CAPILLARY REFILL IN THE UPPER AND LOWER EXTREMITIES IS LESS THAN 3 SECONDS BILATERALLY. RADIAL AND PEDAL PULSES ARE STRONG BILATERALLY. SKIN WITH SCATTERED BRUISING NOTED WELL DRY/CALLUSED SKIN ON THE BILATERAL FEET/ANKLES. IV SITE FLUSHED WITH 10 ML NORMAL SALINE AND IS SALINE LOCKED. IV DRESSING IS CLEAN, DRY, AND INTACT. PATIENT WITH GENERALIZED WEAKNESS AND NUMBNESS TO THE RIGHT UPPER AND LOWER EXTREMITY AT BASELINE. REDNESS TO CLAYTON AREA NOTED THIS MORNING. AREA CLEANED WITH FRESH DESENES POWDER IN PLACE. WAFFLE MATTRESS IN PLACE. PATIENT WITH NO COMPLAINTS OF PAIN. PATIENT STATED NO FURTHER NEEDS AT THIS TIME. CALL LIGHT AND PERSONAL BELONGINGS ARE WITHIN REACH.
--- NOTE | 2025-02-17 10:54 | NUR ---
OT NOTIFIED THIS RN OF THE PATIENT TOE BLEEDING AFTER REMOVED THE SOCK POST TRANSFER. THIS RN AND SADIE SOLORIO ASSESSED. ALEVYN PLACE ON THE RIGHT GREAT TOE NAIL AT THIS TIME. PT AND OT REMAIN IN THE ROOM AND SPEAKING WITH THE PATIENT AND FAMILY. THIS RN LEFT THE ROOM.
--- NOTE | 2025-02-17 11:06 | NUR ---
PATIENT IS SITTING IN THE CHAIR WITH BILATERAL LOWER EXTREMITIES ELEVATED. PATIENT IS ON ROOM AIR AND CPOX AT BEDSIDE. PATIENT IS SITTING ON THE COUCH AND TALKING TO THE PATIENT. CALL LIGHT AND PERSONAL BLEONGINGS ARE WITHIN REACH.
--- NOTE | 2025-02-17 11:15 | NUR ---
INTO SEE PATIENT. PATIENT SITTING IN BED WITH DAUGHTER AT BEDSIDE. PATIENT STILL WILLING TO GO TO [facility]. PATIENT WILL NEED WC VAN TO TRANSPORT. NO FUTHER CM NEEDS AT THIS TIME.
--- NOTE | 2025-02-17 12:11 | NUR ---
1200 INSULIN ADMINISTERED PER THE EMAR. PATIENT IS SITTING IN THE CHAIR WITH BILATERAL LOWER EXTREMITIES ELEVATED. DAVIN MARTIN IS IN THE ROOM AT THIS TIME AND CHANGING THE BEDDING. FRESH ICE WATER PROVIDED. PATIENT STATED NO FURTHER NEEDS AT THIS TIME. CALL LIGHT AND PERSONAL BELONGINGS ARE WITHIN REACH.
[2025-02-17 14:23] LABS: BASOPHILS 0.4 % (0-2); EOSINOPHILS 4.3 % (0-6); HEMATOCRIT 23.8 % (35.0-50.0); HEMOGLOBIN 7.7 g/dL (12.0-18.0); LYMPHOCYTES 11.6 % (24-44); MCH 27.4 (27-36); MCHC 32.3 g/dl (30-36); MCV 84.9 fl (81-99); NEUTROPHILS 72.7 % (39-80); PLATELET COUNT 92 K/uL (140-440); RDW 19.7 (10.5-15.0)
--- NOTE | 2025-02-17 14:38 | NUR ---
PATIENT IS SITTING IN THE CHAIR WITH BILATERAL LOWER EXTREMITIES ELEVATED. PATIENT WITH EYES OPEN AND RESPIRATIONS ARE EVEN AND UNLABORED. CPOX AT BEDSIDE. TV IS ON. CALL LIGHT AND PERSONAL BELONGINGS ARE WITHIN REACH.
--- NOTE | 2025-02-17 15:21 | NUR ---
PATIENT IS SITTING IN THE CHAIR WITH BILATERAL LOWER EXTREMITIES ELEVATED AND THE HEAD OF CHAIR PUSHED BACK. PATIENT RATED PAIN 2/10 IN THE LOW BACK. PATIENT REFUSED ANYTHING FOR PAIN WHEN OFFERED BY THIS RN. IV SITE FLUSHED WITH 10 ML NORMAL SALINE. IV CEFEPIME IS INFUSING AT THIS TIME. IV DRESSING IS CLEAN, DRY, AND INTACT. BOWEL TONES ARE ACTIVE IN ALL FOUR QUADRANTS. LUNGS SOUNDS ARE CLEAR THROUGHOUT. PATIENT IS ON ROOM AIR WITH THE CPOX AT BEDSIDE. PATIENT STATED NO FURTHER NEEDS AT THIS TIME. CALL LIGHT AND PERSONAL BELONGINGS ARE WITHIN REACH.
--- NOTE | 2025-02-17 16:32 | NUR ---
PATIENT IS LYING IN THE CHAIR WITH EYES CLOSED AND RESPIRATIONS ARE EVEN AND UNLABORED. PATIENT IS ON ROOM AIR WITH THE CPOX AT BEDSIDE. CALL LIGHT AND PERSONAL BELONGIGNS ARE WITHIN REACH.
--- NOTE | 2025-02-17 17:50 | NUR ---
PATIENT IS SITTING UPRIGHT IN THE CHAIR WITH BILATERAL LOWER EXTREMITIES ELEVATED. 1700 MEDICATIONS ADMINISTERED PER THE EMAR. ENSURE AND MILK PROVIDED TO THE PATIENT AT THIS TIME. CHICKEN CUT UP FOR PATIENT. IV CEFEPIME INFUSION COMPLETE. IV SITE FLUSHED WITH 10 ML NORMAL SALINE AND IS SALINE LOCKED. IV DRESSING IS CLEAN, DRY, AND INTACT. PATIENT IS ON ROOM AIR WITH THE CPOX AT BEDSIDE. PATIENT STATED NO FURTHER NEEDS AT THIS TIME. CALL LIGHT AND PERSONAL BELONGINGS ARE WITHIN REACH.
--- NOTE | 2025-02-17 18:35 | NUR ---
PATIENT IS SITTING IN THE CHAIR WITH BILATERAL LOWER EXTREMITIES ELEVATED. PATIENT IS EATING DINNER AT THIS TIME. PATIENT IS ON ROOM AIR WITH THE CPOX AT BEDSIDE. PATIENT IS SITTING ON THE COUCH. CALL LIGHT AND PERSONAL BELONGINGS ARE WITHIN REACH.
--- NOTE | 2025-02-17 19:31 | NUR ---
RECEIVED REPORT FROM FAM RN. PATIENT SITTING UPRIGHT IN CHAIR, EATING. DENIES NEEDS, BED ZEROED. FAMILY AT BEDSIDE. CALL LIGHT IN REACH.
--- NOTE | 2025-02-17 21:05 | NUR ---
PATIENT MOVED FROM CHAIR TO BED VIA MIKHAIL LIFT. DEPENDS CHANGED, MACHUCA CATH EMPTIED. SCHEDULED MED GIVEN PER ORDER. BOOSTED IN BED. PATIENT GIVEN FRESH WARM BLANKETS. DENIES FURTHER NEEDS, CALL LIGHT IN REACH.
--- NOTE | 2025-02-17 22:21 | NUR ---
PATIENT RESTING WITH EYES CLOSED, RESP. EVEN AND UNLABORED. NO NEEDS IDENTIFIED, IV MEDICATION INFUSING PER ORDER. CALL LIGHT IN REACH.
[2025-02-18] VITALS (10 sets, daily range): BP systolic 127–139; BP diastolic 51–63
--- NOTE | 2025-02-18 00:02 | NUR ---
PATIENT REPOSITIONED ONTO LEFT SIDE AND BOOSTED IN BED. NO FURTHER NEEDS IDENTIFIED, CALL LIGHT IN REACH.
--- NOTE | 2025-02-18 02:24 | NUR ---
PATIENT RESTING WITH EYES CLOSED, RESP EVEN AND UNLABORED. CPOX AT BEDSIDE. NO NEEDS IDENTIFIED. CALL LIGHT IN REACH.
--- NOTE | 2025-02-18 04:41 | NUR ---
ROUNDED ON PT. PT RESTING WITH EYES CLOSED, RESP EVEN AND UNLABORED. CPOX AT BEDSIDE, ON RA. NO NEEDS IDENTIFIED, CALL LIGHT IN REACH.
[2025-02-18 05:40] LABS: BASOPHILS 0.7 % (0-2); EOSINOPHILS 5.9 % (0-6); HEMATOCRIT 21.8 % (35.0-50.0); HEMOGLOBIN 7.2 g/dL (12.0-18.0); MCH 27.6 (27-36); MCHC 32.8 g/dl (30-36); MCV 84.2 fl (81-99); MONOCYTES 13.1 % (0-12); NEUTROPHILS 62.3 % (39-80); PLATELET COUNT 94 K/uL (140-440); RBC 2.59 M/ul (4.3-5.7); RDW 20.1 (10.5-15.0)
[2025-02-18] MEDS ORDERED: CEFEPIME HCL 1 GM VIAL ONE ×3 (05:42→21:18)
[2025-02-18 05:56] LABS: ALBUMIN 1.8 g/dL (3.4-5.0); ALBUMIN/GLOBULIN RATIO 0.58 (1.1-2.4); ANION GAP 9.3 (7-21); BILIRUBIN, TOTAL 0.7 mg/dL (0.2-1.0); BUN/CREATININE RATIO 23.27 (6.0-28.6); CALCIUM 8.6 mg/dL (8.5-10.1); CREATININE, SERUM 1.59 mg/dL (0.70-1.30); POTASSIUM 4.3 mmol/L (3.5-5.1); PROTEIN, TOTAL 4.9 g/dL (6.4-8.2)
--- NOTE | 2025-02-18 06:09 | NUR ---
VS OBTAINED AND RECORDED. SCHEDULED MEDS ADMIN PER ORDER. MACHUCA CATH EMPTIED. PATIENT BOOSTED IN BED AND REPOSITIONED WITH HOB ELEVATED TO SEMI-FOWLERS POSITION. PATIENT DENIES FURTHER NEEDS, CALL LIGHT IN REACH.
--- NOTE | 2025-02-18 07:20 | NUR ---
REPORT FROM JENNIFER NOEL.
--- NOTE | 2025-02-18 08:05 | NUR ---
PATIENT IN BED AT THIS TIME. UNIT COORDINATOR CHARTED PATIENTS BLOOD SUGAR AND THEN DID HOURLY ROUNDS. CALL LIGHT WITHIN REACH, NO FURTHER NEEDS AT THIS TIME.
--- NOTE | 2025-02-18 08:09 | NUR ---
MORNING ASSESSEMENT IS COMPLETE. PATIENT DENIES PAIN, SITTING UP IN BED IN ANTICIPATION OF BREAKFAST. ARM AND LEG EDEMA IS UNCHANGED. MACHUCA CATHETER INTACT AND DRAINING CLEAR YELLOW URINE. PATIENT IS ON ROOM AIR, LUNGS ARE DIM IN BASES, FC NOTED IN UPPER LOBES, PATIENT HAS OCCASIONAL COUGH. 94% ON ROOM AIR. PATIENT IS A/O X4. NO OTHER NEEDS AT THIS TIME.
--- NOTE | 2025-02-18 08:38 | PATH ---
[facility] [address] [facility] [place], [place] [address] Signed SPECIMEN(S): A ANTRUM BIOPSY SPECIMEN(S): B COLON POLYP AT 7 CM SPECIMEN SOURCE: A. ANTRUM BIOPSY B. COLON POLYP AT 7 CM CLINICAL HISTORY: History of anemia, colitis, gastroparesis, diverticulosis FINAL PATHOLOGIC DIAGNOSIS: A. 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 Colon, 7 cm, polypectomy: - Tubular adenoma BRP MICROSCOPIC EXAMINATION: Histologic sections of all submitted blocks are examined by light microscopy. These findings, together with the gross examination, support the pathologic diagnosis. GROSS DESCRIPTION: A. The specimen, labeled and designated "Markus, antrum biopsy," is received in formalin and consists of one baca soft tissue fragment, 0.2 cm. Entirely submitted in (A1). B. The specimen, labeled and designated "Markus, colon polyp at 7 cm," is received in formalin and consists of a baca polypoid piece of tissue (0.9 x 0.6 x 0.5 cm). The possible resection margin is inked blue, and the tissue is quadrisected to reveal baca soft cut surfaces. The specimen is submitted entirely in cassette (B1). VB (under the direct supervision of a pathologist) The Gross Description was prepared using a voice recognition system. The report was reviewed for accuracy; however, sound-alike word errors, addition and/or deletions may occur. If there is any question about this report, please contact Client Services. ADDITIONAL NOTES: Immunohistochemical and/or in situ hybridization studies if performed in this case included appropriate positive controls that reacted as expected. This PATIENT NAME: FABIENNE VELÁSQUEZ PATHOLOGY DATE OF : 52 REPORT #: [id number] PHYSICIAN: CLAIRE ANDRADE PCP: MISSY LUNA DO REPORT IS CONFIDENTIAL AND NOT TO BE RELEASED WITHOUT AUTHORIZATION [facility] [address] [facility] [place] [address] Signed test was developed and its performance characteristics determined by [facility]. It has not been cleared or approved by the U.S. Food and Drug Administration. The FDA has determined that such clearance or approval is not necessary. This test is used for clinical purposes. It should not be regarded as investigational or for research. [facility] is certified under the Clinical Laboratory Improvement Amendments of 1988 (CLIA) as qualified to perform high complexity clinical laboratory testing. PERFORMING LABORATORY: Technical component was performed by [facility], [address] [place] [id number] (CLIA# [id number]). Professional interpretation was performed by [facility] - [facility], [address] [place] [address] (CLIA#: [id number]). Diagnostician: Luke Fiore MD Pathologist Electronically Signed 02/18/2025 Copies: ~ PATIENT NAME: FABIENNE VELÁSQUEZ PATHOLOGY DATE OF : 52 REPORT #: [id number] PHYSICIAN: CLAIRE ANDRADE PCP: MISSY LUNA DO REPORT IS CONFIDENTIAL AND NOT TO BE RELEASED WITHOUT AUTHORIZATION
--- NOTE | 2025-02-18 08:48 | NUR ---
IV CEFAPIME INFUSING FOR ONE MORE HOUR, THEN PATIENT TO HAVE IRON INFUSION.
--- NOTE | 2025-02-18 09:30 | NUR ---
Spoke with Eder. He plans on return to [facility] where cleared medically. Pt denies needs. Pt was discussed in 8:30 meeting is cleared for dc, but he does not have auth from [facility] insurance. I spoke with with Sheryl from [facility] and this could be 1-[address] Lopez was updated.
--- NOTE | 2025-02-18 09:33 | NUR ---
PATIENT IN BED AT THIS TIME. COMPANY TRUCK DRIVER CHARTED VITALS AND I&O'S. COMPANY TRUCK DRIVER ALSO PROVIDED PATIENT WITH CATH CARE. CALL LIGHT WITHIN REACH, NO FURTHER NEEDS AT THIS TIME.
--- NOTE | 2025-02-18 10:30 | NUR ---
Upon entering the room I find Eder in his bedside chair where he appears to be watching T.V. He does have oxygen per [place], but does not appear to be in any respiratory distress at this time. After introducing myself to Eder, along with my role, I explain the [facility] letter to him, and the plan for his upcoming discharge to [facility]. Eder is aware of this plan and agreeable, stating that he has "been to [place] before". Eder denies questions, he does sign the IMM letter, and a signed copy of the letter is provided to him. Eder is able to answer questions appropirately and he is oriented to person, place and time.
--- NOTE | 2025-02-18 10:38 | NUR ---
PATIENT UP TO CHAIR WITH PHYSICAL THERAPY, MIKHAIL TRANSFER.
--- NOTE | 2025-02-18 12:15 | PATH ---
[facility] [address] [place] [address] Signed SPECIMEN(S): A DESCENDING POLYP, 50 CM SPECIMEN(S): B CECUM POLYP SPECIMEN(S): C ILEOCECAL VALVE POLYP SPECIMEN(S): D CECUM POLYP SPECIMEN(S): E ASCENDING POLYP SPECIMEN(S): F HEPATIC FLEXURE POLYP SPECIMEN SOURCE: A. DESCENDING POLYP, 50 CM B. CECUM POLYP C. ILEOCECAL VALVE POLYP D. CECUM POLYP E. ASCENDING POLYP F. HEPATIC FLEXURE POLYP CLINICAL HISTORY: History of anemia. Post: Long redundant, torturous sigmoid, diverticulosis polyps FINAL PATHOLOGIC DIAGNOSIS: A. Descending polyp at 50 cm: - No tissue present within the specimen container. B. Cecum polyp: - Tubular adenoma (multiple fragments). C. Ileocecal valve polyp: - Tubular adenoma with extensive mucosal ulceration and acute lamina propria inflammation. D. Cecum polyp: - Tubular adenoma (one fragment). E. Ascending polyp: - Tubular adenoma (multiple fragments). F. Hepatic flexure polyp: - Tubular adenoma (one fragment). JVR:mark MICROSCOPIC EXAMINATION: Histologic sections of all submitted blocks are examined by light microscopy. These findings, together with the gross examination, support the pathologic diagnosis. GROSS DESCRIPTION: PATIENT NAME: FABIENNE VELÁSQUEZ PATHOLOGY DATE OF : 52 REPORT #: [id number] PHYSICIAN: CLAIRE PATHOLOGY PCP: MISSY LUNA DO REPORT IS CONFIDENTIAL AND NOT TO BE RELEASED WITHOUT AUTHORIZATION [facility] [address] [facility] [place] [place] [address] Signed A. The specimen, labeled and designated "Markus, D, descending polyp, 50 cm," is received in formalin and consists of No tissue fragments grossly identified. B. The specimen, labeled and designated "Markus, D, cecum polyp," is received in formalin and consists of five baca soft tissue fragments, ranging from 0.1-0.8 cm. Entirely submitted in (B1). C. The specimen, labeled and designated "Markus, D, ileocecal valve polyp," is received in formalin and consists of four baca soft tissue fragments, ranging from 0.1-0.9 cm. Entirely submitted in (C1). D. The specimen, labeled and designated "Markus, D, cecum polyp #2," is received in formalin and consists of one baca soft tissue fragment, 0.3 cm. Entirely submitted in (D1). E. The specimen, labeled and designated "Markus, D, ascending polyp," is received in formalin and consists of six baca soft tissue fragments, ranging from 0.3-1.3 cm. Entirely submitted in (E1). F. The specimen, labeled and designated "Markus, D, hepatic flexure polyp," is received in formalin and consists of one baca soft tissue fragment, 0.3 cm. Entirely submitted in (F1). AB (under the direct supervision of a pathologist) The Gross Description was prepared using a voice recognition system. The report was reviewed for accuracy; however, sound-alike word errors, addition and/or deletions may occur. If there is any question about this report, please contact Client Services. PERFORMING LABORATORY: Technical component was performed by [facility], [address] [place] [address] (CLIA# [id number]). Professional interpretation was performed by [facility] - [facility], [address] [place] [address] [address] [place] [address] (CLIA#: [id number]). Diagnostician: Maximiliano Stanley MD Pathologist Electronically Signed 02/18/2025 Copies: ~ PATIENT NAME: MARKUSFABIENNE THIAGO PATHOLOGY DATE OF : 52 REPORT #: [id number] PHYSICIAN: CLAIRE ANDRADE PCP: MISSY LUNA DO REPORT IS CONFIDENTIAL AND NOT TO BE RELEASED WITHOUT AUTHORIZATION
--- NOTE | 2025-02-18 12:29 | NUR ---
PATIENT IS SITTING UP TO CHAIR, REPORTS FEELING "DIZZY, LIKE I'M GOING TO PASS OUT." VITALS ARE STABLE. PATIENT REPORTS THAT HE HAS THESE EPISODES DAILY. DISCUSSED WITH PATIENT MEDICATIONS FOR MOTION SICKNESS AND PATIENT DENIES WANTING ANY OF THESE THINGS. 3 UNITS ON INSULIN GIVEN TO LEFT ARM FOR BG OF 179. PO FLAGYL GIVEN WITH LUNCH. NO OTHER NEEDS AT THIS TIME.
--- NOTE | 2025-02-18 12:53 | NUR ---
CALL TO FUNMILAYO, DAUGHTER, TO UPDATE HER ON PATIENT.
[2025-02-18 13:25] LABS: BASOPHILS 0.7 % (0-2); EOSINOPHILS 4.6 % (0-6); HEMATOCRIT 26.1 % (35.0-50.0); HEMOGLOBIN 8.4 g/dL (12.0-18.0); LYMPHOCYTES 13.2 % (24-44); MCH 27.9 (27-36); MCHC 32.2 g/dl (30-36); MCV 86.6 fl (81-99); NEUTROPHILS 70.5 % (39-80); PLATELET COUNT 118 K/uL (140-440); RBC 3.01 M/ul (4.3-5.7); RDW 20.4 (10.5-15.0)
--- NOTE | 2025-02-18 13:45 | NUR ---
IV CEFAPIME INFUSING FOR 4 HOURS.
--- NOTE | 2025-02-18 13:49 | NUR ---
PATIENT IN BED AT THIS TIME. CHARGER OPERATOR HELPER CHARTED VITALS AND I&O'S. CALL LIGHT WITHIN REACH, NO FURTHER NEEDS AT THIS TIME.
--- NOTE | 2025-02-18 15:10 | NUR ---
PATIENT IS SITTING UP IN CHAIR, VISITOR IN ROOM. PATIENT ENDORSES THAT HE STILL FEELS DIZZY.
--- NOTE | 2025-02-18 17:00 | NUR ---
REPORT RECIEVED FROM SADIE SOLORIO. PT SITTING UP IN CHAIR WITH FAMILY IN ROOM. PT HAS NO PAIN AT THIS TIME CALL LIGHT IN REACH.
--- NOTE | 2025-02-18 18:15 | NUR ---
PT SITTING UP IN CHAIR WITH FAMILY IN ROOM. PT IS EATING DINNER AT THIS TIME AND HAS NO COMPLAINTS. PT HAS CALL LIGHT IN REACH.
--- NOTE | 2025-02-18 18:29 | NUR ---
PATIENT IN CHAIR AT THIS TIME. MEDICAL SPECIALIST CHARTED VITALS AND I&O'S. CALL LIGHT WITHIN REACH, NO FURTHER NEEDS AT THIS TIME.
--- NOTE | 2025-02-18 19:21 | NUR ---
RECEIVED REPORT FROM FAM RN, PATIENT SITTING UPRIGHT IN CHAIR. FAMILY AT BEDSIDE. PATIENT DENIES ANY NEEDS, CALL LIGHT IN REACH.
--- NOTE | 2025-02-18 21:11 | NUR ---
PATIENT TRANSFERRED BACK TO BED USING MIKHAIL LIFT, BRIEF CHANGED AND CHUX UNDER PATIENT CHANGED, MACHUCA CATH EMPTIED, CATHETER CARE COMPLETED. PT BOOSTED IN BED, BED ALARM ON. VS OBTAINED AND RECORDED. FRESH WATER PROVIDED. CALL LIGHT IN REACH, DENIES FURTHER NEEDS.
--- NOTE | 2025-02-18 22:50 | NUR ---
PATIENT RESTING WITH EYES CLOSED, RESP EVEN AND UNLABORED, NO NEEDS IDENTIFIED, CALL LIGHT IN REACH.
[2025-02-19] VITALS (10 sets, daily range): BP systolic 113–133; BP diastolic 50–63
--- NOTE | 2025-02-19 00:49 | NUR ---
PATIENT RESTING WITH EYES CLOSED, RESP EVEN AND UNLABORED. NO NEEDS IDENTIFIED, BED ALARM ON. CALL LIGHT IN REACH.
--- NOTE | 2025-02-19 02:24 | NUR ---
PATIENT REPOSITIONED ONTO RIGHT SIDE, RESP EVEN AND UNLABORED. PATIENT DENIES OTHER NEEDS, CALL LIGHT IN REACH.
--- NOTE | 2025-02-19 04:52 | NUR ---
PATIENT RESTING WITH EYES CLOSED, RESP EVEN AND UNLABORED. CPOX AT BEDSIDE. NO NEEDS IDENTIFIED, CALL LIGHT IN REACH.
[2025-02-19 05:33] LABS: BASOPHILS 0.8 % (0-2); EOSINOPHILS 6.7 % (0-6); HEMATOCRIT 22.1 % (35.0-50.0); HEMOGLOBIN 7.2 g/dL (12.0-18.0); MCH 27.6 (27-36); MCHC 32.6 g/dl (30-36); MCV 84.7 fl (81-99); MONOCYTES 17.4 % (0-12); NEUTROPHILS 54.1 % (39-80); PLATELET COUNT 98 K/uL (140-440); RBC 2.61 M/ul (4.3-5.7); RDW 20.1 (10.5-15.0)
[2025-02-19 05:51] LABS: ALBUMIN 1.7 g/dL (3.4-5.0); ALBUMIN/GLOBULIN RATIO 0.55 (1.1-2.4); ANION GAP 10.1 (7-21); BILIRUBIN, TOTAL 0.7 mg/dL (0.2-1.0); BUN/CREATININE RATIO 24.16 (6.0-28.6); CALCIUM 8.6 mg/dL (8.5-10.1); CREATININE, SERUM 1.49 mg/dL (0.70-1.30); POTASSIUM 4.1 mmol/L (3.5-5.1); PROTEIN, TOTAL 4.8 g/dL (6.4-8.2)
[2025-02-19] MEDS ORDERED: CEFEPIME HCL 1 GM VIAL ONE ×3 (05:56→19:58)
--- NOTE | 2025-02-19 06:32 | NUR ---
VS OBTAINED AND RECORDED. BED WEIGHT OBTAINED, PATIENT REPOSITIONED. SCHEDULED MEDICATIONS ADMIN. DENIES NEEDS, CALL LIGHT IN REACH.
--- NOTE | 2025-02-19 07:18 | NUR ---
REPORT RECEIVED FROM SADIE LÓPEZ AND SADIE LEDESMA. PATIENT RESTING IN BED WITH HIS EYES CLOSED. EVEN AND UNLABORED RESPIRATIONS NOTED. CALL LIGHT AND PERSONAL BELONGINGS WITHIN REACH.
--- NOTE | 2025-02-19 07:51 | NUR ---
PATIENT IN BED AT THIS TIME. POWER PLANT OPERATOR DID HOURLY ROUNDS. CALL LIGHT WITHIN REACH, NO FURTHER NEEDS AT THIS TIME.
--- NOTE | 2025-02-19 08:00 | NUR ---
PATIENT MEDICATED PER EMAR. BREAKFAST TRAY SET UP AND CUT UP FOR PATIENT. PATIENT SITTING UP IN BED EATING BREAKFAST. PATIENT WITHOUT FUTHER NEEDS AT THIS TIME. CALL LIGHT AND PERSONAL BELONGINGS WITHIN REACH.
[2025-02-19] MEDS ORDERED: FLUOXETINE HCL 10 MG CAP PO SCH (09:00)
--- NOTE | 2025-02-19 09:13 | NUR ---
PT/OT IN WITH PATIENT AT THIS TIME. NEW ALLEVYN PLACED ON PATIENT'S RIGHT LOWER GLUTEAL FOLD FOR A RAISED, DRY, CALLUS AREA APPROX. NO OPEN AREA OR DRAINAGE NOTED TO AREA.
--- NOTE | 2025-02-19 09:52 | NUR ---
PATIENT IN CHAIR AT THIS TIME. HOCKEY PLAYER CHARTED VITALS AND I&O'S. CALL LIGHT WITHIN REACH, NO FURTHER NEEDS AT THIS TIME.
--- NOTE | 2025-02-19 10:15 | NUR ---
Spoke with Eder as he is finishing his PT/OT visit. He denies needs. Cont. to plan to dc to [place] when he met medical criteria. Pt was discussed in 830 meeting and dc will be determined by lab results this afternoon and also if [facility] have authorized payment for SFN. Pt has not eaten any breakfast and OT is discussing this with him. He shakes his head, "no" when she offers him a bite. Pt does agree to a protein Max shake and a shake was given.
--- NOTE | 2025-02-19 10:18 | NUR ---
PATIENT IS SITTING UPRIGHT IN THE CHAIR WITH BILATERAL LOWER EXTREMITIES ELEVATED. PATIENT IS ON ROOM AIR AND THE CPOX IS AT BEDSIDE. CHAPLAN IS IN THE ROOM AT THIS TIME. LINENS CHANGED AT THIS TIME. CALL LIGHT AND PERSONAL BELONGINGS ARE WITHIN REACH.
--- NOTE | 2025-02-19 10:40 | NUR ---
PATIENT SITTING UP IN CHAIR VISITING WITH THE WORM RAISER. IV ABX COMPLETED. IV FLUSHED WITH 10ML OF NS, DRESSING INTACT. CALL LIGHT AND PERSONAL BELONGINGS WITHIN REACH.
--- NOTE | 2025-02-19 10:46 | NUR ---
VISITED DURING SPIRITUAL CARE ROUNDS. PT TALKED EXTENSIVELY OF PAST, RELAYED STORIES OF FAMILY EXPERIENCES AND MOVES, TALKED OF FATHER'S SUDDEN AT RELATIVELY YOUNG AGE, REGRETS. LITTLE TALK OF PRESENT OR HIS IMMEDIATE FAMILY OR CURRENT SITUATION. EXPRESSED RESERVATION ABOUT [facility] BECAUSE HIS MOTHER THERE BUT DID ADMIT HIS PREVIOUS STAYS HAD RENDERED HIM STRONGER. ENGINEERING SURVEYOR PROVIDED SUPPORTIVE PRESECE, HOSPITALITY, PRAYER. PT EXPRESSED GRATITUDE FOR VISIT.
--- NOTE | 2025-02-19 10:50 | NUR ---
PATIENT IS ALERT AND ORIENTED X4. 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 CARDIAC IS WITH NORMAL S1-S2, PULSES ARE STRONG THROUGHOUT. CAPILLARY REFILL IS <3 SECONDS IN BILATERAL UPPER AND LOWER EXTREMETIES. PATIENT REPORT NUMBNESS AND TINGLING IN RIGHT UPPER AND LOWER EXTREMTIES THAT IS CHRONIC SINCE CVA. PATIENT IS WITH 1+ NON PITTING EDEMA TO BILATERAL THIGHS/CALVES, 3+ NON-PITTNG EDEMA TO BILATERAL ANKLES/FEET, AND WITH 1+ PITTING EDEMA TO RIGHT ELBOW. PATIENT IS 96% ON ROOM AIR. LUNG SOUNDS ARE CLEAR IN BILATERAL UPPER LOBES AND LEFT LOWER LOBE, DIMINISHED IN THE RIGHT LOWER LOBE. PATIENT IS ON 60G CARB DIET WITH ACTIVE BOWEL TONES IN ALL 4 QUADRANTS. PATIENT REPORTS LAST BOWEL MOVEMENT WAS EARLY THIS MORNING WITH PREVIOUS SHIFT. PATIENT HAS A MACHUCA DUE TO CHRONIC RETENTION. URINE IS CLEAR YELLOW. PATIENT REPORTS 2/10 PAIN IN RIGHT HIP, BUT PATIENT DENIES ANY PAIN MEDICATION AND STATES THE PAIN IS TOLERABLE AT THIS TIME. PATIENT HAS SCATTERED BRUISES AND SCABS THROUGHOUT. PATIENT HAS DRY, CALLUS AREA TO BILATERAL FEET AND TO RIGHT GLUTEAL FOLD. IV TO LFA FLUSHED WITH 10ML OF NS AND IS SALINE LOCKED, DRESSING INTACT. PATIENT ALSO HAS REDDENED AREA TO [place] AREA THAT HAS IMPROVEMENT FROM THIS WEEKEND, DESENEX POWDER APPLIED. FRESH WATER GIVEN TO PATIENT. PATIENT WITHOUT FURTHER NEEDS AT THIS TIME. CALL LIGHT AND PERSONAL BELONGINGS WITHIN REACH.
--- NOTE | 2025-02-19 11:15 | NUR ---
PATIENT SITTING UP IN CHAIR WATCHING TV. PATIENT DENIES ANY NEEDS AT THIS TIME. CALL LIGHT AND PERSONAL BELONGINGS WITHIN REACH.
--- NOTE | 2025-02-19 12:12 | NUR ---
PATIENT MEDICATED PER EMAR. PATIENT SITTING UP IN CHAIR EATING LUNCH. FOOD CONTAINERS OPENED FOR PATIENT. PATIENT DENIES ANY FURTHER NEEDS AT THIS TIME. CALL LIGHT AND PERSONAL BELONGINGS WITHIN REACH.
[2025-02-19 13:16] LABS: EOSINOPHILS 4.9 % (0-6); HEMATOCRIT 26.1 % (35.0-50.0); HEMOGLOBIN 8.6 g/dL (12.0-18.0); LYMPHOCYTES 15.2 % (24-44); MCH 28.3 (27-36); MCHC 32.9 g/dl (30-36); MCV 85.9 fl (81-99); MONOCYTES 14.5 % (0-12); NEUTROPHILS 64.4 % (39-80); PLATELET COUNT 107 K/uL (140-440); RBC 3.04 M/ul (4.3-5.7); RDW 20.2 (10.5-15.0)
--- NOTE | 2025-02-19 13:26 | NUR ---
PATIENT SITTING UP IN CHAIR USING ACAPELLA AND WATCHING TV. CALL LIGHT AND PERSONAL BELONGINGS WITHIN REACH.
--- NOTE | 2025-02-19 13:33 | NUR ---
PATIENT IN CHAIR AT THIS TIME. OFFICE SPEC CHARTED VITALS AND I&O'S. CALL LIGHT WITHIN REACCH NO FURTHER NEEDS AT THIS TIME.
[2025-02-19] MEDS ORDERED: CEFEPIME HCL 1 GM in SODIUM CHLORIDE 0.9% 100 ML IV SCH (14:00)
--- NOTE | 2025-02-19 14:00 | NUR ---
PT SITTING IN CHAIR WATCHING TV. CALL LIGHT WITHIN REACH, NO REQUESTS AT THIS TIME.
--- NOTE | 2025-02-19 14:35 | NUR ---
PATIENT SITTING UP IN CHAIR WATCHING TV WHEN THIS RN ENTERED ROOM. PATIENT REPORTS HE IS HAVING SOME PAIN AND STATES HE WOULD LIKE TO GET BACK TO BED. PATIENT MEDICATED PER CALOS. BINU RN, BLAINE, RN, DAVIN DIAZ, AND THIS RN TRANSFERED PATIENT BACK TO BED. PATIENT WITHOUT FURTHER NEEDS AT THIS TIME. CALL LIGHT AND PERSONAL BELONGINGS WITHIN REACH.
--- NOTE | 2025-02-19 14:50 | NUR ---
PATIENT FOCUS ASSESSMENT COMPLETED. PATIENT REPORTS 5/10 PAIN. PAIN MEDICATION ADMINISTERED AND PATIENT TRANSFERED BACK TO BED FROM CHAIR. PATIENT IS ON ROOM AIR WITH CLEAR LUNG SOUNDS ALL THROUGHOUT. PATIENT DENIES ANY SOB. IV FLUSHED WITH 10ML OF NS, DRESSING INTACT. PATIENT WITHOUT FURTHER NEEDS AT THIS TIME. CALL LIGHT AND PERSONAL BELONGINGS WITHIN REACH.
--- NOTE | 2025-02-19 15:01 | NUR ---
PATIENT SITTING UP IN BED WATCHIN TV AND VISITING WITH VISITOR. PATIENT DENIES ANY NEEDS AT THIS TIME. CALL LIGHT AND PERSONAL BELONGINGS WITHIN REACH.
--- NOTE | 2025-02-19 16:11 | NUR ---
PATIENT RESTING IN BED VISITING WITH VISITOR AT BEDSIDE. PATIENT WITHOUT ANY NEEDS AT THIS TIME. CALL LIGHT AND PERSONAL BELONGINGS WITHIN REACH.
--- NOTE | 2025-02-19 17:00 | NUR ---
PATIENT SITTING UP IN BED EATING DINNER. DAUGHTER AT BEDSIDE. HOT TEA AND MILK PROVIDED. PATIENT DENIES ANY OTHER NEEDS AT THIS TIME. CALL LIGHT AND PERSONAL BELONGINGS WITHIN REACH.
--- NOTE | 2025-02-19 17:08 | NUR ---
NOTIFIED OF PATIENT DAUGHTER HERE. STATED HE WOULD COME OVER IN A LITTLE BIT. NO NEW ORDERS AT THIS TIME. CALL LIGHT AND PERSONAL BELONGINGS ARE WITHIN REACH.
--- NOTE | 2025-02-19 17:13 | NUR ---
DR UP AT BEDSIDE UPDATING FAMILY
--- NOTE | 2025-02-19 18:19 | NUR ---
PATIENT SITTING UP IN BED FINSIHING DINNER, VISITING WITH HIS AND DAUGHTER, AND WATCHING TV. IV ABX COMPLETED, IV FLUSHED WITH 10ML OF NS AND IS SALINE LOCKED; DRESSING INTACT. PATIENT WITHOUT FURTHER NEEDS AT THIS TIME. CALL LIGHT AND PERSONAL BELONGINGS WITHIN REACH.
--- NOTE | 2025-02-19 19:25 | NUR ---
PATIENT RESTING IN BED, TALKING WITH FAMILY. DENIES ANY NEEDS, CALL LIGHT IN REACH.
--- NOTE | 2025-02-19 20:50 | NUR ---
SHIRT HEMMER, CLINICAL RESEARCH SPEC AND ZACHERY RN OBTAINED VITALS AND I&O. PT STATED HE HAD A BM. CHUCKS PAD AND BREIF CHANGED. CATH CARE COMPLETED. PT STATES NO FURTHER NEEDS AT THIS TIME. CALL LIGHT WITHIN REACH AND RN REMAINS IN ROOM
--- NOTE | 2025-02-19 23:07 | NUR ---
PATIENT RESTING WITH EYES CLOSED, RESP EVEN AND UNLABORED. NO NEEDS IDENTIFIED, CALL LIGHT IN REACH
--- NOTE | 2025-02-20 00:48 | NUR ---
IV MEDICATION INFUSION COMPLETE, PATIENT SALINE LOCKED. SMALL BM SMEAR NOTED, PATIENT WIPED, FRESH BRIEF PUT ON PATIENT WITH DAVIN PERRY. PATIENT REQUESTED PRN MEDICATION FOR SLEEP. TALKED WITH PATIENT ABOUT HIS FEAR OF LEAVING FOR [place] TOMORROW. PATIENT FEELS REASSURED WITH PLAN AND IS OKAY WITH PLAN, FEELS THAT HE IS JUST TIRED AND NEEDS SOME GOOD SLEEP. PATIENT DENIES OTHER NEEDS, CALL LIGHT IN REACH.
[2025-02-20] MEDS ORDERED: CEFEPIME HCL 1 GM VIAL ONE ×2 (02:20→07:55)
--- NOTE | 2025-02-20 02:36 | NUR ---
PATIENT WOKE TO RN ENTERING ROOM, RESP EVEN AND UNLABORED. SCHEDULED MED ADMINISTERED PER ORDER. PATIENT DENIES NEEDS, CALL LIGHT IN REACH
--- NOTE | 2025-02-20 04:23 | NUR ---
RT FOUND FABIENNE W/O A CPOX ON AND ON ROOM AIR. RT DC'ING CPOX ORDER.
--- NOTE | 2025-02-20 04:35 | NUR ---
PATIENT WOKE TO RN ENTERING ROOM, REPORTS NO NEEDS. CONTINUES TO REST OFF AND ON. CALL LIGHT IN REACH.
[2025-02-20 05:22] VITALS: BP 120/51
[2025-02-20 05:23] VITALS: BP 120/51
--- NOTE | 2025-02-20 05:25 | NUR ---
VS OBTAINED AND RECORDED. MACHUCA CATHETER EMPTIED. PATIENT REPOSITIONED SELF ONTO RIGHT SIDE, DENIES OTHER NEEDS, CALL LIGHT IN REACH.
[2025-02-20 05:49] LABS: BASOPHILS 1.2 % (0-2); HEMATOCRIT 21.8 % (35.0-50.0); HEMOGLOBIN 7.2 g/dL (12.0-18.0); LYMPHOCYTES 20.4 % (24-44); MCH 28.1 (27-36); MCV 85.2 fl (81-99); NEUTROPHILS 54.4 % (39-80); PLATELET COUNT 95 K/uL (140-440); RBC 2.56 M/ul (4.3-5.7); RDW 20.2 (10.5-15.0)
[2025-02-20 06:06] LABS: ALBUMIN 1.7 g/dL (3.4-5.0); ALBUMIN/GLOBULIN RATIO 0.57 (1.1-2.4); ANION GAP 9.9 (7-21); BILIRUBIN, TOTAL 0.7 mg/dL (0.2-1.0); BUN/CREATININE RATIO 24.3 (6.0-28.6); CALCIUM 8.4 mg/dL (8.5-10.1); CREATININE, SERUM 1.44 mg/dL (0.70-1.30); POTASSIUM 3.9 mmol/L (3.5-5.1); PROTEIN, TOTAL 4.7 g/dL (6.4-8.2)
--- NOTE | 2025-02-20 06:39 | NUR ---
SCHEDULED MEDICATION ADMINISTERED. NO FURTHER NEEDS. CALL LIGHT IN REACH.
--- NOTE | 2025-02-20 07:44 | NUR ---
RECIEVED BEDSIDE REPORT FROM SADIE GONZALES AND SADIE JORGENSEN. PT IS SLEEPING SOUNDLY. NO FLUIDS. BREATHING EVENELY AND UNLABORED. NO NEEDS AT THIS TIME.
--- NOTE | 2025-02-20 08:30 | NUR ---
Pt discussed in am meeting and will dc today around 11 to [facility]. has orders and will complete.
[2025-02-20] MEDS ORDERED: CEFDINIR300 MG PO (08:59)
[2025-02-20] MEDS ORDERED: METRONIDAZOLE250 MG PO (09:00)
[2025-02-20] MEDS ORDERED: FLUOXETINE HCL10 MG PO (09:01)
[2025-02-20] MEDS ORDERED: IRON325 M1 PO (09:10)
--- NOTE | 2025-02-20 09:11 | NUR ---
Called PT spouse TO ADVISE OF TRANSPORT PLAN. EMS WILL BE HERE AT [phone] TO TRANSPORT TO [place].
--- NOTE | 2025-02-20 10:00 | NUR ---
Received orders, dc summary, and I completed the pasrr. All emailed secure to Sheryl at [facility]. Emar x 7 days printed and added to envelope for [place]. Called and scheduled EMS transport as pt is a paige and staff stated concern pt may fall from a wc. Envelope placed at nurses station and RN notified EMS will arrive around 1045 to transport pt.
[2025-02-20 10:05] VITALS: BP 140/64
--- NOTE | 2025-02-20 10:07 | NUR ---
PATIENT IS IN BED AT THIS TIME, EMPTIED CATHETER. ELECTRONIC TECH CHARTED VITALS AND I&O'S. DAVIN (I) AND DAVIN NELSON ASSISTED IN A BREIF CHANGE, AND GOT HIM READY TO GO HOME. CALL LIGHT WITH IN REACH AND NOTHING ELSE NEEDED AT THIS TIME.
--- NOTE | 2025-02-20 10:36 | NUR ---
PT NOT AVAILABLE FOR VISIT. PROVIDED PRAYER.
--- NOTE | 2025-02-20 11:14 | NUR ---
EMS CAME FOR PATIENT. TRANSFERED TO [facility] WITH DAVIN, RN, AND EMS STAFF. ALL BELONGINGS RETURNED TO EMS STAFF FOR TRANSPORT TO [place] WITH PATIENT. IV REMOVED. MACHUCA IN PLACE. NURSE TO NURSE REPORT GIVEN TO SADIE HERNANDEZ AT [place]. ALL QUESTIONS ANSWERED AND PACKET SENT WITH EMS. LEFT MSG FOR , PAULY TO CALL THE HOSPITAL NON-EMERGENT FOR UPDATE.
[2025-02-21 16:51] LABS: HEPATITIS A ANTIBODY, IGM Negative (Negative); HEPATITIS B CORE ANTIBODY, IGM Negative (Negative); HEPATITIS B SURFACE ANTIGEN Negative (Negative); HEPATITIS C AB CIA INTERP Negative (Negative); HEPATITIS C ANTIBODY CIA INDEX 0.08 IV (())
== END 2025-02-20 11:03 | disposition home or self-care (01) | DRG 811 ==
LOC: ED 10:05 → MS 13:17
PROVIDERS: Colon & Rectal Surgery; Emergency Medicine; Family Medicine; Student in an Organized Health Care Education/Training Program; ADMIT Student in an Organized Health Care Education/Training Program; ATTEND Student in an Organized Health Care Education/Training Program
PROC: 0DBP8ZX Excision of Rectum, Via Natural or Artificial Opening Endoscopic, Diagnostic (ICD-10-PCS; 2025-02-14)
PROC: 0DB78ZX Excision of Stomach, Pylorus, Via Natural or Artificial Opening Endoscopic, Diagnostic (ICD-10-PCS; principal; 2025-02-14 10:15)
DX: D50.9 Iron deficiency anemia, unspecified (principal); J18.9 Pneumonia, unspecified organism; N17.9 Acute kidney failure, unspecified; N13.6 Pyonephrosis; K52.9 Noninfective gastroenteritis and colitis, unspecified; K64.4 Residual hemorrhoidal skin tags; D12.7 Benign neoplasm of rectosigmoid junction; E03.9 Hypothyroidism, unspecified; F32.A Depression, unspecified; E66.01 Morbid (severe) obesity due to excess calories; I87.8 Other specified disorders of veins; E88.09 Other disorders of plasma-protein metabolism, not elsewhere classified; N20.0 Calculus of kidney; N21.0 Calculus in bladder; K64.8 Other hemorrhoids; D69.6 Thrombocytopenia, unspecified; E11.43 Type 2 diabetes mellitus with diabetic autonomic (poly)neuropathy; K31.84 Gastroparesis; K21.9 Gastro-esophageal reflux disease without esophagitis; N40.1 Benign prostatic hyperplasia with lower urinary tract symptoms; R33.8 Other retention of urine; K57.10 Diverticulosis of small intestine without perforation or abscess without bleeding; K57.30 Diverticulosis of large intestine without perforation or abscess without bleeding; E11.649 Type 2 diabetes mellitus with hypoglycemia without coma; E78.5 Hyperlipidemia, unspecified; B96.20 Unspecified Escherichia coli [E. coli] as the cause of diseases classified elsewhere; Z88.8 Allergy status to other drugs, medicaments and biological substances; Z86.73 Personal history of transient ischemic attack (TIA), and cerebral infarction without residual deficits; Z79.84 Long term (current) use of oral hypoglycemic drugs; Z98.890 Other specified postprocedural states; Z96.641 Presence of right artificial hip joint; Z79.899 Other long term (current) drug therapy; Z79.890 Hormone replacement therapy; Z79.82 Long term (current) use of aspirin; Z74.01 Bed confinement status
CPT/HCPCS: 00811; 00813; 36415; 36430; 51701; 71045; 74176; 80048; 80053; 80074; 81001; 82607; 82728; 82746; 83010; 83550; 83615; 83735; 83880; 84100; 84156; 84425; 84439; 84443; 84466; 84484; 85025; 85045; 85060; 86850; 86900; 86901; 86922; 87040; 87077; 87088; 87186; 87902; 88305; 88342; 93005; 93010; 93306; 94667; 94668; 94762; 94799; 97162; 97166; 97530; 97535; 99285-25; A9270; J0692; J0696; J1815; J1940; J2003; J2371; J2405; J2470; J2704; J2919; J7121; P9016; Q0138